=== PATIENT | female | born 1975 | race Caucasian/White ===

== ENCOUNTER 2018-05-27 11:37 | Inpatient (IN) | payer MEDICARE ==
[2018-05-27] MEDS ORDERED: Albuterol Nebulizer 2.5mg/3mL HHN ONE (12:13)
[2018-05-27] MEDS ORDERED: Ipratropium Neb 0.5 mg/2.5 mL UD HHN ONE (12:13)
[2018-05-27] MEDS ORDERED: Albuterol/Ipratropium Neb 3 ML AERS HHN ONE (12:19)
[2018-05-27] MEDS ORDERED: Mag Sulfate 2gm/50mL Premix 2 GM/50 ML BAG IV ONE (12:20)
[2018-05-27 12:23] LABS: BASOPHILE ABSOLUTE 0.2 Th/cumm (0-0.2); EOSINOPHILE ABSOLUTE 1.3 Th/cmm (0.1-0.4); HEMATOCRIT 43.9 % (41.0-60); HEMOGLOBIN 14.5 gm/dL (12-16); LYMPHOCYTE ABSOLUTE 5.7 Th/cmm (1.5-3.0); MEAN CELL VOLUME 85.9 fl (81-100); MEAN CORPUSCULAR HEMOGLOBIN 28.3 pg (27.0-31.0); MEAN PLATELET VOLUME 8.1 fl; MONOCYTE ABSOLUTE 0.8 Th/cmm (0.3-1.0); NEUTROPHILE ABSOLUTE 12.1 Th/cmm (1.8-8.0); PLATELET COUNT 399 Th/cmm (150-400); RED BLOOD COUNT 5.11 Mil/cmm (3.80-5.10); RED CELL DISTRIBUTION WIDTH 13.6 % (11.5-20.0)
[2018-05-27 12:24] LABS: WHITE BLOOD COUNT 20.1 Th/cmm (4.8-10.8)
--- NOTE | 2018-05-27 12:33 | Diagnostic Imaging Report ---
CHEST X-RAY: AP view INDICATION: Intubation, asthma COMPARISON: None FINDINGS: ET tube is seen with tip 4.5 cm above the chirag. There is diffuse increased interstitial lung markings. No pleural effusions. Hyperinflated lungs are noted. The osseous structures are intact. No pneumothorax. IMPRESSION: ET tube with tip 4.5 cm above the Chirag. Diffuse increased interstitial lung markings which may be secondary to patient's asthma. There may be superimposed interstitial infiltrates.
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
[2018-05-27 12:56] LABS: ANION GAP 18.9 (7.0-16.0); BUN - UREA NITROGEN 10 mg/dL (7-25); CALCIUM SERUM 9.4 mg/dL (8.6-10.3); CARBON DIOXIDE 18.7 mEq/L (21.0-31.0); CHLORIDE 100 mEq/L (98-107); CREATININE - SERUM 1.1 mg/dL (0.6-1.2); GFR AFRICAN-AMERICAN > 60.0 ml/min (>90); GFR NON AFRICAN-AMERICAN 57.6 ml/min; GLUCOSE 254 mg/dL (70-105); MAGNESIUM 2.2 mg/dL (1.9-2.7); POTASSIUM SERUM 4.6 mEq/L (3.5-5.1); SODIUM SERUM 133 mEq/L (136-145)
[2018-05-27 13:08] LABS: ATYPICAL LYMPH 7 %; BAND NEUTROPHILE 2 % (0-10); BASOPHIL 1 % (0-3); LYMPHOCYTE 29 % (20-50); MONOCYTE 4 % (2-10); NEUTROPHILS 44 % (40-80); PLATELET ESTIMATE ADEQUATE (NORMAL)
[2018-05-27 13:10] LABS: EOSINOPHIL 13 % (0-5)
[2018-05-27] MEDS ORDERED: Albuterol/Ipratropium Neb 3 ML AERS HHN PRN (14:07)
[2018-05-27 14:57] LABS: pH 7.23 (7.35-7.45)
[2018-05-27 14:59] LABS: ALLEN TEST Positive
[2018-05-27 15:19] VITALS: BP 140/84
[2018-05-27] MEDS: Albuterol/Ipratropium Neb 3 ML AERS HHN SCH ×3 (15:20→22:51)
[2018-05-27] MEDS: Cefepime 1 GM in Sodium Chloride 0.9% 50 ML IV SCH ×2 (16:00→21:22)
[2018-05-27 16:45] LABS: pH 7.22 (7.35-7.45)
[2018-05-27 16:46] LABS: ALLEN TEST Positive
[2018-05-27] MEDS: D5-0.45NS 1,000 ML IV SCH (17:53)
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
[2018-05-27] MEDS: Budesonide 0.5 Mg/2 mL Ud HHN SCH (18:56)
[2018-05-27 20:34] LABS: URINE SOURCE FOLEY PORT
[2018-05-27 20:40] LABS: URINE BILIRUBIN NEGATIVE (NEGATIVE); URINE BLOOD LARGE (NEGATIVE); URINE GLUCOSE (UA) NEGATIVE (NEGATIVE); URINE KETONE NEGATIVE (NEGATIVE); URINE LEUKOCYTE ESTERASE TRACE (NEGATIVE); URINE MICROSCOPIC INDICATED? YES; URINE NITRATE NEGATIVE (NEGATIVE); URINE PH 5.5 (4.6 - 8.0); URINE PROTEIN TRACE mg/dL (NEGATIVE); URINE UROBILINOGEN 0.2 E.U./dL (0.2 - 1.0)
[2018-05-27] MEDS: Chlorhexidine Gluconate 0.12% 15mL Mouthwash MM SCH (20:40)
[2018-05-27 20:50] LABS: URINE CLARITY HAZY (CLEAR); URINE COLOR PINK
[2018-05-27 20:56] LABS: URINE RBC 50-100 /hpf (0-5)
[2018-05-27 20:57] LABS: URINE EPITHELIAL CELLS RARE /lpf (FEW)
[2018-05-27 20:58] LABS: AMPHETAMINE URINE NEGATIVE (NEGATIVE); BARBITURATES URINE NEGATIVE (NEGATIVE); COCAINE METABOLITE QUAL URINE NEGATIVE (NEGATIVE); METHAMPHETAMINES QUAL URINE NEGATIVE (NEGATIVE); OPIATES (MORPHINE) QUAL. URINE NEGATIVE (NEGATIVE); PHENCYCLIDINE (PCP) URINE NEGATIVE (NEGATIVE); TRICYCLICS (TCA) QUAL. URINE NEGATIVE (NEGATIVE); URINE BACTERIA OCCASIONAL /hpf (NONE SEEN)
[2018-05-27 20:59] LABS: BENZODIAZEPINES QUAL URINE POSITIVE (NEGATIVE); CANNABINOID THC NEGATIVE (NEGATIVE); METHADONE URINE NEGATIVE (NEGATIVE)
[2018-05-27 21:10] LABS: INF A SCREEN NEG FOR INF A; INF B SCREEN NEG FOR INF B
[2018-05-28] MEDS: D5-0.45NS 1,000 ML IV SCH ×2 (02:19→23:15)
[2018-05-28] MEDS: Albuterol/Ipratropium Neb 3 ML AERS HHN SCH ×6 (03:18→22:46)
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
[2018-05-28 04:40] LABS: HEMATOCRIT 39.5 % (41.0-60); HEMOGLOBIN 13.3 gm/dL (12-16); MEAN CELL VOLUME 84.3 fl (81-100); MEAN CORPUSCULAR HEMOGLOBIN 28.3 pg (27.0-31.0); MEAN CORPUSCULAR HGB CONC 33.6 pg (28.0-36.0); RED BLOOD COUNT 4.69 Mil/cmm (3.80-5.10); RED CELL DISTRIBUTION WIDTH 13.1 % (11.5-20.0)
[2018-05-28 04:53] LABS: PLATELET COUNT 285 Th/cmm (150-400); WHITE BLOOD COUNT 22.2 Th/cmm (4.8-10.8)
[2018-05-28 05:12] LABS: ANION GAP 17.2 (7.0-16.0); CARBON DIOXIDE 19.7 mEq/L (21.0-31.0); POTASSIUM SERUM 4.9 mEq/L (3.5-5.1)
[2018-05-28 06:24] LABS: BAND NEUTROPHILE 4 % (0-10); LYMPHOCYTE 4 % (20-50); MONOCYTE 2 % (2-10); NEUTROPHILS 90 % (40-80); PLATELET ESTIMATE ADEQUATE (NORMAL)
[2018-05-28] MEDS: Budesonide 0.5 Mg/2 mL Ud HHN SCH ×2 (07:43→18:59)
[2018-05-28 07:54] LABS: CREATININE - SERUM 1.5 mg/dL (0.6-1.2); GFR AFRICAN-AMERICAN 48.7 ml/min (>90); GFR NON AFRICAN-AMERICAN 40.3 ml/min
--- NOTE | 2018-05-28 08:04 | Diagnostic Imaging Report ---
Exam: Portable chest x-ray HISTORY: Shortness of breath. Prior exam: 05/27/2018 Findings: Portable summation of chest reviewed demonstrates unchanged position of the endotracheal tube terminating 2.2 centers above the chirag. There is evidence for bilateral interstitial infiltrates. The costophrenic angles are clear bony thorax intact reviewed IMPRESSION: Bilateral interstitial infiltrates, unchanged compared to prior examination.
[2018-05-28] MEDS: Chlorhexidine Gluconate 0.12% 15mL Mouthwash MM SCH ×2 (08:05→20:39)
[2018-05-28 08:52] LABS: PaCO2 42.5 mmHg (35.0-45.0); PaO2 82.6 mmHg (80.0-100.0); pH 7.32 (7.35-7.45)
[2018-05-28 08:53] LABS: ALLEN TEST Positive; sO2c 95.3 % (92.0-100.0)
[2018-05-28] MEDS: Cefepime 1 GM in Sodium Chloride 0.9% 50 ML IV SCH ×2 (09:18→20:39)
[2018-05-29] MEDS: Albuterol/Ipratropium Neb 3 ML AERS HHN SCH ×5 (02:36→18:49)
[2018-05-29 04:27] LABS: HEMATOCRIT 35.6 % (41.0-60); HEMOGLOBIN 11.9 gm/dL (12-16); LYMPHOCYTE ABSOLUTE 0.5 Th/cmm (1.5-3.0); MEAN CELL VOLUME 84.8 fl (81-100); MEAN CORPUSCULAR HEMOGLOBIN 28.3 pg (27.0-31.0); MEAN CORPUSCULAR HGB CONC 33.4 pg (28.0-36.0); MEAN PLATELET VOLUME 8.3 fl; MONOCYTE ABSOLUTE 0.6 Th/cmm (0.3-1.0); NEUTROPHILE ABSOLUTE 22.1 Th/cmm (1.8-8.0); PLATELET COUNT 233 Th/cmm (150-400); RED BLOOD COUNT 4.19 Mil/cmm (3.80-5.10); RED CELL DISTRIBUTION WIDTH 13.4 % (11.5-20.0)
[2018-05-29 04:34] LABS: ANION GAP 12.9 (7.0-16.0); CALCIUM SERUM 8.4 mg/dL (8.6-10.3); CARBON DIOXIDE 21.5 mEq/L (21.0-31.0); CREATININE - SERUM 1.3 mg/dL (0.6-1.2); GFR AFRICAN-AMERICAN 57.5 ml/min (>90); GFR NON AFRICAN-AMERICAN 47.5 ml/min; MAGNESIUM 2.4 mg/dL (1.9-2.7); POTASSIUM SERUM 4.4 mEq/L (3.5-5.1)
[2018-05-29 04:38] LABS: WHITE BLOOD COUNT 23.2 Th/cmm (4.8-10.8)
[2018-05-29 07:04] LABS: BAND NEUTROPHILE 2 % (0-10); LYMPHOCYTE 2 % (20-50); MONOCYTE 3 % (2-10); NEUTROPHILS 93 % (40-80); PLATELET ESTIMATE ADEQUATE (NORMAL)
[2018-05-29] MEDS: Budesonide 0.5 Mg/2 mL Ud HHN SCH ×2 (07:43→18:45)
[2018-05-29] MEDS: Chlorhexidine Gluconate 0.12% 15mL Mouthwash MM SCH ×2 (08:07→20:38)
[2018-05-29] MEDS: Cefepime 1 GM in Sodium Chloride 0.9% 50 ML IV SCH (08:12)
--- NOTE | 2018-05-29 09:24 | Diagnostic Imaging Report ---
CHEST X-RAY: AP view INDICATION: Shortness of breath COMPARISON: 05/28/2018 FINDINGS: ET tube is seen with tip 2.2 cm above the Kathy. Bilateral interstitial infiltrates are again noted with suboptimal lung volumes. There may be trace left pleural fluid. Heart size is normal. IMPRESSION: Suboptimal lung volumes with persistent bilateral interstitial infiltrates.
[2018-05-29 09:40] LABS: PaCO2 42.3 mmHg (35.0-45.0); pH 7.33 (7.35-7.45)
[2018-05-29 09:41] LABS: PaO2 61.9 mmHg (80.0-100.0); sO2c 90.1 % (92.0-100.0)
[2018-05-29 09:42] LABS: ALLEN TEST Positive
[2018-05-29] MEDS: D5-0.45NS 1,000 ML IV SCH ×2 (09:49→15:50)
--- NOTE | 2018-05-29 16:28 | Progress Notes ---
DATE: 05/28/2018 PULMONARY PROGRESS NOTE OBJECTIVE: GENERAL: The patient is sedated, appears to be comfortable on the ventilator. VITAL SIGNS: Temperature 98.7, pulse 107, respirations 18, blood pressure 100/52, saturation 96%. CHEST: Good breath sounds, better air entry, decreased wheezing. HEART: Regular rate and rhythm. ABDOMEN: Soft. EXTREMITIES: No edema. LABORATORY DATA: WBC is 22.2, hemoglobin 13.3, hematocrit 39.5, platelets 285. ABGs: pH of 7.32, pCO2 of 42, pO2 of 82, bicarbonate of 21, saturation of 95%. Sodium 134, potassium 4.3, BUN 15, creatinine 1.5, lactic acid 2.34. IMAGING: Chest x-ray showed ET tube in place, bibasilar infiltrates. IMPRESSION: 1. Respiratory failure. 2. Asthma exacerbation. 3. Pneumonia. 4. Weakness. 5. Obesity. PLAN: 1. Continue ventilator support. 2. IV fluids. 3. Nebulizer treatment. 4. IV steroids decreased. 5. Follow up ABGs. Start weaning tomorrow if stable. Discussed with at bedside. JOB# [id number]
[2018-05-29] MEDS: Vancomycin HCl 1.5 GM in Sodium Chloride 0.9% 500 ML IV SCH (17:30)
[2018-05-30] MEDS: Albuterol/Ipratropium Neb 3 ML AERS HHN SCH ×7 (00:05→22:49)
[2018-05-30] MEDS: Vancomycin HCl 1.5 GM in Sodium Chloride 0.9% 500 ML IV SCH ×2 (04:21→18:00)
[2018-05-30 05:28] LABS: HEMATOCRIT 34.8 % (41.0-60); HEMOGLOBIN 11.7 gm/dL (12-16); MEAN CELL VOLUME 86.1 fl (81-100); MEAN CORPUSCULAR HEMOGLOBIN 28.9 pg (27.0-31.0); MEAN CORPUSCULAR HGB CONC 33.5 pg (28.0-36.0); MEAN PLATELET VOLUME 8.9 fl; PLATELET COUNT 236 Th/cmm (150-400); RED BLOOD COUNT 4.04 Mil/cmm (3.80-5.10); RED CELL DISTRIBUTION WIDTH 14.1 % (11.5-20.0)
[2018-05-30 05:31] LABS: BUN - UREA NITROGEN 27 mg/dL (7-25); CALCIUM SERUM 8.4 mg/dL (8.6-10.3); CARBON DIOXIDE 23.6 mEq/L (21.0-31.0); CHLORIDE 109 mEq/L (98-107); GFR AFRICAN-AMERICAN > 60.0 ml/min (>90); GFR NON AFRICAN-AMERICAN > 60.0 ml/min; GLUCOSE 154 mg/dL (70-105); POTASSIUM SERUM 4.6 mEq/L (3.5-5.1); SODIUM SERUM 140 mEq/L (136-145)
[2018-05-30 05:35] LABS: WHITE BLOOD COUNT 21.3 Th/cmm (4.8-10.8)
[2018-05-30] MEDS: D5-0.45NS 1,000 ML IV SCH (05:54)
[2018-05-30 06:45] LABS: LYMPHOCYTE 2 % (20-50); MONOCYTE 3 % (2-10); NEUTROPHILS 95 % (40-80); PLATELET ESTIMATE ADEQUATE (NORMAL)
[2018-05-30] MEDS: Budesonide 0.5 Mg/2 mL Ud HHN SCH ×2 (07:39→19:13)
[2018-05-30] MEDS: Chlorhexidine Gluconate 0.12% 15mL Mouthwash MM SCH ×2 (08:30→20:56)
[2018-05-30 09:17] LABS: pH 7.39 (7.35-7.45)
[2018-05-30 09:18] LABS: PaCO2 39.2 mmHg (35.0-45.0); PaO2 67.1 mmHg (80.0-100.0)
[2018-05-30 09:23] LABS: sO2c 93.3 % (92.0-100.0)
--- NOTE | 2018-05-30 09:29 | Diagnostic Imaging Report ---
CHEST X-RAY: AP view INDICATION: NG tube placement COMPARISON: 05/29/2018 at 7:17 AM FINDINGS: An NG tube is in place with tip in the stomach. Consider 5 cm advancement for optimal positioning if indicated. Endotracheal tube is seen with tip 4.5 cm above the Kathy. Interstitial infiltrates are seen greatest along the lung bases. IMPRESSION: NG tube within the stomach. Consider 5 cm advancement for optimal positioning. ET tube with tip 4.5 cm above the Kathy Interstitial infiltrates greatest within the lung bases.
--- NOTE | 2018-05-30 09:31 | Diagnostic Imaging Report ---
CHEST X-RAY: AP view INDICATION: Shortness of breath COMPARISON: 05/29/2018 FINDINGS: Endotracheal tube is seen with tip 5.4 cm above the chirag. NG tube is visualized coursing below the diaphragm with tip not seen. Persistent bilateral interstitial infiltrates are seen greatest along the lung bases. IMPRESSION: Persistent bilateral interstitial infiltrates, greatest in the lung bases ET tube with tip 5.4 cm above the Chirag.
--- NOTE | 2018-05-30 15:41 | Progress Notes ---
DATE: 05/29/2018 SUBJECTIVE: The patient is awake, arousable, wants the tube out, some agitation at times, no distress. OBJECTIVE: VITAL SIGNS: Temperature 97.5, pulse 93, respirations 20, blood pressure 123/74, saturation is 94%. CHEST: Good breath sounds. No wheezing. Few rhonchi. HEART: Regular rate and rhythm. No murmurs. ABDOMEN: Soft. EXTREMITIES: No edema. IMAGING: The chest x-ray showed worsening right lower lobe infiltrate. LABORATORY DATA: ABG is pH 7.33, pCO2 42, pO2 61, bicarb 21, saturation 90%. Sodium 134, potassium 4.4, BUN 20, creatinine 1.3. WBC is 23.2, hemoglobin 11.9, hematocrit 35.6, platelets 233. IMPRESSION: 1. Respiratory failure. 2. Pneumonia. 3. Asthma exacerbation. PLAN: 1. Switch broad-spectrum antibiotics to Zosyn and vancomycin. 2. We will have follow up sputum culture. 3. Steroids and IV steroids. 4. Try simv and pressure support and follow up chest x-ray and ABGs and once it is felt that the x-ray is clear, the patient can continue weaning little bit further, hopefully extubate soon. JOB# [id number] HAYLIE
[2018-05-30 20:30] LABS: PaCO2 34.5 mmHg (35.0-45.0); PaO2 61.3 mmHg (80.0-100.0); pH 7.43 (7.35-7.45); sO2c 92.4 % (92.0-100.0)
[2018-05-30 20:31] LABS: ALLEN TEST Y
[2018-05-30] MEDS: Morphine Sulfate 2 mg/mL 1mL Syr IVP PRN (23:53)
[2018-05-31] MEDS: Vancomycin HCl 1.5 GM in Sodium Chloride 0.9% 500 ML IV SCH ×3 (01:05→21:32)
[2018-05-31] MEDS: Albuterol/Ipratropium Neb 3 ML AERS HHN SCH ×5 (02:49→23:25)
[2018-05-31 04:43] LABS: HEMATOCRIT 35.8 % (41.0-60); MEAN CELL VOLUME 85.7 fl (81-100); MEAN CORPUSCULAR HEMOGLOBIN 28.8 pg (27.0-31.0); MEAN CORPUSCULAR HGB CONC 33.6 pg (28.0-36.0); PLATELET COUNT 268 Th/cmm (150-400); RED BLOOD COUNT 4.18 Mil/cmm (3.80-5.10)
[2018-05-31 04:52] LABS: WHITE BLOOD COUNT 15.7 Th/cmm (4.8-10.8)
[2018-05-31 05:18] LABS: ALB/GLOB RATIO 1.4 (1.0-1.8); ALBUMIN 3.5 gm/dL (3.7-5.3); ALKALINE PHOSPHATASE 53 U/L (34-104); ANION GAP 14.4 (7.0-16.0); BILIRUBIN,TOTAL 0.7 mg/dL (0.3-1.0); BUN - UREA NITROGEN 31 mg/dL (7-25); CARBON DIOXIDE 22.9 mEq/L (21.0-31.0); CHLORIDE 110 mEq/L (98-107); CREATININE - SERUM 1.1 mg/dL (0.6-1.2); GFR AFRICAN-AMERICAN > 60.0 ml/min (>90); GFR NON AFRICAN-AMERICAN 57.6 ml/min; GLUCOSE 154 mg/dL (70-105); POTASSIUM SERUM 4.3 mEq/L (3.5-5.1); SGOT 53 U/L (13-39); SGPT/ALT 63 U/L (7-52); SODIUM SERUM 143 mEq/L (136-145); TOTAL PROTEIN,SERUM 6.1 gm/dL (6.0-8.3)
[2018-05-31] MEDS: Budesonide 0.5 Mg/2 mL Ud HHN SCH ×2 (07:22→19:17)
[2018-05-31 07:55] LABS: BAND NEUTROPHILE 1 % (0-10); LYMPHOCYTE 10 % (20-50); MONOCYTE 5 % (2-10); NEUTROPHILS 84 % (40-80)
[2018-05-31] MEDS: Chlorhexidine Gluconate 0.12% 15mL Mouthwash MM SCH ×2 (08:30→20:49)
[2018-05-31] MEDS ORDERED: Sodium Chloride 0.9% 1,000 ML IV SCH (10:00)
--- NOTE | 2018-05-31 10:03 | Diagnostic Imaging Report ---
CHEST X-RAY: AP view INDICATION: Shortness of breath COMPARISON: 05/30/2018 FINDINGS: Support devices are stable. Persistent diffuse and additional infiltrates are seen greatest along the left base. No pleural effusions. Heart size is normal. IMPRESSION: Persistent diffuse interstitial infiltrates, greatest along the left base. If indicated short-term follow-up CT would also provide for additional detail and assessment.
[2018-05-31 11:20] LABS: pH 7.37 (7.35-7.45)
[2018-05-31 11:21] LABS: ALLEN TEST Y
[2018-05-31] MEDS ORDERED: Sodium Chloride 0.9% 1,000 ML IV ONE (11:48)
[2018-05-31] MEDS ORDERED: Albuterol/Ipratropium Neb 3 ML AERS HHN ONE (12:15)
--- NOTE | 2018-05-31 13:41 | Diagnostic Imaging Report ---
CT Chest without IV contrast HISTORY: Pneumonia COMPARISON: Chest x-ray the same day. Technique: Axial images were obtained from the base of the neck to the upper abdomen without IV contrast. Reconstructions were made. Total DLP 398 CTD I 10.2 Findings: Endotracheal tube is seen with tip 5 cm above the chirag. NG tube is seen with tip in the stomach. Evaluation of mediastinum is limited due to lack of IV contrast. No mediastinal adenopathy. Heart size is normal. No pericardial effusion. Diffuse emphysematous lung changes are seen with bilateral lower lobe infiltrates and consolidation. Hypoventilatory lung changes are also noted. No pleural effusions. The upper abdomen demonstrates no acute abnormalities. Evaluation of the osseous structures demonstrate areas of increased sclerosis along a few thoracic pedicles most pronounced at T9 measuring up to 1.5 cm. IMPRESSION: Extensive pulmonary infiltrates greatest along the lower lung zones, left greater than right, with consolidation changes. Please correlate clinically for pneumonia. Diffuse emphysematous changes of lungs. Incidentally noted areas of increased sclerosis along the pedicular regions most pronounced at T9 measuring up to 1.5 cm. Etiology is uncertain. Although findings may represent bone islands, osseous metastatic disease cannot be completely excluded. Please correlate with clinical findings and old exams. A follow-up nuclear Ed bone scan follow-up may also be obtained for further assessment. ET tube with tip 5 cm above the chirag NG tube in the stomach.
--- NOTE | 2018-05-31 14:56 | Progress Notes ---
DATE: 05/30/2018 PULMONARY PROGRESS NOTE SUBJECTIVE: The patient appears to be doing okay. OBJECTIVE: GENERAL: No distress. Once the tube out, tolerating diet ____ for now. VITAL SIGNS: Temperature is 99.0, pulse is 102, respirations 22, blood pressure 130/82, saturation is 93%. CHEST: Good breath sounds. No wheezing. Few rhonchi. HEART: Regular. ABDOMEN: Soft. EXTREMITIES: No edema. DIAGNOSTIC DATA: Chest x-rays, some decrease in bilateral infiltrates. LABORATORY DATA: WBC 21.3, hemoglobin 9.7, platelets are 236. ABGs: pH 7.39, pCO2 39, pO2 67, bicarbonate is 23. Sodium 140, potassium 4.6, BUN 27, creatinine 1.0. IMPRESSION: 1. Respiratory failure. 2. Pneumonia. 3. Asthma. 4. Weakness. PLAN: The patient will be given weaning trial; if not tolerated, we will try again tomorrow. Follow up ABG and chest x-ray. JOB# [id number]
[2018-05-31] MEDS: Azithromycin 500 MG in Sodium Chloride 0.9% 250 ML IV SCH (15:15)
[2018-05-31] MEDS: Morphine Sulfate 2 mg/mL 1mL Syr IVP PRN (22:39)
[2018-06-01] MEDS: Albuterol/Ipratropium Neb 3 ML AERS HHN SCH ×6 (04:14→22:41)
[2018-06-01 04:33] LABS: HEMATOCRIT 32.2 % (41.0-60); MEAN CELL VOLUME 85.3 fl (81-100); MEAN CORPUSCULAR HEMOGLOBIN 29.1 pg (27.0-31.0); MEAN CORPUSCULAR HGB CONC 34.1 pg (28.0-36.0); MEAN PLATELET VOLUME 8.3 fl; PLATELET COUNT 243 Th/cmm (150-400); RED BLOOD COUNT 3.78 Mil/cmm (3.80-5.10); RED CELL DISTRIBUTION WIDTH 13.9 % (11.5-20.0)
[2018-06-01 04:40] LABS: WHITE BLOOD COUNT 15.9 Th/cmm (4.8-10.8)
[2018-06-01 05:10] LABS: ANION GAP 11.1 (7.0-16.0); BUN - UREA NITROGEN 35 mg/dL (7-25); CALCIUM SERUM 7.7 mg/dL (8.6-10.3); CARBON DIOXIDE 24.6 mEq/L (21.0-31.0); CHLORIDE 113 mEq/L (98-107); CREATININE - SERUM 0.9 mg/dL (0.6-1.2); GFR AFRICAN-AMERICAN > 60.0 ml/min (>90); GFR NON AFRICAN-AMERICAN > 60.0 ml/min; GLUCOSE 132 mg/dL (70-105); MAGNESIUM 2.5 mg/dL (1.9-2.7); POTASSIUM SERUM 4.7 mEq/L (3.5-5.1); SODIUM SERUM 144 mEq/L (136-145)
[2018-06-01 05:34] LABS: LYMPHOCYTE 4 % (20-50); MONOCYTE 4 % (2-10); NEUTROPHILS 92 % (40-80); PLATELET ESTIMATE ADEQUATE (NORMAL)
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
[2018-06-01] MEDS: Budesonide 0.5 Mg/2 mL Ud HHN SCH ×2 (07:25→18:50)
[2018-06-01] MEDS: Chlorhexidine Gluconate 0.12% 15mL Mouthwash MM SCH (08:00)
--- NOTE | 2018-06-01 08:12 | Diagnostic Imaging Report ---
Exam: Chest portable HISTORY: Shortness of breath Findings: Portable initially chest at 0 750 reviewed and compared to prior study the early demonstrates unchanged appearance of the bilateral pulmonic infiltrates with superimposed congestion. The endotracheal tube and NG tube are noted. The costophrenic angles are clear there is evidence for right basilar atelectasis most likely pleural thickening. Bony thorax is intact. IMPRESSION: Unchanged prior to prior study day prior.
[2018-06-01 09:03] LABS: pH 7.37 (7.35-7.45); sO2c 90.5 % (92.0-100.0)
[2018-06-01 09:04] LABS: ALLEN TEST Y
[2018-06-01] MEDS: Vancomycin HCl 1.5 GM in Sodium Chloride 0.9% 500 ML IV SCH ×2 (10:00→21:23)
[2018-06-01 12:13] LABS: PaCO2 42.2 mmHg (35.0-45.0); PaO2 59.8 mmHg (80.0-100.0); pH 7.38 (7.35-7.45)
[2018-06-01 12:15] LABS: ALLEN TEST Y
[2018-06-01] MEDS: Azithromycin 500 MG in Sodium Chloride 0.9% 250 ML IV SCH (15:43)
--- NOTE | 2018-06-01 20:59 | Progress Notes ---
DATE: 05/31/2018 SUBJECTIVE: The patient appears to be doing okay, still having some secretions, tolerating current settings, sats are running at 92-93% at 50%. OBJECTIVE: VITAL SIGNS: Temperature is 98.5, pulse is 105, respirations are 18, and blood pressure is 150/73. CHEST: Good breath sounds, few rhonchi, but decreased. HEART: Regular rate and rhythm. ABDOMEN: Soft. EXTREMITIES: No edema. DIAGNOSTIC STUDIES: Chest x-ray shows some decrease in infiltrate on the right side, but some evidence of fluid in the left base. A CT chest; bilateral infiltrate, no other abnormalities. IMPRESSION: 1. Respiratory failure. 2. Bilateral pneumonia. 3. Asthma. 4. Obesity. PLAN: 1. Continue IV antibiotics, add Zithromax. 2. Follow up CBC. 3. Suggest ID consultation. 4. Legionella titers. 5. We will keep the patient one more day on the vent and hopefully clear the pneumonia a little bit more before giving a final extubation trial. Discussed with nursing staff. JOB# [id number]
--- NOTE | 2018-06-01 23:59 | Infectious Disease Prog Note ---
Infectious Disease Subjective - Review of Systems Service Date: 06/01/18 Events since last encounter: Patient was extubated successfully, gives h/o CORONADO and tuberous sclerosis. Otherwise, she feels better. Subjective: above normal temperature. On ventimask. Infectious Disease Objective - Results Result Diagrams: 06/01/18 04:10 06/01/18 04:10 Recent Labs: Laboratory Last Values WBC 15.9 Th/cmm (4.8-10.8) H 06/01/18 04:10 RBC 3.78 Mil/cmm (3.80-5.10) L 06/01/18 04:10 Hgb 11.0 gm/dL (12-16) L 06/01/18 04:10 Hct 32.2 % (41.0-60) L 06/01/18 04:10 MCV 85.3 fl (81-100) 06/01/18 04:10 MCH 29.1 pg (27.0-31.0) 06/01/18 04:10 MCHC Differential 34.1 pg (28.0-36.0) 06/01/18 04:10 RDW 13.9 % (11.5-20.0) 06/01/18 04:10 Plt Count 243 Th/cmm (150-400) 06/01/18 04:10 MPV 8.3 fl 06/01/18 04:10 Add Manual Diff YES 06/01/18 04:10 Band Neutrophils % 1 % (0-10) 05/31/18 04:15 Neutrophils (Manual) 92 % (40-80) H 06/01/18 04:10 Lymphocytes 4 % (20-50) L 06/01/18 04:10 Monocytes 4 % (2-10) 06/01/18 04:10 Eosinophils 13 % (0-5) H 05/27/18 12:10 Basophils 1 % (0-3) 05/27/18 12:10 Atypical Lymphocytes 7 % 05/27/18 12:10 Platelet Estimate ADEQUATE (NORMAL) 06/01/18 04:10 Specimen Source ARTERIAL 06/01/18 12:00 Sample Site Right Radial 06/01/18 12:00 pH 7.38 (7.35-7.45) 06/01/18 12:00 pCO2 42.2 mmHg (35.0-45.0) 06/01/18 12:00 pO2 59.8 mmHg (80.0-100.0) L 06/01/18 12:00 HCO3 24.5 mEq/L (20.0-26.0) 06/01/18 12:00 Base Excess -0.6 mEq/L (-3.0-3.0) 06/01/18 12:00 O2 Saturation 90.0 % (92.0-100.0) L 06/01/18 12:00 Obi Test Y 06/01/18 12:00 Vent Rate N/A 06/01/18 12:00 Inspired O2 60 06/01/18 12:00 Tidal Volume N/A 06/01/18 12:00 PEEP N/A 06/01/18 12:00 Pressure (ins/psv/peep) N/A 06/01/18 12:00 Critical Value DRAMOS 06/01/18 12:00 Sodium 144 mEq/L (136-145) 06/01/18 04:10 Potassium 4.7 mEq/L (3.5-5.1) 06/01/18 04:10 Chloride 113 mEq/L (98-107) H 06/01/18 04:10 Carbon Dioxide 24.6 mEq/L (21.0-31.0) 06/01/18 04:10 Anion Gap 11.1 (7.0-16.0) 06/01/18 04:10 BUN 35 mg/dL (7-25) H 06/01/18 04:10 Creatinine 0.9 mg/dL (0.6-1.2) 06/01/18 04:10 Est GFR ( Amer) > 60.0 ml/min (>90) 06/01/18 04:10 Est GFR (Non-Af Amer) > 60.0 ml/min 06/01/18 04:10 BUN/Creatinine Ratio 38.9 06/01/18 04:10 Glucose 132 mg/dL (70-105) H 06/01/18 04:10 Whole Bld Lactic Acid 2.34 mmol/L (0.60-1.99) H* 05/28/18 06:05 Calcium 7.7 mg/dL (8.6-10.3) L 06/01/18 04:10 Magnesium 2.5 mg/dL (1.9-2.7) 06/01/18 04:10 Total Bilirubin 0.7 mg/dL (0.3-1.0) 05/31/18 04:15 AST 53 U/L (13-39) H 05/31/18 04:15 ALT 63 U/L (7-52) H 05/31/18 04:15 Alkaline Phosphatase 53 U/L (34-104) 05/31/18 04:15 Total Protein 6.1 gm/dL (6.0-8.3) 05/31/18 04:15 Albumin 3.5 gm/dL (3.7-5.3) L 05/31/18 04:15 Globulin 2.6 gm/dL 05/31/18 04:15 Albumin/Globulin Ratio 1.4 (1.0-1.8) 05/31/18 04:15 Serum , Qual NEGATIVE (NEGATIVE) 05/27/18 14:10 Urine Source [place] 05/27/18 20:15 Urine Color PINK 05/27/18 20:15 Urine Clarity HAZY (CLEAR) 05/27/18 20:15 Urine pH 5.5 (4.6 - 8.0) 05/27/18 20:15 Ur Specific [place] 1.015 (1.005-1.030) 05/27/18 20:15 Urine Protein TRACE mg/dL (NEGATIVE) 05/27/18 20:15 Urine Glucose (UA) NEGATIVE mg/dL (NEGATIVE) 05/27/18 20:15 Urine Ketones NEGATIVE mg/dL (NEGATIVE) 05/27/18 20:15 Urine Blood LARGE (NEGATIVE) H 05/27/18 20:15 Urine Nitrate NEGATIVE (NEGATIVE) 05/27/18 20:15 Urine Bilirubin NEGATIVE (NEGATIVE) 05/27/18 20:15 Urine Urobilinogen 0.2 E.U./dL (0.2 - 1.0) 05/27/18 20:15 Ur Leukocyte Esterase TRACE (NEGATIVE) H 05/27/18 20:15 Urine RBC 50-100 /hpf (0-5) H 05/27/18 20:15 Urine WBC 2-5 /hpf (0-5) 05/27/18 20:15 Ur Epithelial Cells RARE /lpf (FEW) 05/27/18 20:15 Urine Bacteria OCCASIONAL /hpf (NONE SEEN) 05/27/18 20:15 Fluid Glucose 132.0 mg/dL 05/30/18 15:35 Vancomycin Trough 13.0 ug/mL (5-10) H 05/30/18 15:35 Urine Opiates Screen NEGATIVE (NEGATIVE) 05/27/18 20:15 Urine Methadone Screen NEGATIVE (NEGATIVE) 05/27/18 20:15 Ur Barbiturates Screen NEGATIVE (NEGATIVE) 05/27/18 20:15 Ur Tricyclics Screen NEGATIVE (NEGATIVE) 05/27/18 20:15 Ur Phencyclidine Scrn NEGATIVE (NEGATIVE) 05/27/18 20:15 Amphetamines Screen NEGATIVE (NEGATIVE) 05/27/18 20:15 U Methamphetamines Scrn NEGATIVE (NEGATIVE) 05/27/18 20:15 U Benzodiazepines Scrn POSITIVE (NEGATIVE) H 05/27/18 20:15 U Cocaine Metab Screen NEGATIVE (NEGATIVE) 05/27/18 20:15 U Cannabinoids Screen NEGATIVE (NEGATIVE) 05/27/18 20:15 Influenza A (Rapid) NEG FOR INF A 05/27/18 20:25 Influenza B (Rapid) NEG FOR INF B 05/27/18 20:25 - Physical Exam Vitals and I&O: Vital Signs Temp 98.8 F 06/01/18 23:00 Pulse 87 06/01/18 23:00 Resp 18 06/01/18 23:00 BP 152/107 06/01/18 23:00 Pulse Ox 93 06/01/18 23:00 Intake & Output 06/01/18 06/01/18 06/02/18 06:59 18:59 06:59 Intake Total 2560.520 1200 Output Total 1000 900 Balance 1560.520 300 Weight (lbs) 113.398 kg 111.13 kg Intake: Intake, IV Amount 1640.520 600 Piperacillin Sodium/ 100 100 Tazobact 4.5 gm In Sodium Chloride 0.9% 100 ml @ 100 mls/hr IV Q8H [facility] Rx# :[id number] Propofol 1,000 mg In 100 468.520 ml @ 40 MCG/KG/MIN 28.086 mls/hr IV TITR [facility] Rx#: [id number] Sodium Chloride 0.9% 1, 572.0 000 ml @ 30 mls/hr IV . Q24H [facility] Rx#:[id number] Vancomycin HCl 1.5 gm In 500 500 Sodium Chloride 0.9% 500 ml @ 250 mls/hr IV Q12HR@ 1000,2200 [facility] Rx#: [id number] Tube Feeding 720 Other 200 600 Output: Urine 1000 900 Other: # Bowel Movements 1 1 Stool Characteristics Soft Soft Soft Liquid Brown Brown Brown Weight Source Bedscale Bedscale Active Medications: Current Medications Acetylcysteine (Mucomyst 20%) 2 ml HHN Q4HRT [facility] Stop: 07/28/18 14:59 Last Admin: 06/01/18 22:41 Dose: 2 ml Albuterol/Ipratropium (Duoneb Neb) 3 ml HHN Q4HRT [facility] Stop: 07/26/18 15:14 Last Admin: 06/01/18 22:41 Dose: 3 ml Budesonide (Pulmicort) 0.5 mg HHN BIDRT [facility] Stop: 07/26/18 18:59 Last Admin: 06/01/18 18:50 Dose: 0.5 mg Piperacillin Sod/Tazobactam (Sod 4.5 gm/ Sodium Chloride) 100 mls @ 100 mls/hr IV Q8H [facility] Stop: 07/28/18 14:59 Last Admin: 06/01/18 14:48 Dose: 100 mls/hr Vancomycin HCl 1.5 gm/ Sodium (Chloride) 500 mls @ 250 mls/hr IV Q12HR@1000, 2200 [facility] Stop: 07/30/18 00:59 Last Admin: 06/01/18 21:23 Dose: 250 mls/hr Azithromycin 500 mg/ Sodium (Chloride) 250 mls @ 250 mls/hr IV Q24HR [facility] Stop: 07/30/18 14:59 Last Admin: 06/01/18 15:43 Dose: 250 mls/hr Lorazepam (Ativan) 1 mg IVP Q4HR PRN; Protocol PRN Reason: Agitation Stop: 07/27/18 19:25 Last Admin: 06/01/18 02:22 Dose: 1 mg Methylprednisolone Sodium Succinate (Solu-Medrol) 80 mg IVP Q8HR [facility] Stop: 07/30/18 14:29 Last Admin: 06/01/18 20:46 Dose: 80 mg Miscellaneous (Vancomycin Iv Per Pharmacy) 1 ea PRN PRN PRN Reason: PROTOCOL Stop: 07/28/18 14:01 Miscellaneous (Zosyn Iv Per Pharmacy) 1 ea PRN PRN PRN Reason: PROTOCOL Stop: 07/28/18 14:04 Morphine Sulfate (Morphine) 1 mg IVP Q4HR PRN PRN Reason: Pain (Moderate) Stop: 07/29/18 10:20 Last Admin: 05/31/18 22:39 Dose: 1 mg Pantoprazole Sodium (Protonix) 40 mg IVP DAILY [facility] Stop: 07/26/18 20:59 Last Admin: 06/01/18 08:47 Dose: 40 mg General: no acute distress, well developed, well nourished HEENT: atraumatic, normocephalic, PERRLA Neck: supple, no thyromegaly Cardiovascular: S1S2, regular Lungs: clear to auscultation bilaterally, clear to percussion, crackles Abdomen: soft, no tender, no distended Extremities: no cyanosis, no clubbing, no edema Neurological: awake, alert, oriented Skin: intact - Procedures Procedures: Procedures Procedure Code Date RESPIRATORY VENTILATION, GREATER THAN 96 CONSECUTIVE HOURS [id number] 05/27/18 Infectious Disease Assmt/Plan - Assessment Assessment: 1. Pneumonia. 2. Respiratory failure. 3. Sepsis. 4. Asthma and chronic obstructive pulmonary disease. 5. May have interstitial lung disease. 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 - Plan Plan: 1. Continue vancomycin, Zosyn and Zithromax at this time. 2. Continue same treatment. Nutritional Asmnt/Malnutr-PDOC - Dietary Evaluation Malnutrition Findings (Please click <Entered> for more info): Nutritional Asmnt/Malnutrition Start: 05/28/18 14: 15 Text: Status: Complete Freq: Protocol: Document 05/28/18 14:15 [email or web address] (Rec: 05/28/18 14:37 [email or web address]) Nutritional Asmnt/Malnutrition Patient General Information Nutritional Screening High Risk Diagnosis respiratory arrest Pertinent Medical Hx/Surgical Hx asthma/COPD Subjective Information Pt from home admitted for respiratory arrest. Pt seen intubated to vent at time of visit. Pt is on propofol noted d/t increasing restlessness per RN note. Glucose 254 at admission noted, trending down to 168 today. Current Diet Order/ Nutrition Support no diet order Pertinent Medications D5-0.45ns, protonix, propofol (55mcg/kg/min) Pertinent Labs 05/28 Na 134, Cr 1.5, glucose 168 05/27 Na 133, Glucose 254 Nutritional Hx/Data Height 1.78 m Height (Calculated Centimeters) 177.8 Current Weight (lbs) 116.12 kg Weight (Calculated Kilograms) 116.1 Weight (Calculated Grams) 200163.6 [place] Body Weight 150 Body Mass Index (BMI) 36.7 Weight Status Obese GI Symptoms GI Symptoms None Last BM not indicated Skin Integrity/Comment: intact Current %PO Negligible < 25% Estimated Nutritional Goals BEE in Kcals: Adj wt of IBW Calories/Kcals/Kg 25-30 adj wt 80kg Kcals Calculated 5250-4059 Protein: Adj wt of IBW Protein g/k Protein Calculated 80 Fluid: ml 2000-2400ml (1ml/kcal) Nutritional Problem 1. Problem Problem inadequate energy intake Etiology pt intubated on vent secondary to respiratory arrest Signs/Symptoms: Pt on NPO status Intervention/Recommendation Comments 1. Monitor NPO status. Will consider alternative nutrition route if pt not able to start oral diet. 2. Monitor wt, labs and skin integrity 3. F/U as high risk in 2-3 days Expected Outcomes/Goals Expected Outcomes/Goals 1. Pt to meet at least 75% of nutritinal needs via oral diet or nutrition support 2. Wt stability, skin to remain intact, labs to approach WNL.
[2018-06-02] MEDS: Albuterol/Ipratropium Neb 3 ML AERS HHN SCH ×6 (02:56→23:10)
[2018-06-02] MEDS: Budesonide 0.5 Mg/2 mL Ud HHN SCH ×2 (06:33→19:15)
[2018-06-02 07:34] LABS: HEMATOCRIT 36.4 % (41.0-60); MEAN CELL VOLUME 87.1 fl (81-100); MEAN CORPUSCULAR HEMOGLOBIN 28.7 pg (27.0-31.0); MEAN PLATELET VOLUME 8.2 fl; PLATELET COUNT 241 Th/cmm (150-400); RED BLOOD COUNT 4.18 Mil/cmm (3.80-5.10); RED CELL DISTRIBUTION WIDTH 13.8 % (11.5-20.0)
[2018-06-02 07:45] LABS: WHITE BLOOD COUNT 17.5 Th/cmm (4.8-10.8)
[2018-06-02 07:47] LABS: ANION GAP 12.3 (7.0-16.0); BUN - UREA NITROGEN 35 mg/dL (7-25); CALCIUM SERUM 8.6 mg/dL (8.6-10.3); CARBON DIOXIDE 26.3 mEq/L (21.0-31.0); CHLORIDE 109 mEq/L (98-107); CREATININE - SERUM 0.8 mg/dL (0.6-1.2); GFR AFRICAN-AMERICAN > 60.0 ml/min (>90); GFR NON AFRICAN-AMERICAN > 60.0 ml/min; GLUCOSE 137 mg/dL (70-105); POTASSIUM SERUM 4.6 mEq/L (3.5-5.1); SODIUM SERUM 143 mEq/L (136-145)
[2018-06-02 08:08] LABS: BAND NEUTROPHILE 1 % (0-10); BASOPHIL 0 % (0-3); EOSINOPHIL 0 % (0-5); LYMPHOCYTE 8 % (20-50); MONOCYTE 3 % (2-10); NEUTROPHILS 88 % (40-80)
--- NOTE | 2018-06-02 08:25 | Diagnostic Imaging Report ---
Exam: Portable chest x-ray HISTORY: Shortness of breath. Findings: Portable summation of the chest at 0729 hours reviewed and compared to prior study of 06/01/2018 demonstrates unchanged appearance of bilateral interstitial infiltrates most likely with superimposed congestion. The patient has been extubated. The distal tip of NG tube is not visualized. The costophrenic angles are clear. IMPRESSION: Status post extubation. Unchanged appearance of bilateral infiltrates with superimposed congestion.
[2018-06-02] MEDS: Vancomycin HCl 1.5 GM in Sodium Chloride 0.9% 500 ML IV SCH (09:41)
--- NOTE | 2018-06-02 09:41 | Infectious Disease Prog Note ---
Infectious Disease Subjective - Review of Systems Service Date: 06/02/18 Subjective: above normal temperature. On ventimask. Infectious Disease Objective - Results Result Diagrams: 06/02/18 07:15 06/02/18 07:15 Recent Labs: Laboratory Last Values WBC 17.5 Th/cmm (4.8-10.8) H 06/02/18 07:15 RBC 4.18 Mil/cmm (3.80-5.10) 06/02/18 07:15 Hgb 12.0 gm/dL (12-16) 06/02/18 07:15 Hct 36.4 % (41.0-60) L 06/02/18 07:15 MCV 87.1 fl (81-100) 06/02/18 07:15 MCH 28.7 pg (27.0-31.0) 06/02/18 07:15 MCHC Differential 33.0 pg (28.0-36.0) 06/02/18 07:15 RDW 13.8 % (11.5-20.0) 06/02/18 07:15 Plt Count 241 Th/cmm (150-400) 06/02/18 07:15 MPV 8.2 fl 06/02/18 07:15 Add Manual Diff YES 06/02/18 07:15 Band Neutrophils % 1 % (0-10) 06/02/18 07:15 Neutrophils (Manual) 88 % (40-80) H 06/02/18 07:15 Lymphocytes 8 % (20-50) L 06/02/18 07:15 Monocytes 3 % (2-10) 06/02/18 07:15 Eosinophils 0 % (0-5) 06/02/18 07:15 Basophils 0 % (0-3) 06/02/18 07:15 Atypical Lymphocytes 7 % 05/27/18 12:10 Platelet Estimate ADEQUATE (NORMAL) 06/01/18 04:10 Specimen Source ARTERIAL 06/01/18 12:00 Sample Site Right Radial 06/01/18 12:00 pH 7.38 (7.35-7.45) 06/01/18 12:00 pCO2 42.2 mmHg (35.0-45.0) 06/01/18 12:00 pO2 59.8 mmHg (80.0-100.0) L 06/01/18 12:00 HCO3 24.5 mEq/L (20.0-26.0) 06/01/18 12:00 Base Excess -0.6 mEq/L (-3.0-3.0) 06/01/18 12:00 O2 Saturation 90.0 % (92.0-100.0) L 06/01/18 12:00 Obi Test Y 06/01/18 12:00 Vent Rate N/A 06/01/18 12:00 Inspired O2 60 06/01/18 12:00 Tidal Volume N/A 06/01/18 12:00 PEEP N/A 06/01/18 12:00 Pressure (ins/psv/peep) N/A 06/01/18 12:00 Critical Value DRAMOS 06/01/18 12:00 Sodium 143 mEq/L (136-145) 06/02/18 07:15 Potassium 4.6 mEq/L (3.5-5.1) 06/02/18 07:15 Chloride 109 mEq/L (98-107) H 06/02/18 07:15 Carbon Dioxide 26.3 mEq/L (21.0-31.0) 06/02/18 07:15 Anion Gap 12.3 (7.0-16.0) 06/02/18 07:15 BUN 35 mg/dL (7-25) H 06/02/18 07:15 Creatinine 0.8 mg/dL (0.6-1.2) 06/02/18 07:15 Est GFR ( Amer) > 60.0 ml/min (>90) 06/02/18 07:15 Est GFR (Non-Af Amer) > 60.0 ml/min 06/02/18 07:15 BUN/Creatinine Ratio 43.8 06/02/18 07:15 Glucose 137 mg/dL (70-105) H 06/02/18 07:15 Whole Bld Lactic Acid 2.34 mmol/L (0.60-1.99) H* 05/28/18 06:05 Calcium 8.6 mg/dL (8.6-10.3) 06/02/18 07:15 Magnesium 2.5 mg/dL (1.9-2.7) 06/01/18 04:10 Total Bilirubin 0.7 mg/dL (0.3-1.0) 05/31/18 04:15 AST 53 U/L (13-39) H 05/31/18 04:15 ALT 63 U/L (7-52) H 05/31/18 04:15 Alkaline Phosphatase 53 U/L (34-104) 05/31/18 04:15 B-Natriuretic Peptide 32.9 pg/mL (5.0-100.0) 06/02/18 07:15 Total Protein 6.1 gm/dL (6.0-8.3) 05/31/18 04:15 Albumin 3.5 gm/dL (3.7-5.3) L 05/31/18 04:15 Globulin 2.6 gm/dL 05/31/18 04:15 Albumin/Globulin Ratio 1.4 (1.0-1.8) 05/31/18 04:15 Serum , Qual NEGATIVE (NEGATIVE) 05/27/18 14:10 Urine Source [place] 05/27/18 20:15 Urine Color PINK 05/27/18 20:15 Urine Clarity HAZY (CLEAR) 05/27/18 20:15 Urine pH 5.5 (4.6 - 8.0) 05/27/18 20:15 Ur Specific [place] 1.015 (1.005-1.030) 05/27/18 20:15 Urine Protein TRACE mg/dL (NEGATIVE) 05/27/18 20:15 Urine Glucose (UA) NEGATIVE mg/dL (NEGATIVE) 05/27/18 20:15 Urine Ketones NEGATIVE mg/dL (NEGATIVE) 05/27/18 20:15 Urine Blood LARGE (NEGATIVE) H 05/27/18 20:15 Urine Nitrate NEGATIVE (NEGATIVE) 05/27/18 20:15 Urine Bilirubin NEGATIVE (NEGATIVE) 05/27/18 20:15 Urine Urobilinogen 0.2 E.U./dL (0.2 - 1.0) 05/27/18 20:15 Ur Leukocyte Esterase TRACE (NEGATIVE) H 05/27/18 20:15 Urine RBC 50-100 /hpf (0-5) H 05/27/18 20:15 Urine WBC 2-5 /hpf (0-5) 05/27/18 20:15 Ur Epithelial Cells RARE /lpf (FEW) 05/27/18 20:15 Urine Bacteria OCCASIONAL /hpf (NONE SEEN) 05/27/18 20:15 Fluid Glucose 132.0 mg/dL 05/30/18 15:35 Vancomycin Trough 11.2 ug/mL (5-10) H 06/02/18 07:15 Urine Opiates Screen NEGATIVE (NEGATIVE) 05/27/18 20:15 Urine Methadone Screen NEGATIVE (NEGATIVE) 05/27/18 20:15 Ur Barbiturates Screen NEGATIVE (NEGATIVE) 05/27/18 20:15 Ur Tricyclics Screen NEGATIVE (NEGATIVE) 05/27/18 20:15 Ur Phencyclidine Scrn NEGATIVE (NEGATIVE) 05/27/18 20:15 Amphetamines Screen NEGATIVE (NEGATIVE) 05/27/18 20:15 U Methamphetamines Scrn NEGATIVE (NEGATIVE) 05/27/18 20:15 U Benzodiazepines Scrn POSITIVE (NEGATIVE) H 05/27/18 20:15 U Cocaine Metab Screen NEGATIVE (NEGATIVE) 05/27/18 20:15 U Cannabinoids Screen NEGATIVE (NEGATIVE) 05/27/18 20:15 Influenza A (Rapid) NEG FOR INF A 05/27/18 20:25 Influenza B (Rapid) NEG FOR INF B 05/27/18 20:25 - Physical Exam Vitals and I&O: Vital Signs Temp 98.3 F 06/02/18 08:00 Pulse 84 06/02/18 09:34 Resp 15 06/02/18 08:00 BP 159/114 06/02/18 09:34 Pulse Ox 94 06/02/18 08:00 Intake & Output 06/01/18 06/02/18 06/02/18 18:59 06:59 18:59 Intake Total 1300 1340 100 Output Total 900 600 Balance 400 740 100 Weight (lbs) 111.13 kg 111.221 kg Intake: Intake, IV Amount 700 600 100 Piperacillin Sodium/ 200 100 100 Tazobact 4.5 gm In Sodium Chloride 0.9% 100 ml @ 100 mls/hr IV Q8H [facility] Rx# :[id number] Vancomycin HCl 1.5 gm In 500 500 Sodium Chloride 0.9% 500 ml @ 250 mls/hr IV Q12HR@ 1000,2200 [facility] Rx#: [id number] Oral 50 Tube Feeding 690 Other 600 Output: Urine 900 600 Other: # Voids 6 # Bowel Movements 1 5 Stool Characteristics Soft Soft Soft Brown Brown Brown Weight Source Bedscale Bedscale Active Medications: Current Medications Acetylcysteine (Mucomyst 20%) 2 ml HHN Q4HRT [facility] Stop: 07/28/18 14:59 Last Admin: 06/02/18 06:33 Dose: 2 ml Albuterol/Ipratropium (Duoneb Neb) 3 ml HHN Q4HRT [facility] Stop: 07/26/18 15:14 Last Admin: 06/02/18 06:28 Dose: 3 ml Benazepril HCl (Lotensin) 10 mg PO DAILY [facility] Stop: 08/01/18 09:29 Last Admin: 06/02/18 09:34 Dose: 10 mg Budesonide (Pulmicort) 0.5 mg HHN BIDRT [facility] Stop: 07/26/18 18:59 Last Admin: 06/02/18 06:33 Dose: 0.5 mg Piperacillin Sod/Tazobactam (Sod 4.5 gm/ Sodium Chloride) 100 mls @ 100 mls/hr IV Q8H [facility] Stop: 07/28/18 14:59 Last Infusion: 06/02/18 07:10 Dose: Infused Vancomycin HCl 1.5 gm/ Sodium (Chloride) 500 mls @ 250 mls/hr IV Q12HR@1000, 2200 [facility] Stop: 07/30/18 00:59 Last Infusion: 06/02/18 00:17 Dose: Infused Azithromycin 500 mg/ Sodium (Chloride) 250 mls @ 250 mls/hr IV Q24HR [facility] Stop: 07/30/18 14:59 Last Admin: 06/01/18 15:43 Dose: 250 mls/hr Lorazepam (Ativan) 1 mg IVP Q4HR PRN; Protocol PRN Reason: Agitation Stop: 07/27/18 19:25 Last Admin: 06/01/18 02:22 Dose: 1 mg Methylprednisolone Sodium Succinate (Solu-Medrol) 80 mg IVP Q8HR [facility] Stop: 07/30/18 14:29 Last Admin: 06/02/18 05:52 Dose: 80 mg Miscellaneous (Vancomycin Iv Per Pharmacy) 1 ea PRN PRN PRN Reason: PROTOCOL Stop: 07/28/18 14:01 Miscellaneous (Zosyn Iv Per Pharmacy) 1 ea PRN PRN PRN Reason: PROTOCOL Stop: 07/28/18 14:04 Morphine Sulfate (Morphine) 1 mg IVP Q4HR PRN PRN Reason: Pain (Moderate) Stop: 07/29/18 10:20 Last Admin: 05/31/18 22:39 Dose: 1 mg Pantoprazole Sodium (Protonix) 40 mg IVP DAILY [facility] Stop: 07/26/18 20:59 Last Admin: 06/02/18 09:34 Dose: 40 mg General: no acute distress, well developed, well nourished HEENT: atraumatic, normocephalic, PERRLA, EOMI Neck: supple, no thyromegaly Cardiovascular: S1S2, regular Lungs: clear to auscultation bilaterally, clear to percussion Abdomen: soft, no tender, no distended, no mass Extremities: no cyanosis, no clubbing, no edema Neurological: awake, alert, oriented, CN 2-12 intact Skin: intact - Procedures Procedures: Procedures Procedure Code Date RESPIRATORY VENTILATION, GREATER THAN 96 CONSECUTIVE HOURS [id number] 05/27/18 Infectious Disease Assmt/Plan - Assessment Assessment: 1. Pneumonia. 2. Respiratory failure. 3. Sepsis. 4. Asthma and chronic obstructive pulmonary disease. 5. May have interstitial lung disease. 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 - Plan Plan: 1. Continue vancomycin, Zosyn and Zithromax at this time. 2. Continue same treatment. Nutritional Asmnt/Malnutr-PDOC - Dietary Evaluation Malnutrition Findings (Please click <Entered> for more info): Nutritional Asmnt/Malnutrition Start: 05/28/18 14: 15 Text: Status: Complete Freq: Protocol: Document 05/28/18 14:15 [email or web address] (Rec: 05/28/18 14:37 [email or web address] [email or web address]) Nutritional Asmnt/Malnutrition Patient General Information Nutritional Screening High Risk Diagnosis respiratory arrest Pertinent Medical Hx/Surgical Hx asthma/COPD Subjective Information Pt from home admitted for respiratory arrest. Pt seen intubated to vent at time of visit. Pt is on propofol noted d/t increasing restlessness per RN note. Glucose 254 at admission noted, trending down to 168 today. Current Diet Order/ Nutrition Support no diet order Pertinent Medications D5-0.45ns, protonix, propofol (55mcg/kg/min) Pertinent Labs 05/28 Na 134, Cr 1.5, glucose 168 05/27 Na 133, Glucose 254 Nutritional Hx/Data Height 1.78 m Height (Calculated Centimeters) 177.8 Current Weight (lbs) 116.12 kg Weight (Calculated Kilograms) 116.1 Weight (Calculated Grams) 993527.6 [place] Body Weight 150 Body Mass Index (BMI) 36.7 Weight Status Obese GI Symptoms GI Symptoms None Last BM not indicated Skin Integrity/Comment: intact Current %PO Negligible < 25% Estimated Nutritional Goals BEE in Kcals: Adj wt of IBW Calories/Kcals/Kg 25-30 adj wt 80kg Kcals Calculated 4821-0878 Protein: Adj wt of IBW Protein g/k Protein Calculated 80 Fluid: ml 2000-2400ml (1ml/kcal) Nutritional Problem 1. Problem Problem inadequate energy intake Etiology pt intubated on vent secondary to respiratory arrest Signs/Symptoms: Pt on NPO status Intervention/Recommendation Comments 1. Monitor NPO status. Will consider alternative nutrition route if pt not able to start oral diet. 2. Monitor wt, labs and skin integrity 3. F/U as high risk in 2-3 days Expected Outcomes/Goals Expected Outcomes/Goals 1. Pt to meet at least 75% of nutritinal needs via oral diet or nutrition support 2. Wt stability, skin to remain intact, labs to approach WNL.
[2018-06-02] MEDS: Azithromycin 500 MG in Sodium Chloride 0.9% 250 ML IV SCH (16:31)
--- NOTE | 2018-06-02 16:54 | Progress Notes ---
DATE: 06/01/2018 PULMONARY PROGRESS NOTE SUBJECTIVE: The patient is extubated this morning, doing well, asking for food already. She is awake, alert, talking. OBJECTIVE: GENERAL: In no distress, little hoarse voice. VITAL SIGNS: Temperature is 98.8, pulse is 110, respirations is 20, blood pressure is 141/78, saturation 93%. CHEST: Good breath sounds and few rhonchi. HEART: Regular rate and rhythm. ABDOMEN: Soft. EXTREMITIES: No edema. LABORATORY DATA: WBC 15.9, hemoglobin 11.0, platelets 243. ABGs: pH of 7.38, pCO2 of 42, pO2 of 59, bicarbonate of 24, saturation is 90%. Chest x-ray: Some right lower lobe infiltrates, mostly in the left side. Some improvement compared to previous x-ray. IMPRESSION: 1. Respiratory failure. 2. Pneumonia. According to the patient and her , they both had influenza and they were at [facility] where they were given Zithromax. The patient continues to get sick and ended up here with asthma exacerbation, respiratory failure, and the pneumonia. PLAN: 1. Continue antibiotics. 2. Nebulizer treatment. 3. Swallow evaluation and hopefully we can start oral feeding soon. Continue steroids and antibiotics. ID evaluation. Discussed with the patient and in detail. JOB# [id number]
[2018-06-03] MEDS: Albuterol/Ipratropium Neb 3 ML AERS HHN SCH ×6 (02:10→22:19)
[2018-06-03] MEDS: Budesonide 0.5 Mg/2 mL Ud HHN SCH ×2 (06:52→18:56)
[2018-06-03 08:12] LABS: EOSINOPHILE ABSOLUTE 0.1 Th/cmm (0.1-0.4); HEMATOCRIT 40.1 % (41.0-60); HEMOGLOBIN 13.3 gm/dL (12-16); LYMPHOCYTE ABSOLUTE 1.9 Th/cmm (1.5-3.0); MEAN CELL VOLUME 86.1 fl (81-100); MEAN CORPUSCULAR HEMOGLOBIN 28.6 pg (27.0-31.0); MEAN CORPUSCULAR HGB CONC 33.2 pg (28.0-36.0); MEAN PLATELET VOLUME 8.3 fl; MONOCYTE ABSOLUTE 0.9 Th/cmm (0.3-1.0); NEUTROPHILE ABSOLUTE 19.5 Th/cmm (1.8-8.0); PLATELET COUNT 285 Th/cmm (150-400); RED BLOOD COUNT 4.66 Mil/cmm (3.80-5.10)
[2018-06-03 08:16] LABS: WHITE BLOOD COUNT 22.4 Th/cmm (4.8-10.8)
[2018-06-03 08:26] LABS: ANION GAP 14.9 (7.0-16.0); BUN - UREA NITROGEN 37 mg/dL (7-25); CALCIUM SERUM 8.7 mg/dL (8.6-10.3); CARBON DIOXIDE 22.7 mEq/L (21.0-31.0); CHLORIDE 107 mEq/L (98-107); CREATININE - SERUM 0.7 mg/dL (0.6-1.2); GFR AFRICAN-AMERICAN > 60.0 ml/min (>90); GFR NON AFRICAN-AMERICAN > 60.0 ml/min; GLUCOSE 121 mg/dL (70-105); POTASSIUM SERUM 4.6 mEq/L (3.5-5.1); SODIUM SERUM 140 mEq/L (136-145)
[2018-06-03 09:02] LABS: BAND NEUTROPHILE 2 % (0-10); LYMPHOCYTE 6 % (20-50); MONOCYTE 11 % (2-10); NEUTROPHILS 81 % (40-80)
[2018-06-03 09:03] LABS: PLATELET ESTIMATE ADEQUATE (NORMAL)
--- NOTE | 2018-06-03 12:52 | Internal Medicine Prog Note ---
Internal Medicine Subjective - Subjective Service Date: 06/03/18 Patient is:: awake (comfortable) Internal Medicine Objective - Results Result Diagrams: 06/03/18 08:00 06/03/18 08:00 Recent Labs: Laboratory Last Values WBC 22.4 Th/cmm (4.8-10.8) H* 06/03/18 08:00 RBC 4.66 Mil/cmm (3.80-5.10) 06/03/18 08:00 Hgb 13.3 gm/dL (12-16) 06/03/18 08:00 Hct 40.1 % (41.0-60) L 06/03/18 08:00 MCV 86.1 fl (81-100) 06/03/18 08:00 MCH 28.6 pg (27.0-31.0) 06/03/18 08:00 MCHC Differential 33.2 pg (28.0-36.0) 06/03/18 08:00 RDW 14.0 % (11.5-20.0) 06/03/18 08:00 Plt Count 285 Th/cmm (150-400) 06/03/18 08:00 MPV 8.3 fl 06/03/18 08:00 Add Manual Diff YES 06/03/18 08:00 Band Neutrophils % 2 % (0-10) 06/03/18 08:00 Neutrophils (Manual) 81 % (40-80) H 06/03/18 08:00 Lymphocytes 6 % (20-50) L 06/03/18 08:00 Monocytes 11 % (2-10) H 06/03/18 08:00 Eosinophils 0 % (0-5) 06/02/18 07:15 Basophils 0 % (0-3) 06/02/18 07:15 Atypical Lymphocytes 7 % 05/27/18 12:10 Platelet Estimate ADEQUATE (NORMAL) 06/03/18 08:00 Specimen Source ARTERIAL 06/01/18 12:00 Sample Site Right Radial 06/01/18 12:00 pH 7.38 (7.35-7.45) 06/01/18 12:00 pCO2 42.2 mmHg (35.0-45.0) 06/01/18 12:00 pO2 59.8 mmHg (80.0-100.0) L 06/01/18 12:00 HCO3 24.5 mEq/L (20.0-26.0) 06/01/18 12:00 Base Excess -0.6 mEq/L (-3.0-3.0) 06/01/18 12:00 O2 Saturation 90.0 % (92.0-100.0) L 06/01/18 12:00 Obi Test Y 06/01/18 12:00 Vent Rate N/A 06/01/18 12:00 Inspired O2 60 06/01/18 12:00 Tidal Volume N/A 06/01/18 12:00 PEEP N/A 06/01/18 12:00 Pressure (ins/psv/peep) N/A 06/01/18 12:00 Critical Value DRAMOS 06/01/18 12:00 Sodium 140 mEq/L (136-145) 06/03/18 08:00 Potassium 4.6 mEq/L (3.5-5.1) 06/03/18 08:00 Chloride 107 mEq/L (98-107) 06/03/18 08:00 Carbon Dioxide 22.7 mEq/L (21.0-31.0) 06/03/18 08:00 Anion Gap 14.9 (7.0-16.0) 06/03/18 08:00 BUN 37 mg/dL (7-25) H 06/03/18 08:00 Creatinine 0.7 mg/dL (0.6-1.2) 06/03/18 08:00 Est GFR ( Amer) > 60.0 ml/min (>90) 06/03/18 08:00 Est GFR (Non-Af Amer) > 60.0 ml/min 06/03/18 08:00 BUN/Creatinine Ratio 52.9 06/03/18 08:00 Glucose 121 mg/dL (70-105) H 06/03/18 08:00 Whole Bld Lactic Acid 2.34 mmol/L (0.60-1.99) H* 05/28/18 06:05 Calcium 8.7 mg/dL (8.6-10.3) 06/03/18 08:00 Magnesium 2.5 mg/dL (1.9-2.7) 06/01/18 04:10 Total Bilirubin 0.7 mg/dL (0.3-1.0) 05/31/18 04:15 AST 53 U/L (13-39) H 05/31/18 04:15 ALT 63 U/L (7-52) H 05/31/18 04:15 Alkaline Phosphatase 53 U/L (34-104) 05/31/18 04:15 B-Natriuretic Peptide 32.9 pg/mL (5.0-100.0) 06/02/18 07:15 Total Protein 6.1 gm/dL (6.0-8.3) 05/31/18 04:15 Albumin 3.5 gm/dL (3.7-5.3) L 05/31/18 04:15 Globulin 2.6 gm/dL 05/31/18 04:15 Albumin/Globulin Ratio 1.4 (1.0-1.8) 05/31/18 04:15 Serum , Qual NEGATIVE (NEGATIVE) 05/27/18 14:10 Urine Source [place] 05/27/18 20:15 Urine Color PINK 05/27/18 20:15 Urine Clarity HAZY (CLEAR) 05/27/18 20:15 Urine pH 5.5 (4.6 - 8.0) 05/27/18 20:15 Ur Specific [place] 1.015 (1.005-1.030) 05/27/18 20:15 Urine Protein TRACE mg/dL (NEGATIVE) 05/27/18 20:15 Urine Glucose (UA) NEGATIVE mg/dL (NEGATIVE) 05/27/18 20:15 Urine Ketones NEGATIVE mg/dL (NEGATIVE) 05/27/18 20:15 Urine Blood LARGE (NEGATIVE) H 05/27/18 20:15 Urine Nitrate NEGATIVE (NEGATIVE) 05/27/18 20:15 Urine Bilirubin NEGATIVE (NEGATIVE) 05/27/18 20:15 Urine Urobilinogen 0.2 E.U./dL (0.2 - 1.0) 05/27/18 20:15 Ur Leukocyte Esterase TRACE (NEGATIVE) H 05/27/18 20:15 Urine RBC 50-100 /hpf (0-5) H 05/27/18 20:15 Urine WBC 2-5 /hpf (0-5) 05/27/18 20:15 Ur Epithelial Cells RARE /lpf (FEW) 05/27/18 20:15 Urine Bacteria OCCASIONAL /hpf (NONE SEEN) 05/27/18 20:15 Fluid Glucose 132.0 mg/dL 05/30/18 15:35 Vancomycin Trough 13.4 ug/mL (5-10) H 06/03/18 08:00 Urine Opiates Screen NEGATIVE (NEGATIVE) 05/27/18 20:15 Urine Methadone Screen NEGATIVE (NEGATIVE) 05/27/18 20:15 Ur Barbiturates Screen NEGATIVE (NEGATIVE) 05/27/18 20:15 Ur Tricyclics Screen NEGATIVE (NEGATIVE) 05/27/18 20:15 Ur Phencyclidine Scrn NEGATIVE (NEGATIVE) 05/27/18 20:15 Amphetamines Screen NEGATIVE (NEGATIVE) 05/27/18 20:15 U Methamphetamines Scrn NEGATIVE (NEGATIVE) 05/27/18 20:15 U Benzodiazepines Scrn POSITIVE (NEGATIVE) H 05/27/18 20:15 U Cocaine Metab Screen NEGATIVE (NEGATIVE) 05/27/18 20:15 U Cannabinoids Screen NEGATIVE (NEGATIVE) 05/27/18 20:15 Influenza A (Rapid) NEG FOR INF A 05/27/18 20:25 Influenza B (Rapid) NEG FOR INF B 05/27/18 20:25 - Physical Exam Vitals and I&O: Vital Signs Temp 98.4 F 06/03/18 11:55 Pulse 91 06/03/18 11:55 Resp 18 06/03/18 11:55 BP 144/94 06/03/18 11:55 Pulse Ox 92 06/03/18 11:55 Intake & Output 06/02/18 06/03/18 06/03/18 18:59 06:59 18:59 Intake Total 350 470 Balance 350 470 Weight (lbs) 111.266 kg Intake: Intake, IV Amount 350 350 Azithromycin 500 mg In 250 Sodium Chloride 0.9% 250 ml @ 250 mls/hr IV Q24HR [facility] Rx#:[id number] Piperacillin Sodium/ 100 100 Tazobact 4.5 gm In Sodium Chloride 0.9% 100 ml @ 100 mls/hr IV Q8H [facility] Rx# :[id number] Vancomycin HCl 1.25 gm In 250 Sodium Chloride 0.9% 250 ml @ 165 mls/hr IV Q8H [facility] Rx#:[id number] Other 120 Other: # Voids 3 # Bowel Movements 1 Stool Characteristics Soft Soft Brown Formed Weight Source Bedscale Active Medications: Current Medications Acetylcysteine (Mucomyst 20%) 2 ml HHN Q4HRT [facility] Stop: 07/28/18 14:59 Last Admin: 06/03/18 10:34 Dose: 2 ml Albuterol/Ipratropium (Duoneb Neb) 3 ml HHN Q4HRT [facility] Stop: 07/26/18 15:14 Last Admin: 06/03/18 10:34 Dose: 3 ml Benazepril HCl (Lotensin) 10 mg PO DAILY [facility] Stop: 08/01/18 09:29 Last Admin: 06/03/18 08:48 Dose: 10 mg Budesonide (Pulmicort) 0.5 mg HHN BIDRT [facility] Stop: 07/26/18 18:59 Last Admin: 06/03/18 06:52 Dose: 0.5 mg Piperacillin Sod/Tazobactam (Sod 4.5 gm/ Sodium Chloride) 100 mls @ 100 mls/hr IV Q8H [facility] Stop: 07/28/18 14:59 Last Infusion: 06/03/18 01:27 Dose: Infused Azithromycin 500 mg/ Sodium (Chloride) 250 mls @ 250 mls/hr IV Q24HR [facility] Stop: 07/30/18 14:59 Last Infusion: 06/02/18 17:35 Dose: Infused Vancomycin HCl 1.25 gm/ Sodium (Chloride) 250 mls @ 165 mls/hr IV Q8HR@0100, 0900,1700 [facility] Stop: 08/02/18 16:59 Lorazepam (Ativan) 1 mg IVP Q4HR PRN; Protocol PRN Reason: Agitation Stop: 07/27/18 19:25 Last Admin: 06/03/18 01:56 Dose: 1 mg Methylprednisolone Sodium Succinate (Solu-Medrol) 80 mg IVP Q8HR [facility] Stop: 07/30/18 14:29 Last Admin: 06/03/18 12:10 Dose: 80 mg Miscellaneous (Vancomycin Iv Per Pharmacy) 1 ea PRN PRN PRN Reason: PROTOCOL Stop: 07/28/18 14:01 Miscellaneous (Zosyn Iv Per Pharmacy) 1 ea PRN PRN PRN Reason: PROTOCOL Stop: 07/28/18 14:04 Morphine Sulfate (Morphine) 1 mg IVP Q4HR PRN PRN Reason: Pain (Moderate) Stop: 07/29/18 10:20 Last Admin: 05/31/18 22:39 Dose: 1 mg Pantoprazole Sodium (Protonix) 40 mg IVP DAILY [facility] Stop: 07/26/18 20:59 Last Admin: 06/03/18 08:47 Dose: 40 mg General: weak HEENT: NC/AT, PERRLA Neck: Supple, No LAD Lungs: ronchi Cardiovascular: RRR, Normal S1, Normal S2 Abdomen: non-tender, positive bowel sound Neurological: alert - Procedures Procedures: Procedures Procedure Code Date RESPIRATORY VENTILATION, GREATER THAN 96 CONSECUTIVE HOURS [id number] 05/27/18 Internal Medicine Assmt/Plan - Assessment Assessment: 1. ACUTE RESPIRATORY FAILURE--IMPROVED 2. BILATERAL PNEUMONIA 3. ASTHMA EXACERBATION 4. HYPERTENSION - Plan Plan: CONT WITH CURRENT TELE SUPPORTIVE CARE AND MGT CONT WITH IV ABXS, IV/INHALED STEROIDS CONT WITH PULM TOILET, O2 SUPPORT ADVANCE DIET TOLERATED Nutritional Asmnt/Malnutr-PDOC - Dietary Evaluation Malnutrition Findings (Please click <Entered> for more info): Nutritional Asmnt/Malnutrition Start: 05/28/18 14: 15 Text: Status: Complete Freq: Protocol: Document 05/28/18 14:15 LCHENG (Rec: 05/28/18 14:37 [email or web address] [email or web address]) Nutritional Asmnt/Malnutrition Patient General Information Nutritional Screening High Risk Diagnosis respiratory arrest Pertinent Medical Hx/Surgical Hx asthma/COPD Subjective Information Pt from home admitted for respiratory arrest. Pt seen intubated to vent at time of visit. Pt is on propofol noted d/t increasing restlessness per RN note. Glucose 254 at admission noted, trending down to 168 today. Current Diet Order/ Nutrition Support no diet order Pertinent Medications D5-0.45ns, protonix, propofol (55mcg/kg/min) Pertinent Labs 05/28 Na 134, Cr 1.5, glucose 168 05/27 Na 133, Glucose 254 Nutritional Hx/Data Height 1.78 m Height (Calculated Centimeters) 177.8 Current Weight (lbs) 116.12 kg Weight (Calculated Kilograms) 116.1 Weight (Calculated Grams) 623924.6 [place] Body Weight 150 Body Mass Index (BMI) 36.7 Weight Status Obese GI Symptoms GI Symptoms None Last BM not indicated Skin Integrity/Comment: intact Current %PO Negligible < 25% Estimated Nutritional Goals BEE in Kcals: Adj wt of IBW Calories/Kcals/Kg 25-30 adj wt 80kg Kcals Calculated 5860-8001 Protein: Adj wt of IBW Protein g/k Protein Calculated 80 Fluid: ml 1999-2400ml (1ml/kcal) Nutritional Problem 1. Problem Problem inadequate energy intake Etiology pt intubated on vent secondary to respiratory arrest Signs/Symptoms: Pt on NPO status Intervention/Recommendation Comments 1. Monitor NPO status. Will consider alternative nutrition route if pt not able to start oral diet. 2. Monitor wt, labs and skin integrity 3. F/U as high risk in 2-3 days Expected Outcomes/Goals Expected Outcomes/Goals 1. Pt to meet at least 75% of nutritinal needs via oral diet or nutrition support 2. Wt stability, skin to remain intact, labs to approach WNL.
[2018-06-03] MEDS: Azithromycin 500 MG in Sodium Chloride 0.9% 250 ML IV SCH (15:08)
--- NOTE | 2018-06-03 16:28 | Progress Notes ---
DATE: 06/02/2018 PULMONARY PROGRESS NOTE SUBJECTIVE: The patient appears to be doing okay, comfortable, awake, alert, eating a mechanical soft diet. He is on 3 liters oxygen, saturation 91-92%, feeling much better. OBJECTIVE: CHEST: Good breath sounds, decreased wheezing and rhonchi. HEART: Regular rate and rhythm. ABDOMEN: Soft. EXTREMITIES: No edema. ASSESSMENT: 1. Respiratory failure. 2. Pneumonia. 3. Dysphagia. 4. Asthma exacerbation. PLAN: 1. Continue antibiotics. 2. Nebulizer. 3. Pulmonary toilet and supportive care and followup chest x-ray and continue oxygen titration as tolerated. Discussed with the patient in detail. JOB# [id number]
[2018-06-03] MEDS ORDERED: methylPREDNISolone SS 40 mg Vial IVP SCH (21:00)
[2018-06-03] MEDS: methylPREDNISolone SS 40 mg Vial IVP SCH (21:52)
[2018-06-04] MEDS: Albuterol/Ipratropium Neb 3 ML AERS HHN SCH ×6 (02:45→22:05)
[2018-06-04] MEDS: Budesonide 0.5 Mg/2 mL Ud HHN SCH ×2 (07:30→20:03)
[2018-06-04] MEDS: methylPREDNISolone SS 40 mg Vial IVP SCH ×2 (08:16→20:27)
--- NOTE | 2018-06-04 09:14 | Internal Medicine Prog Note ---
Internal Medicine Subjective - Subjective Patient seen and examined:: with staff Patient is:: awake (comfortable), verbal, agitated Per staff patient has:: agitated, combative, confused, refusing labs Internal Medicine Objective - Results Result Diagrams: 06/03/18 08:00 06/03/18 08:00 Recent Labs: Laboratory Last Values WBC 22.4 Th/cmm (4.8-10.8) H* 06/03/18 08:00 RBC 4.66 Mil/cmm (3.80-5.10) 06/03/18 08:00 Hgb 13.3 gm/dL (12-16) 06/03/18 08:00 Hct 40.1 % (41.0-60) L 06/03/18 08:00 MCV 86.1 fl (81-100) 06/03/18 08:00 MCH 28.6 pg (27.0-31.0) 06/03/18 08:00 MCHC Differential 33.2 pg (28.0-36.0) 06/03/18 08:00 RDW 14.0 % (11.5-20.0) 06/03/18 08:00 Plt Count 285 Th/cmm (150-400) 06/03/18 08:00 MPV 8.3 fl 06/03/18 08:00 Add Manual Diff YES 06/03/18 08:00 Band Neutrophils % 2 % (0-10) 06/03/18 08:00 Neutrophils (Manual) 81 % (40-80) H 06/03/18 08:00 Lymphocytes 6 % (20-50) L 06/03/18 08:00 Monocytes 11 % (2-10) H 06/03/18 08:00 Eosinophils 0 % (0-5) 06/02/18 07:15 Basophils 0 % (0-3) 06/02/18 07:15 Atypical Lymphocytes 7 % 05/27/18 12:10 Platelet Estimate ADEQUATE (NORMAL) 06/03/18 08:00 Specimen Source ARTERIAL 06/01/18 12:00 Sample Site Right Radial 06/01/18 12:00 pH 7.38 (7.35-7.45) 06/01/18 12:00 pCO2 42.2 mmHg (35.0-45.0) 06/01/18 12:00 pO2 59.8 mmHg (80.0-100.0) L 06/01/18 12:00 HCO3 24.5 mEq/L (20.0-26.0) 06/01/18 12:00 Base Excess -0.6 mEq/L (-3.0-3.0) 06/01/18 12:00 O2 Saturation 90.0 % (92.0-100.0) L 06/01/18 12:00 Obi Test Y 06/01/18 12:00 Vent Rate N/A 06/01/18 12:00 Inspired O2 60 06/01/18 12:00 Tidal Volume N/A 06/01/18 12:00 PEEP N/A 06/01/18 12:00 Pressure (ins/psv/peep) N/A 06/01/18 12:00 Critical Value DRAMOS 06/01/18 12:00 Sodium 140 mEq/L (136-145) 06/03/18 08:00 Potassium 4.6 mEq/L (3.5-5.1) 06/03/18 08:00 Chloride 107 mEq/L (98-107) 06/03/18 08:00 Carbon Dioxide 22.7 mEq/L (21.0-31.0) 06/03/18 08:00 Anion Gap 14.9 (7.0-16.0) 06/03/18 08:00 BUN 37 mg/dL (7-25) H 06/03/18 08:00 Creatinine 0.7 mg/dL (0.6-1.2) 06/03/18 08:00 Est GFR ( Amer) > 60.0 ml/min (>90) 06/03/18 08:00 Est GFR (Non-Af Amer) > 60.0 ml/min 06/03/18 08:00 BUN/Creatinine Ratio 52.9 06/03/18 08:00 Glucose 121 mg/dL (70-105) H 06/03/18 08:00 Whole Bld Lactic Acid 2.34 mmol/L (0.60-1.99) H* 05/28/18 06:05 Calcium 8.7 mg/dL (8.6-10.3) 06/03/18 08:00 Magnesium 2.5 mg/dL (1.9-2.7) 06/01/18 04:10 Total Bilirubin 0.7 mg/dL (0.3-1.0) 05/31/18 04:15 AST 53 U/L (13-39) H 05/31/18 04:15 ALT 63 U/L (7-52) H 05/31/18 04:15 Alkaline Phosphatase 53 U/L (34-104) 05/31/18 04:15 B-Natriuretic Peptide 32.9 pg/mL (5.0-100.0) 06/02/18 07:15 Total Protein 6.1 gm/dL (6.0-8.3) 05/31/18 04:15 Albumin 3.5 gm/dL (3.7-5.3) L 05/31/18 04:15 Globulin 2.6 gm/dL 05/31/18 04:15 Albumin/Globulin Ratio 1.4 (1.0-1.8) 05/31/18 04:15 Serum , Qual NEGATIVE (NEGATIVE) 05/27/18 14:10 Urine Source [place] 05/27/18 20:15 Urine Color PINK 05/27/18 20:15 Urine Clarity HAZY (CLEAR) 05/27/18 20:15 Urine pH 5.5 (4.6 - 8.0) 05/27/18 20:15 Ur Specific [place] 1.015 (1.005-1.030) 05/27/18 20:15 Urine Protein TRACE mg/dL (NEGATIVE) 05/27/18 20:15 Urine Glucose (UA) NEGATIVE mg/dL (NEGATIVE) 05/27/18 20:15 Urine Ketones NEGATIVE mg/dL (NEGATIVE) 05/27/18 20:15 Urine Blood LARGE (NEGATIVE) H 05/27/18 20:15 Urine Nitrate NEGATIVE (NEGATIVE) 05/27/18 20:15 Urine Bilirubin NEGATIVE (NEGATIVE) 05/27/18 20:15 Urine Urobilinogen 0.2 E.U./dL (0.2 - 1.0) 05/27/18 20:15 Ur Leukocyte Esterase TRACE (NEGATIVE) H 05/27/18 20:15 Urine RBC 50-100 /hpf (0-5) H 05/27/18 20:15 Urine WBC 2-5 /hpf (0-5) 05/27/18 20:15 Ur Epithelial Cells RARE /lpf (FEW) 05/27/18 20:15 Urine Bacteria OCCASIONAL /hpf (NONE SEEN) 05/27/18 20:15 Fluid Glucose 132.0 mg/dL 05/30/18 15:35 Vancomycin Trough 13.4 ug/mL (5-10) H 06/03/18 08:00 Urine Opiates Screen NEGATIVE (NEGATIVE) 05/27/18 20:15 Urine Methadone Screen NEGATIVE (NEGATIVE) 05/27/18 20:15 Ur Barbiturates Screen NEGATIVE (NEGATIVE) 05/27/18 20:15 Ur Tricyclics Screen NEGATIVE (NEGATIVE) 05/27/18 20:15 Ur Phencyclidine Scrn NEGATIVE (NEGATIVE) 05/27/18 20:15 Amphetamines Screen NEGATIVE (NEGATIVE) 05/27/18 20:15 U Methamphetamines Scrn NEGATIVE (NEGATIVE) 05/27/18 20:15 U Benzodiazepines Scrn POSITIVE (NEGATIVE) H 05/27/18 20:15 U Cocaine Metab Screen NEGATIVE (NEGATIVE) 05/27/18 20:15 U Cannabinoids Screen NEGATIVE (NEGATIVE) 05/27/18 20:15 Influenza A (Rapid) NEG FOR INF A 05/27/18 20:25 Influenza B (Rapid) NEG FOR INF B 05/27/18 20:25 - Physical Exam Vitals and I&O: Vital Signs Temp 97.5 F 06/04/18 00:00 Pulse 87 06/04/18 08:17 Resp 18 06/04/18 07:30 BP 145/103 06/04/18 08:17 Pulse Ox 93 06/04/18 07:30 Intake & Output 06/03/18 06/04/18 06/04/18 18:59 06:59 18:59 Intake Total 350 800 100 Balance 350 800 100 Weight (lbs) 111.13 kg Intake: Intake, IV Amount 350 350 100 Azithromycin 500 mg In 250 Sodium Chloride 0.9% 250 ml @ 250 mls/hr IV Q24HR [facility] Rx#:[id number] Piperacillin Sodium/ 100 100 100 Tazobact 4.5 gm In Sodium Chloride 0.9% 100 ml @ 100 mls/hr IV Q8H [facility] Rx# :[id number] Vancomycin HCl 1.25 gm In 250 Sodium Chloride 0.9% 250 ml @ 165 mls/hr IV Q8HR@ 0100,0900,1700 [facility] Rx#: [id number] Oral 450 Other: # Voids 3 # Bowel Movements 1 Stool Characteristics Soft Soft Soft Formed Formed Formed Weight Source Bedscale Active Medications: Current Medications Acetylcysteine (Mucomyst 20%) 2 ml HHN Q4HRT [facility] Stop: 07/28/18 14:59 Last Admin: 06/04/18 02:45 Dose: 2 ml Albuterol/Ipratropium (Duoneb Neb) 3 ml HHN Q4HRT [facility] Stop: 07/26/18 15:14 Last Admin: 06/04/18 07:30 Dose: Not Given Benazepril HCl (Lotensin) 10 mg PO DAILY [facility] Stop: 08/01/18 09:29 Last Admin: 06/04/18 08:17 Dose: 10 mg Budesonide (Pulmicort) 0.5 mg HHN BIDRT [facility] Stop: 07/26/18 18:59 Last Admin: 06/04/18 07:30 Dose: Not Given Azithromycin 500 mg/ Sodium (Chloride) 250 mls @ 250 mls/hr IV Q24HR [facility] Stop: 07/30/18 14:59 Last Infusion: 06/03/18 16:10 Dose: Infused Vancomycin HCl 1.25 gm/ Sodium (Chloride) 250 mls @ 165 mls/hr IV Q8HR@0100, 0900,1700 [facility] Stop: 08/02/18 16:59 Last Admin: 06/04/18 01:00 Dose: 165 mls/hr Piperacillin Sod/Tazobactam (Sod 4.5 gm/ Sodium Chloride) 100 mls @ 100 mls/hr IV Q8H [facility] Stop: 08/02/18 14:59 Last Infusion: 06/04/18 08:34 Dose: Infused Lorazepam (Ativan) 2 mg IVP Q4HR PRN; Protocol PRN Reason: Agitation Stop: 08/03/18 08:53 Methylprednisolone Sodium Succinate (Solu-Medrol) 40 mg IVP Q12HR [facility] Stop: 08/02/18 20:59 Last Admin: 06/04/18 08:16 Dose: 40 mg Miscellaneous (Vancomycin Iv Per Pharmacy) 1 [facility] PRN PRN PRN Reason: PROTOCOL Stop: 07/28/18 14:01 Miscellaneous (Zosyn Iv Per Pharmacy) 1 [facility] PRN PRN PRN Reason: PROTOCOL Stop: 07/28/18 14:04 Morphine Sulfate (Morphine) 1 mg IVP Q4HR PRN PRN Reason: Pain (Moderate) Stop: 07/29/18 10:20 Last Admin: 05/31/18 22:39 Dose: 1 mg Pantoprazole Sodium (Protonix) 40 mg IVP DAILY [facility] Stop: 07/26/18 20:59 Last Admin: 06/04/18 08:16 Dose: 40 mg General: weak HEENT: NC/AT, PERRLA Neck: Supple, No LAD Lungs: ronchi, other (increased air-lung enty) Cardiovascular: RRR, Normal S1, Normal S2 Abdomen: non-tender, positive bowel sound Neurological: alert - Procedures Procedures: Procedures Procedure Code Date RESPIRATORY VENTILATION, GREATER THAN 96 CONSECUTIVE HOURS [id number] 05/27/18 Internal Medicine Assmt/Plan - Assessment Assessment: 1. ACUTE RESPIRATORY FAILURE--IMPROVED 2. BILATERAL PNEUMONIA 3. ASTHMA EXACERBATION 4. HYPERTENSION 5. ACUTE PSYCHOSIS 6. HX OF UNKNOWN PSYCH D/O (POSSIBLE BIPOLAR DISEASE) - Plan Plan: CONT WITH CURRENT TELE SUPPORTIVE CARE AND MGT CONT WITH IV ABXS, IV/INHALED STEROIDS CONT WITH PULM TOILET, O2 SUPPORT PSYCH/PSYCHOLOGY EVAL ATIVAN IV PRN Nutritional Asmnt/Malnutr-PDOC - Dietary Evaluation Malnutrition Findings (Please click <Entered> for more info): Nutritional Asmnt/Malnutrition Start: 05/28/18 14: 15 Text: Status: Complete Freq: Protocol: Document 05/28/18 14:15 LCHENG (Rec: 05/28/18 14:37 LCHENG [email or web address]) Nutritional Asmnt/Malnutrition Patient General Information Nutritional Screening High Risk Diagnosis respiratory arrest Pertinent Medical Hx/Surgical Hx asthma/COPD Subjective Information Pt from home admitted for respiratory arrest. Pt seen intubated to vent at time of visit. Pt is on propofol noted d/t increasing restlessness per RN note. Glucose 254 at admission noted, trending down to 168 today. Current Diet Order/ Nutrition Support no diet order Pertinent Medications D5-0.45ns, protonix, propofol (55mcg/kg/min) Pertinent Labs 05/28 Na 134, Cr 1.5, glucose 168 05/27 Na 133, Glucose 254 Nutritional Hx/Data Height 1.78 m Height (Calculated Centimeters) 177.8 Current Weight (lbs) 116.12 kg Weight (Calculated Kilograms) 116.1 Weight (Calculated Grams) 615788.6 [place] Body Weight 150 Body Mass Index (BMI) 36.7 Weight Status Obese GI Symptoms GI Symptoms None Last BM not indicated Skin Integrity/Comment: intact Current %PO Negligible < 25% Estimated Nutritional Goals BEE in Kcals: Adj wt of IBW Calories/Kcals/Kg 25-30 adj wt 80kg Kcals Calculated 9272-9259 Protein: Adj wt of IBW Protein g/k Protein Calculated 80 Fluid: ml 2000-2400ml (1ml/kcal) Nutritional Problem 1. Problem Problem inadequate energy intake Etiology pt intubated on vent secondary to respiratory arrest Signs/Symptoms: Pt on NPO status Intervention/Recommendation Comments 1. Monitor NPO status. Will consider alternative nutrition route if pt not able to start oral diet. 2. Monitor wt, labs and skin integrity 3. F/U as high risk in 2-3 days Expected Outcomes/Goals Expected Outcomes/Goals 1. Pt to meet at least 75% of nutritinal needs via oral diet or nutrition support 2. Wt stability, skin to remain intact, labs to approach WNL.
[2018-06-04] MEDS ORDERED: Haloperidol Lactate 5 mg/mL 1mL Vial IVP ONE (13:02)
--- NOTE | 2018-06-04 14:17 | Infectious Disease Prog Note ---
Infectious Disease Subjective - Review of Systems Service Date: 06/04/18 Subjective: No fever. Infectious Disease Objective - Results Result Diagrams: 06/03/18 08:00 06/03/18 08:00 Recent Labs: Laboratory Last Values WBC 22.4 Th/cmm (4.8-10.8) H* 06/03/18 08:00 RBC 4.66 Mil/cmm (3.80-5.10) 06/03/18 08:00 Hgb 13.3 gm/dL (12-16) 06/03/18 08:00 Hct 40.1 % (41.0-60) L 06/03/18 08:00 MCV 86.1 fl (81-100) 06/03/18 08:00 MCH 28.6 pg (27.0-31.0) 06/03/18 08:00 MCHC Differential 33.2 pg (28.0-36.0) 06/03/18 08:00 RDW 14.0 % (11.5-20.0) 06/03/18 08:00 Plt Count 285 Th/cmm (150-400) 06/03/18 08:00 MPV 8.3 fl 06/03/18 08:00 Add Manual Diff YES 06/03/18 08:00 Band Neutrophils % 2 % (0-10) 06/03/18 08:00 Neutrophils (Manual) 81 % (40-80) H 06/03/18 08:00 Lymphocytes 6 % (20-50) L 06/03/18 08:00 Monocytes 11 % (2-10) H 06/03/18 08:00 Eosinophils 0 % (0-5) 06/02/18 07:15 Basophils 0 % (0-3) 06/02/18 07:15 Atypical Lymphocytes 7 % 05/27/18 12:10 Platelet Estimate ADEQUATE (NORMAL) 06/03/18 08:00 Specimen Source ARTERIAL 06/01/18 12:00 Sample Site Right Radial 06/01/18 12:00 pH 7.38 (7.35-7.45) 06/01/18 12:00 pCO2 42.2 mmHg (35.0-45.0) 06/01/18 12:00 pO2 59.8 mmHg (80.0-100.0) L 06/01/18 12:00 HCO3 24.5 mEq/L (20.0-26.0) 06/01/18 12:00 Base Excess -0.6 mEq/L (-3.0-3.0) 06/01/18 12:00 O2 Saturation 90.0 % (92.0-100.0) L 06/01/18 12:00 Obi Test Y 06/01/18 12:00 Vent Rate N/A 06/01/18 12:00 Inspired O2 60 06/01/18 12:00 Tidal Volume N/A 06/01/18 12:00 PEEP N/A 06/01/18 12:00 Pressure (ins/psv/peep) N/A 06/01/18 12:00 Critical Value DRAMOS 06/01/18 12:00 Sodium 140 mEq/L (136-145) 06/03/18 08:00 Potassium 4.6 mEq/L (3.5-5.1) 06/03/18 08:00 Chloride 107 mEq/L (98-107) 06/03/18 08:00 Carbon Dioxide 22.7 mEq/L (21.0-31.0) 06/03/18 08:00 Anion Gap 14.9 (7.0-16.0) 06/03/18 08:00 BUN 37 mg/dL (7-25) H 06/03/18 08:00 Creatinine 0.7 mg/dL (0.6-1.2) 06/03/18 08:00 Est GFR ( Amer) > 60.0 ml/min (>90) 06/03/18 08:00 Est GFR (Non-Af Amer) > 60.0 ml/min 06/03/18 08:00 BUN/Creatinine Ratio 52.9 06/03/18 08:00 Glucose 121 mg/dL (70-105) H 06/03/18 08:00 Whole Bld Lactic Acid 2.34 mmol/L (0.60-1.99) H* 05/28/18 06:05 Calcium 8.7 mg/dL (8.6-10.3) 06/03/18 08:00 Magnesium 2.5 mg/dL (1.9-2.7) 06/01/18 04:10 Total Bilirubin 0.7 mg/dL (0.3-1.0) 05/31/18 04:15 AST 53 U/L (13-39) H 05/31/18 04:15 ALT 63 U/L (7-52) H 05/31/18 04:15 Alkaline Phosphatase 53 U/L (34-104) 05/31/18 04:15 B-Natriuretic Peptide 32.9 pg/mL (5.0-100.0) 06/02/18 07:15 Total Protein 6.1 gm/dL (6.0-8.3) 05/31/18 04:15 Albumin 3.5 gm/dL (3.7-5.3) L 05/31/18 04:15 Globulin 2.6 gm/dL 05/31/18 04:15 Albumin/Globulin Ratio 1.4 (1.0-1.8) 05/31/18 04:15 Serum , Qual NEGATIVE (NEGATIVE) 05/27/18 14:10 Urine Source [place] 05/27/18 20:15 Urine Color PINK 05/27/18 20:15 Urine Clarity HAZY (CLEAR) 05/27/18 20:15 Urine pH 5.5 (4.6 - 8.0) 05/27/18 20:15 Ur Specific [place] 1.015 (1.005-1.030) 05/27/18 20:15 Urine Protein TRACE mg/dL (NEGATIVE) 05/27/18 20:15 Urine Glucose (UA) NEGATIVE mg/dL (NEGATIVE) 05/27/18 20:15 Urine Ketones NEGATIVE mg/dL (NEGATIVE) 05/27/18 20:15 Urine Blood LARGE (NEGATIVE) H 05/27/18 20:15 Urine Nitrate NEGATIVE (NEGATIVE) 05/27/18 20:15 Urine Bilirubin NEGATIVE (NEGATIVE) 05/27/18 20:15 Urine Urobilinogen 0.2 E.U./dL (0.2 - 1.0) 05/27/18 20:15 Ur Leukocyte Esterase TRACE (NEGATIVE) H 05/27/18 20:15 Urine RBC 50-100 /hpf (0-5) H 05/27/18 20:15 Urine WBC 2-5 /hpf (0-5) 05/27/18 20:15 Ur Epithelial Cells RARE /lpf (FEW) 05/27/18 20:15 Urine Bacteria OCCASIONAL /hpf (NONE SEEN) 05/27/18 20:15 Fluid Glucose 132.0 mg/dL 05/30/18 15:35 Vancomycin Trough 13.4 ug/mL (5-10) H 06/03/18 08:00 Urine Opiates Screen NEGATIVE (NEGATIVE) 05/27/18 20:15 Urine Methadone Screen NEGATIVE (NEGATIVE) 05/27/18 20:15 Ur Barbiturates Screen NEGATIVE (NEGATIVE) 05/27/18 20:15 Ur Tricyclics Screen NEGATIVE (NEGATIVE) 05/27/18 20:15 Ur Phencyclidine Scrn NEGATIVE (NEGATIVE) 05/27/18 20:15 Amphetamines Screen NEGATIVE (NEGATIVE) 05/27/18 20:15 U Methamphetamines Scrn NEGATIVE (NEGATIVE) 05/27/18 20:15 U Benzodiazepines Scrn POSITIVE (NEGATIVE) H 05/27/18 20:15 U Cocaine Metab Screen NEGATIVE (NEGATIVE) 05/27/18 20:15 U Cannabinoids Screen NEGATIVE (NEGATIVE) 05/27/18 20:15 Influenza A (Rapid) NEG FOR INF A 05/27/18 20:25 Influenza B (Rapid) NEG FOR INF B 05/27/18 20:25 L.pneumophila Antigen Negative (Negative) 06/01/18 06:30 - Physical Exam Vitals and I&O: Vital Signs Temp 97.9 F 06/04/18 12:00 Pulse 95 06/04/18 12:00 Resp 18 06/04/18 14:11 BP 129/83 06/04/18 12:00 Pulse Ox 95 06/04/18 12:00 Intake & Output 06/03/18 06/04/18 06/04/18 18:59 06:59 18:59 Intake Total 350 1050 350 Balance 350 1050 350 Weight (lbs) 111.13 kg Intake: Intake, IV Amount 350 600 350 Azithromycin 500 mg In 250 Sodium Chloride 0.9% 250 ml @ 250 mls/hr IV Q24HR [facility] Rx#:[id number] Piperacillin Sodium/ 100 100 100 Tazobact 4.5 gm In Sodium Chloride 0.9% 100 ml @ 100 mls/hr IV Q8H [facility] Rx# :[id number] Vancomycin HCl 1.25 gm In 500 250 Sodium Chloride 0.9% 250 ml @ 165 mls/hr IV Q8HR@ 0100,0900,1700 [facility] Rx#: [id number] Oral 450 Other: # Voids 3 # Bowel Movements 1 Stool Characteristics Soft Soft Soft Formed Formed Formed Weight Source Bedscale Active Medications: Current Medications Acetylcysteine (Mucomyst 20%) 2 ml HHN Q4HRT [facility] Stop: 07/28/18 14:59 Last Admin: 06/04/18 14:11 Dose: Not Given Albuterol/Ipratropium (Duoneb Neb) 3 ml HHN Q4HRT [facility] Stop: 07/26/18 15:14 Last Admin: 06/04/18 14:11 Dose: Not Given Benazepril HCl (Lotensin) 10 mg PO DAILY [facility] Stop: 08/01/18 09:29 Last Admin: 06/04/18 08:17 Dose: 10 mg Budesonide (Pulmicort) 0.5 mg HHN BIDRT [facility] Stop: 07/26/18 18:59 Last Admin: 06/04/18 07:30 Dose: Not Given Diphenhydramine HCl (Benadryl 50 Mg/Ml) 50 mg IVP Q4HR PRN PRN Reason: Agitation Stop: 08/03/18 13:00 Last Admin: 06/04/18 13:09 Dose: 50 mg Azithromycin 500 mg/ Sodium (Chloride) 250 mls @ 250 mls/hr IV Q24HR [facility] Stop: 07/30/18 14:59 Last Infusion: 06/03/18 16:10 Dose: Infused Vancomycin HCl 1.25 gm/ Sodium (Chloride) 250 mls @ 165 mls/hr IV Q8HR@0100, 0900,1700 [facility] Stop: 08/02/18 16:59 Last Infusion: 06/04/18 11:04 Dose: Infused Piperacillin Sod/Tazobactam (Sod 4.5 gm/ Sodium Chloride) 100 mls @ 100 mls/hr IV Q8H [facility] Stop: 08/02/18 14:59 Last Infusion: 06/04/18 08:34 Dose: Infused Lorazepam (Ativan) 2 mg IVP Q4HR PRN; Protocol PRN Reason: Agitation Stop: 08/03/18 08:53 Last Admin: 06/04/18 13:09 Dose: 2 mg Methylprednisolone Sodium Succinate (Solu-Medrol) 40 mg IVP Q12HR [facility] Stop: 08/02/18 20:59 Last Admin: 06/04/18 08:16 Dose: 40 mg Miscellaneous (Vancomycin Iv Per Pharmacy) 1 ea MC PRN PRN PRN Reason: PROTOCOL Stop: 07/28/18 14:01 Miscellaneous (Zosyn Iv Per Pharmacy) 1 ea PRN PRN PRN Reason: PROTOCOL Stop: 07/28/18 14:04 Morphine Sulfate (Morphine) 1 mg IVP Q4HR PRN PRN Reason: Pain (Moderate) Stop: 07/29/18 10:20 Last Admin: 05/31/18 22:39 Dose: 1 mg Pantoprazole Sodium (Protonix) 40 mg IVP DAILY [facility] Stop: 07/26/18 20:59 Last Admin: 06/04/18 08:16 Dose: 40 mg General: no acute distress, well developed, well nourished HEENT: atraumatic, normocephalic Neck: supple, no thyromegaly Cardiovascular: S1S2, regular Lungs: clear to auscultation bilaterally, clear to percussion, crackles Abdomen: soft, bowel sounds, no tender, no distended, no mass, no rebound Extremities: no clubbing Neurological: awake, alert, oriented Skin: intact - Procedures Procedures: Procedures Procedure Code Date RESPIRATORY VENTILATION, GREATER THAN 96 CONSECUTIVE HOURS [id number] 05/27/18 Infectious Disease Assmt/Plan - Assessment Assessment: 1. Pneumonia. 2. Respiratory failure. 3. Sepsis. 4. Asthma and chronic obstructive pulmonary disease. 5. May have interstitial lung disease. 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 8. Leukocytosis, 2/2 steroids. - Plan Plan: 1. Continue vancomycin, and Zosyn and dc Zithromax at this time. 2. Continue same treatment. Nutritional Asmnt/Malnutr-PDOC - Dietary Evaluation Malnutrition Findings (Please click <Entered> for more info): Nutritional Asmnt/Malnutrition Start: 05/28/18 14: 15 Text: Status: Complete Freq: Protocol: Document 05/28/18 14:15 [id number] (Rec: 05/28/18 14:37 FRANCISCO JAVIER [id number]) Nutritional Asmnt/Malnutrition Patient General Information Nutritional Screening High Risk Diagnosis respiratory arrest Pertinent Medical Hx/Surgical Hx asthma/COPD Subjective Information Pt from home admitted for respiratory arrest. Pt seen intubated to vent at time of visit. Pt is on propofol noted d/t increasing restlessness per RN note. Glucose 254 at admission noted, trending down to 168 today. Current Diet Order/ Nutrition Support no diet order Pertinent Medications D5-0.45ns, protonix, propofol (55mcg/kg/min) Pertinent Labs 05/28 Na 134, Cr 1.5, glucose 168 05/27 Na 133, Glucose 254 Nutritional Hx/Data Height 1.78 m Height (Calculated Centimeters) 177.8 Current Weight (lbs) 116.12 kg Weight (Calculated Kilograms) 116.1 Weight (Calculated Grams) 079999.6 Ava Body Weight 150 Body Mass Index (BMI) 36.7 Weight Status Obese GI Symptoms GI Symptoms None Last BM not indicated Skin Integrity/Comment: intact Current %PO Negligible < 25% Estimated Nutritional Goals BEE in Kcals: Adj wt of IBW Calories/Kcals/Kg 25-30 adj wt 80kg Kcals Calculated 6594-1731 Protein: Adj wt of IBW Protein g/k Protein Calculated 80 Fluid: ml 2000-2400ml (1ml/kcal) Nutritional Problem 1. Problem Problem inadequate energy intake Etiology pt intubated on vent secondary to respiratory arrest Signs/Symptoms: Pt on NPO status Intervention/Recommendation Comments 1. Monitor NPO status. Will consider alternative nutrition route if pt not able to start oral diet. 2. Monitor wt, labs and skin integrity 3. F/U as high risk in 2-3 days Expected Outcomes/Goals Expected Outcomes/Goals 1. Pt to meet at least 75% of nutritinal needs via oral diet or nutrition support 2. Wt stability, skin to remain intact, labs to approach WNL.
[2018-06-04] MEDS: Azithromycin 500 MG in Sodium Chloride 0.9% 250 ML IV SCH (15:35)
--- NOTE | 2018-06-04 17:53 | Progress Notes ---
DATE: 06/03/2018 PULMONARY PROGRESS NOTE SUBJECTIVE: The patient appears to be doing okay, talkative. OBJECTIVE: GENERAL: Awake, no distress, no shortness of breath. VITAL SIGNS: Temperature 98.4, pulse 91, respirations 20, blood pressure 144/94, saturation is 95%. CHEST: Good breath sounds. No wheezing or rhonchi. HEART: Regular. ABDOMEN: Soft. EXTREMITIES: No edema. LABORATORY DATA: WBC 22.4, hemoglobin 13.3, hematocrit 40.1, platelets 285. Sodium 140, potassium 4.6, BUN 37, creatinine 0.7. IMPRESSION: 1. Respiratory failure. 2. Extensive pneumonia. 3. obesity. 4. Asthma. PLAN: 1. Continue on nebulizer treatment. 2. Decrease steroids, probably causing the leukocytosis. 3. Follow up chest x-ray and supportive care. JOB# [id number] MTDD
--- NOTE | 2018-06-04 20:29 | Progress Notes ---
DATE: 06/04/2018 PSYCHIATRIC NOTE SUBJECTIVE: The patient is reported to have been screaming and yelling and out of control and a call was made by the nurse requesting medications to calm the patient down. The patient has been given the 5 mg of the haloperidol. The patient is also reported to have received a dose of the Ativan, but even that one has not been able to calm her down and the patient has been given a dose of haloperidol. The patient has been resting at that time. When I tried to interview the patient, the patient has been drowsy and is not able to provide much of information. No major behavioral problems are noted after that one. JOB# [id number]
[2018-06-05] MEDS: Albuterol/Ipratropium Neb 3 ML AERS HHN SCH ×7 (02:00→23:52)
[2018-06-05 06:59] LABS: HEMATOCRIT 38.8 % (41.0-60); MEAN CELL VOLUME 85.9 fl (81-100); MEAN CORPUSCULAR HEMOGLOBIN 28.7 pg (27.0-31.0); MEAN CORPUSCULAR HGB CONC 33.4 pg (28.0-36.0); PLATELET COUNT 283 Th/cmm (150-400); RED BLOOD COUNT 4.52 Mil/cmm (3.80-5.10); RED CELL DISTRIBUTION WIDTH 14.1 % (11.5-20.0)
[2018-06-05 07:02] LABS: WHITE BLOOD COUNT 21.7 Th/cmm (4.8-10.8)
[2018-06-05] MEDS: Budesonide 0.5 Mg/2 mL Ud HHN SCH ×2 (07:11→18:56)
[2018-06-05 07:14] LABS: ANION GAP 12.9 (7.0-16.0); BUN - UREA NITROGEN 39 mg/dL (7-25); CALCIUM SERUM 8.7 mg/dL (8.6-10.3); CARBON DIOXIDE 25.1 mEq/L (21.0-31.0); CHLORIDE 108 mEq/L (98-107); CREATININE - SERUM 0.9 mg/dL (0.6-1.2); GFR AFRICAN-AMERICAN > 60.0 ml/min (>90); GFR NON AFRICAN-AMERICAN > 60.0 ml/min; GLUCOSE 110 mg/dL (70-105); MAGNESIUM 2.3 mg/dL (1.9-2.7); SODIUM SERUM 142 mEq/L (136-145)
[2018-06-05 08:54] LABS: BAND NEUTROPHILE 0 % (0-10); BASOPHIL 0 % (0-3); EOSINOPHIL 0 % (0-5); LYMPHOCYTE 9 % (20-50); METAMYELOCYTE 1 % (0-0); MONOCYTE 5 % (2-10); MYELOCYTE 5 %; NEUTROPHILS 80 % (40-80)
[2018-06-05] MEDS: methylPREDNISolone SS 40 mg Vial IVP SCH (09:28)
--- NOTE | 2018-06-05 14:21 | General Progress Note ---
Subjective - Review of Systems Service Date: 06/05/18 Subjective: alert, talkative, periods of cough while talking Objective - Results Result Diagrams: 06/05/18 06:54 06/05/18 06:54 Recent Labs: Laboratory Last Values WBC 21.7 Th/cmm (4.8-10.8) H* 06/05/18 06:54 RBC 4.52 Mil/cmm (3.80-5.10) 06/05/18 06:54 Hgb 13.0 gm/dL (12-16) 06/05/18 06:54 Hct 38.8 % (41.0-60) L 06/05/18 06:54 MCV 85.9 fl (81-100) 06/05/18 06:54 MCH 28.7 pg (27.0-31.0) 06/05/18 06:54 MCHC Differential 33.4 pg (28.0-36.0) 06/05/18 06:54 RDW 14.1 % (11.5-20.0) 06/05/18 06:54 Plt Count 283 Th/cmm (150-400) 06/05/18 06:54 MPV 8.0 fl 06/05/18 06:54 Add Manual Diff YES 06/05/18 06:54 Band Neutrophils % 0 % (0-10) 06/05/18 06:54 Neutrophils (Manual) 80 % (40-80) 06/05/18 06:54 Lymphocytes 9 % (20-50) L 06/05/18 06:54 Monocytes 5 % (2-10) 06/05/18 06:54 Eosinophils 0 % (0-5) 06/05/18 06:54 Basophils 0 % (0-3) 06/05/18 06:54 Metamyelocytes 1 % (0-0) H 06/05/18 06:54 Myelocytes 5 % 06/05/18 06:54 Atypical Lymphocytes 7 % 05/27/18 12:10 Platelet Estimate ADEQUATE (NORMAL) 06/03/18 08:00 Smear Path Review Y 06/05/18 06:54 Specimen Source ARTERIAL 06/01/18 12:00 Sample Site Right Radial 06/01/18 12:00 pH 7.38 (7.35-7.45) 06/01/18 12:00 pCO2 42.2 mmHg (35.0-45.0) 06/01/18 12:00 pO2 59.8 mmHg (80.0-100.0) L 06/01/18 12:00 HCO3 24.5 mEq/L (20.0-26.0) 06/01/18 12:00 Base Excess -0.6 mEq/L (-3.0-3.0) 06/01/18 12:00 O2 Saturation 90.0 % (92.0-100.0) L 06/01/18 12:00 Obi Test Y 06/01/18 12:00 Vent Rate N/A 06/01/18 12:00 Inspired O2 60 06/01/18 12:00 Tidal Volume N/A 06/01/18 12:00 PEEP N/A 06/01/18 12:00 Pressure (ins/psv/peep) N/A 06/01/18 12:00 Critical Value DRAMOS 06/01/18 12:00 Sodium 142 mEq/L (136-145) 06/05/18 06:54 Potassium 4.0 mEq/L (3.5-5.1) 06/05/18 06:54 Chloride 108 mEq/L (98-107) H 06/05/18 06:54 Carbon Dioxide 25.1 mEq/L (21.0-31.0) 06/05/18 06:54 Anion Gap 12.9 (7.0-16.0) 06/05/18 06:54 BUN 39 mg/dL (7-25) H 06/05/18 06:54 Creatinine 0.9 mg/dL (0.6-1.2) 06/05/18 06:54 Est GFR ( Amer) > 60.0 ml/min (>90) 06/05/18 06:54 Est GFR (Non-Af Amer) > 60.0 ml/min 06/05/18 06:54 BUN/Creatinine Ratio 43.3 06/05/18 06:54 Glucose 110 mg/dL (70-105) H 06/05/18 06:54 Whole Bld Lactic Acid 2.34 mmol/L (0.60-1.99) H* 05/28/18 06:05 Calcium 8.7 mg/dL (8.6-10.3) 06/05/18 06:54 Magnesium 2.3 mg/dL (1.9-2.7) 06/05/18 06:54 Total Bilirubin 0.7 mg/dL (0.3-1.0) 05/31/18 04:15 AST 53 U/L (13-39) H 05/31/18 04:15 ALT 63 U/L (7-52) H 05/31/18 04:15 Alkaline Phosphatase 53 U/L (34-104) 05/31/18 04:15 B-Natriuretic Peptide 32.9 pg/mL (5.0-100.0) 06/02/18 07:15 Total Protein 6.1 gm/dL (6.0-8.3) 05/31/18 04:15 Albumin 3.5 gm/dL (3.7-5.3) L 05/31/18 04:15 Globulin 2.6 gm/dL 05/31/18 04:15 Albumin/Globulin Ratio 1.4 (1.0-1.8) 05/31/18 04:15 Serum , Qual NEGATIVE (NEGATIVE) 05/27/18 14:10 Urine Source [place] 05/27/18 20:15 Urine Color PINK 05/27/18 20:15 Urine Clarity HAZY (CLEAR) 05/27/18 20:15 Urine pH 5.5 (4.6 - 8.0) 05/27/18 20:15 Ur Specific [place] 1.015 (1.005-1.030) 05/27/18 20:15 Urine Protein TRACE mg/dL (NEGATIVE) 05/27/18 20:15 Urine Glucose (UA) NEGATIVE mg/dL (NEGATIVE) 05/27/18 20:15 Urine Ketones NEGATIVE mg/dL (NEGATIVE) 05/27/18 20:15 Urine Blood LARGE (NEGATIVE) H 05/27/18 20:15 Urine Nitrate NEGATIVE (NEGATIVE) 05/27/18 20:15 Urine Bilirubin NEGATIVE (NEGATIVE) 05/27/18 20:15 Urine Urobilinogen 0.2 E.U./dL (0.2 - 1.0) 05/27/18 20:15 Ur Leukocyte Esterase TRACE (NEGATIVE) H 05/27/18 20:15 Urine RBC 50-100 /hpf (0-5) H 05/27/18 20:15 Urine WBC 2-5 /hpf (0-5) 05/27/18 20:15 Ur Epithelial Cells RARE /lpf (FEW) 05/27/18 20:15 Urine Bacteria OCCASIONAL /hpf (NONE SEEN) 05/27/18 20:15 Fluid Glucose 132.0 mg/dL 05/30/18 15:35 Vancomycin Trough 17.8 ug/mL (5-10) H 06/05/18 06:54 Urine Opiates Screen NEGATIVE (NEGATIVE) 05/27/18 20:15 Urine Methadone Screen NEGATIVE (NEGATIVE) 05/27/18 20:15 Ur Barbiturates Screen NEGATIVE (NEGATIVE) 05/27/18 20:15 Ur Tricyclics Screen NEGATIVE (NEGATIVE) 05/27/18 20:15 Ur Phencyclidine Scrn NEGATIVE (NEGATIVE) 05/27/18 20:15 Amphetamines Screen NEGATIVE (NEGATIVE) 05/27/18 20:15 U Methamphetamines Scrn NEGATIVE (NEGATIVE) 05/27/18 20:15 U Benzodiazepines Scrn POSITIVE (NEGATIVE) H 05/27/18 20:15 U Cocaine Metab Screen NEGATIVE (NEGATIVE) 05/27/18 20:15 U Cannabinoids Screen NEGATIVE (NEGATIVE) 05/27/18 20:15 Influenza A (Rapid) NEG FOR INF A 05/27/18 20:25 Influenza B (Rapid) NEG FOR INF B 05/27/18 20:25 L.pneumophila Antigen Negative (Negative) 06/01/18 06:30 - Physical Exam Vitals and I&O: Vital Signs Temp 97.6 F 06/05/18 12:23 Pulse 87 06/05/18 12:23 Resp 20 06/05/18 12:23 BP 151/89 06/05/18 12:23 Pulse Ox 98 06/05/18 12:23 Intake & Output 06/04/18 06/05/18 06/05/18 18:59 06:59 18:59 Intake Total 700 840 Balance 700 840 Weight (lbs) 111.13 kg Intake: Intake, IV Amount 700 600 Azithromycin 500 mg In 250 Sodium Chloride 0.9% 250 ml @ 250 mls/hr IV Q24HR [facility] Rx#:[id number] Piperacillin Sodium/ 200 100 Tazobact 4.5 gm In Sodium Chloride 0.9% 100 ml @ 100 mls/hr IV Q8H [facility] Rx# :[id number] Vancomycin HCl 1.25 gm In 250 500 Sodium Chloride 0.9% 250 ml @ 165 mls/hr IV Q8HR@ 0100,0900,1700 [facility] Rx#: [id number] Oral 240 Other: Stool Characteristics Soft Soft Soft Formed Formed Formed Weight Source Bedscale Active Medications: Current Medications Acetylcysteine (Mucomyst 20%) 2 ml HHN Q4HRT [facility] Stop: 07/28/18 14:59 Last Admin: 06/05/18 14:14 Dose: Not Given Albuterol/Ipratropium (Duoneb Neb) 3 ml HHN Q4HRT [facility] Stop: 07/26/18 15:14 Last Admin: 06/05/18 14:15 Dose: Not Given Benazepril HCl (Lotensin) 10 mg PO DAILY [facility] Stop: 08/01/18 09:29 Last Admin: 06/05/18 09:28 Dose: 10 mg Budesonide (Pulmicort) 0.5 mg HHN BIDRT [facility] Stop: 07/26/18 18:59 Last Admin: 06/05/18 07:11 Dose: Not Given Diphenhydramine HCl (Benadryl 50 Mg/Ml) 50 mg IVP Q4HR PRN PRN Reason: Agitation Stop: 08/03/18 13:00 Last Admin: 06/04/18 23:36 Dose: 50 mg Azithromycin 500 mg/ Sodium (Chloride) 250 mls @ 250 mls/hr IV Q24HR [facility] Stop: 07/30/18 14:59 Last Infusion: 06/04/18 16:35 Dose: Infused Vancomycin HCl 1.25 gm/ Sodium (Chloride) 250 mls @ 165 mls/hr IV Q8HR@0100, 0900,1700 [facility] Stop: 08/02/18 16:59 Last Admin: 06/05/18 09:50 Dose: Not Given Piperacillin Sod/Tazobactam (Sod 4.5 gm/ Sodium Chloride) 100 mls @ 100 mls/hr IV Q8H [facility] Stop: 08/02/18 14:59 Last Admin: 06/05/18 06:54 Dose: 100 mls/hr Miscellaneous (Vancomycin Iv Per Pharmacy) 1 ea PRN PRN PRN Reason: PROTOCOL Stop: 07/28/18 14:01 Miscellaneous (Zosyn Iv Per Pharmacy) 1 ea PRN PRN PRN Reason: PROTOCOL Stop: 07/28/18 14:04 Morphine Sulfate (Morphine) 1 mg IVP Q4HR PRN PRN Reason: Pain (Moderate) Stop: 07/29/18 10:20 Last Admin: 05/31/18 22:39 Dose: 1 mg Pantoprazole Sodium (Protonix) 40 mg IVP DAILY [facility] Stop: 07/26/18 20:59 Last Admin: 06/05/18 09:28 Dose: 40 mg Prednisone (Prednisone) 20 mg PO DAILY [facility] Stop: 08/05/18 08:59 General: Alert, Mild distress HEENT: Atraumatic, PERRLA, Mucous membr. moist/pink Neck: Supple, +2 carotid pulse wo bruit Cardiovascular: Regular rate, Normal S1, Normal S2 Lungs: Other (coarse BS, no wheeze) Abdomen: Bowel sounds, Soft Extremities: no Edema Skin: no Rash Psych/Mental Status: Other (bipolar) - Procedures Procedures: Procedures Procedure Code Date RESPIRATORY VENTILATION, GREATER THAN 96 CONSECUTIVE HOURS [id number] 05/27/18 Assessment/Plan - Assessment Assessment: S/P acute resp failure B/L CAP Exacerbation Bronchial Asthma Ess Htn Acute Decomp Psych Pre renal azotemia - Plan Plan: Lab - Result Diagrams 06/05/18 06:54 06/05/18 06:54 Current Medications Acetylcysteine (Mucomyst 20%) 2 ml HHN Q4HRT [facility] Stop: 07/28/18 14:59 Last Admin: 06/05/18 14:14 Dose: Not Given Albuterol/Ipratropium (Duoneb Neb) 3 ml HHN Q4HRT [facility] Stop: 07/26/18 15:14 Last Admin: 06/05/18 14:15 Dose: Not Given Benazepril HCl (Lotensin) 10 mg PO DAILY [facility] Stop: 08/01/18 09:29 Last Admin: 06/05/18 09:28 Dose: 10 mg Budesonide (Pulmicort) 0.5 mg HHN BIDRT [facility] Stop: 07/26/18 18:59 Last Admin: 06/05/18 07:11 Dose: Not Given Diphenhydramine HCl (Benadryl 50 Mg/Ml) 50 mg IVP Q4HR PRN PRN Reason: Agitation Stop: 08/03/18 13:00 Last Admin: 06/04/18 23:36 Dose: 50 mg Azithromycin 500 mg/ Sodium (Chloride) 250 mls @ 250 mls/hr IV Q24HR [facility] Stop: 07/30/18 14:59 Last Infusion: 06/04/18 16:35 Dose: Infused Vancomycin HCl 1.25 gm/ Sodium (Chloride) 250 mls @ 165 mls/hr IV Q8HR@0100, 0900,1700 [facility] Stop: 08/02/18 16:59 Last Admin: 06/05/18 09:50 Dose: Not Given Piperacillin Sod/Tazobactam (Sod 4.5 gm/ Sodium Chloride) 100 mls @ 100 mls/hr IV Q8H [facility] Stop: 08/02/18 14:59 Last Admin: 06/05/18 06:54 Dose: 100 mls/hr Miscellaneous (Vancomycin Iv Per Pharmacy) 1 ea PRN PRN PRN Reason: PROTOCOL Stop: 07/28/18 14:01 Miscellaneous (Zosyn Iv Per Pharmacy) 1 [facility] PRN PRN PRN Reason: PROTOCOL Stop: 07/28/18 14:04 Morphine Sulfate (Morphine) 1 mg IVP Q4HR PRN PRN Reason: Pain (Moderate) Stop: 07/29/18 10:20 Last Admin: 05/31/18 22:39 Dose: 1 mg Pantoprazole Sodium (Protonix) 40 mg IVP DAILY [facility] Stop: 07/26/18 20:59 Last Admin: 06/05/18 09:28 Dose: 40 mg Prednisone (Prednisone) 20 mg PO DAILY [facility] Stop: 08/05/18 08:59 WBC up to 21 continue Azithro & Zosyn maintain breathing tretments Nutritional Asmnt/Malnutr-PDOC - Dietary Evaluation Malnutrition Findings (Please click <Entered> for more info): Nutritional Asmnt/Malnutrition Start: 05/28/18 14: 15 Text: Status: Complete Freq: Protocol: Document 05/28/18 14:15 FRANCISCO JAVIER (Rec: 05/28/18 14:37 FRANCISCO JAVIER [id number]) Nutritional Asmnt/Malnutrition Patient General Information Nutritional Screening High Risk Diagnosis respiratory arrest Pertinent Medical Hx/Surgical Hx asthma/COPD Subjective Information Pt from home admitted for respiratory arrest. Pt seen intubated to vent at time of visit. Pt is on propofol noted d/t increasing restlessness per RN note. Glucose 254 at admission noted, trending down to 168 today. Current Diet Order/ Nutrition Support no diet order Pertinent Medications D5-0.45ns, protonix, propofol (55mcg/kg/min) Pertinent Labs 05/28 Na 134, Cr 1.5, glucose 168 05/27 Na 133, Glucose 254 Nutritional Hx/Data Height 1.78 m Height (Calculated Centimeters) 177.8 Current Weight (lbs) 116.12 kg Weight (Calculated Kilograms) 116.1 Weight (Calculated Grams) 650561.6 [place] Body Weight 150 Body Mass Index (BMI) 36.7 Weight Status Obese GI Symptoms GI Symptoms None Last BM not indicated Skin Integrity/Comment: intact Current %PO Negligible < 25% Estimated Nutritional Goals BEE in Kcals: Adj wt of IBW Calories/Kcals/Kg 25-30 adj wt 80kg Kcals Calculated 3542-2436 Protein: Adj wt of IBW Protein g/k Protein Calculated 80 Fluid: ml 2000-2400ml (1ml/kcal) Nutritional Problem 1. Problem Problem inadequate energy intake Etiology pt intubated on vent secondary to respiratory arrest Signs/Symptoms: Pt on NPO status Intervention/Recommendation Comments 1. Monitor NPO status. Will consider alternative nutrition route if pt not able to start oral diet. 2. Monitor wt, labs and skin integrity 3. F/U as high risk in 2-3 days Expected Outcomes/Goals Expected Outcomes/Goals 1. Pt to meet at least 75% of nutritinal needs via oral diet or nutrition support 2. Wt stability, skin to remain intact, labs to approach WNL.
--- NOTE | 2018-06-05 16:03 | Progress Notes ---
DATE: PULMONARY PROGRESS NOTE SUBJECTIVE: The patient apparently was agitated earlier and taking off oxygen, refusing medications. Psych evaluation was called and the patient has received some Haldol. She is a little sedated now. Oxygen placed back on because of saturation 87%, back up to 94%. Sleepy and not in distress. OBJECTIVE: VITAL SIGNS: Temperature 97.9, pulse 95, respirations 18, blood pressure 129/83, saturation 95%. CHEST: Good breath sounds, no rhonchi. HEART: Regular rate and rhythm. ABDOMEN: Soft. EXTREMITIES: No edema. LABORATORY DATA: Other labs, WBC 22.4, hemoglobin 13.3. IMPRESSION: 1. Respiratory failure. 2. Pneumonia. 3. The patient told Dr. 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 4. Lymphangioleiomyomatosis?. PLAN: 1. Continue nebulizer treatments and antibiotics. 2. We will need to find out more information about this diagnosis and who has the patient seen before for this specific and rare disease and probably refer her to tertiary center for further care. I have discussed the case with Dr. Awad to minimize any sedation to avoid any respiratory suppression. JOB# [id number] [email or web address]
[2018-06-05] MEDS: Azithromycin 500 MG in Sodium Chloride 0.9% 250 ML IV SCH (16:40)
[2018-06-06] MEDS: Albuterol/Ipratropium Neb 3 ML AERS HHN SCH ×10 (03:41→22:43)
[2018-06-06 06:37] LABS: HEMATOCRIT 38.8 % (41.0-60); MEAN CELL VOLUME 85.1 fl (81-100); MEAN CORPUSCULAR HEMOGLOBIN 28.4 pg (27.0-31.0); MEAN CORPUSCULAR HGB CONC 33.4 pg (28.0-36.0); MEAN PLATELET VOLUME 8.4 fl; PLATELET COUNT 293 Th/cmm (150-400); RED BLOOD COUNT 4.56 Mil/cmm (3.80-5.10); RED CELL DISTRIBUTION WIDTH 14.3 % (11.5-20.0)
[2018-06-06] MEDS: Budesonide 0.5 Mg/2 mL Ud HHN SCH ×2 (07:07→19:22)
[2018-06-06 07:09] LABS: WHITE BLOOD COUNT 21.5 Th/cmm (4.8-10.8)
[2018-06-06 07:34] LABS: ANION GAP 14.5 (7.0-16.0); BUN - UREA NITROGEN 34 mg/dL (7-25); CALCIUM SERUM 8.9 mg/dL (8.6-10.3); CARBON DIOXIDE 23.6 mEq/L (21.0-31.0); CHLORIDE 107 mEq/L (98-107); CREATININE - SERUM 0.9 mg/dL (0.6-1.2); GFR AFRICAN-AMERICAN > 60.0 ml/min (>90); GFR NON AFRICAN-AMERICAN > 60.0 ml/min; GLUCOSE 95 mg/dL (70-105); POTASSIUM SERUM 3.1 mEq/L (3.5-5.1); SODIUM SERUM 142 mEq/L (136-145)
[2018-06-06 08:08] LABS: BAND NEUTROPHILE 1 % (0-10); BASOPHIL 0 % (0-3); EOSINOPHIL 1 % (0-5); LYMPHOCYTE 18 % (20-50); METAMYELOCYTE 1 % (0-0); MONOCYTE 6 % (2-10); MYELOCYTE 4 %; NEUTROPHILS 69 % (40-80)
[2018-06-06] MEDS: predniSONE 5 mg/5 mL UDC PO SCH (08:51)
--- NOTE | 2018-06-06 10:17 | Diagnostic Imaging Report ---
Exam: Chest x-ray HISTORY: Shortness of breath. Findings: Frontal examination of chest reviewed the study correlated prior exam 06/01/2018 demonstrates no active pulmonic infiltrates or effusions. Pression: no acute disease.
--- NOTE | 2018-06-06 12:42 | Infectious Disease Prog Note ---
Infectious Disease Subjective - Review of Systems Service Date: 06/06/18 Subjective: No fever. Infectious Disease Objective - Results Result Diagrams: 06/06/18 05:45 06/06/18 05:45 Recent Labs: Laboratory Last Values WBC 21.5 Th/cmm (4.8-10.8) H* 06/06/18 05:45 RBC 4.56 Mil/cmm (3.80-5.10) 06/06/18 05:45 Hgb 13.0 gm/dL (12-16) 06/06/18 05:45 Hct 38.8 % (41.0-60) L 06/06/18 05:45 MCV 85.1 fl (81-100) 06/06/18 05:45 MCH 28.4 pg (27.0-31.0) 06/06/18 05:45 MCHC Differential 33.4 pg (28.0-36.0) 06/06/18 05:45 RDW 14.3 % (11.5-20.0) 06/06/18 05:45 Plt Count 293 Th/cmm (150-400) 06/06/18 05:45 MPV 8.4 fl 06/06/18 05:45 Add Manual Diff YES 06/06/18 05:45 Band Neutrophils % 1 % (0-10) 06/06/18 05:45 Neutrophils (Manual) 69 % (40-80) 06/06/18 05:45 Lymphocytes 18 % (20-50) L 06/06/18 05:45 Monocytes 6 % (2-10) 06/06/18 05:45 Eosinophils 1 % (0-5) 06/06/18 05:45 Basophils 0 % (0-3) 06/06/18 05:45 Metamyelocytes 1 % (0-0) H 06/06/18 05:45 Myelocytes 4 % 06/06/18 05:45 Atypical Lymphocytes 7 % 05/27/18 12:10 Platelet Estimate ADEQUATE (NORMAL) 06/03/18 08:00 Smear Path Review Y 06/05/18 06:54 Specimen Source ARTERIAL 06/01/18 12:00 Sample Site Right Radial 06/01/18 12:00 pH 7.38 (7.35-7.45) 06/01/18 12:00 pCO2 42.2 mmHg (35.0-45.0) 06/01/18 12:00 pO2 59.8 mmHg (80.0-100.0) L 06/01/18 12:00 HCO3 24.5 mEq/L (20.0-26.0) 06/01/18 12:00 Base Excess -0.6 mEq/L (-3.0-3.0) 06/01/18 12:00 O2 Saturation 90.0 % (92.0-100.0) L 06/01/18 12:00 Obi Test Y 06/01/18 12:00 Vent Rate N/A 06/01/18 12:00 Inspired O2 60 06/01/18 12:00 Tidal Volume N/A 06/01/18 12:00 PEEP N/A 06/01/18 12:00 Pressure (ins/psv/peep) N/A 06/01/18 12:00 Critical Value DRAMOS 06/01/18 12:00 Sodium 142 mEq/L (136-145) 06/06/18 05:45 Potassium 3.1 mEq/L (3.5-5.1) L 06/06/18 05:45 Chloride 107 mEq/L (98-107) 06/06/18 05:45 Carbon Dioxide 23.6 mEq/L (21.0-31.0) 06/06/18 05:45 Anion Gap 14.5 (7.0-16.0) 06/06/18 05:45 BUN 34 mg/dL (7-25) H 06/06/18 05:45 Creatinine 0.9 mg/dL (0.6-1.2) 06/06/18 05:45 Est GFR ( Amer) > 60.0 ml/min (>90) 06/06/18 05:45 Est GFR (Non-Af Amer) > 60.0 ml/min 06/06/18 05:45 BUN/Creatinine Ratio 37.8 06/06/18 05:45 Glucose 95 mg/dL (70-105) 06/06/18 05:45 Whole Bld Lactic Acid 2.34 mmol/L (0.60-1.99) H* 05/28/18 06:05 Calcium 8.9 mg/dL (8.6-10.3) 06/06/18 05:45 Magnesium 2.3 mg/dL (1.9-2.7) 06/05/18 06:54 Total Bilirubin 0.7 mg/dL (0.3-1.0) 05/31/18 04:15 AST 53 U/L (13-39) H 05/31/18 04:15 ALT 63 U/L (7-52) H 05/31/18 04:15 Alkaline Phosphatase 53 U/L (34-104) 05/31/18 04:15 B-Natriuretic Peptide 32.9 pg/mL (5.0-100.0) 06/02/18 07:15 Total Protein 6.1 gm/dL (6.0-8.3) 05/31/18 04:15 Albumin 3.5 gm/dL (3.7-5.3) L 05/31/18 04:15 Globulin 2.6 gm/dL 05/31/18 04:15 Albumin/Globulin Ratio 1.4 (1.0-1.8) 05/31/18 04:15 Serum , Qual NEGATIVE (NEGATIVE) 05/27/18 14:10 Urine Source [place] 05/27/18 20:15 Urine Color PINK 05/27/18 20:15 Urine Clarity HAZY (CLEAR) 05/27/18 20:15 Urine pH 5.5 (4.6 - 8.0) 05/27/18 20:15 Ur Specific [place] 1.015 (1.005-1.030) 05/27/18 20:15 Urine Protein TRACE mg/dL (NEGATIVE) 05/27/18 20:15 Urine Glucose (UA) NEGATIVE mg/dL (NEGATIVE) 05/27/18 20:15 Urine Ketones NEGATIVE mg/dL (NEGATIVE) 05/27/18 20:15 Urine Blood LARGE (NEGATIVE) H 05/27/18 20:15 Urine Nitrate NEGATIVE (NEGATIVE) 05/27/18 20:15 Urine Bilirubin NEGATIVE (NEGATIVE) 05/27/18 20:15 Urine Urobilinogen 0.2 E.U./dL (0.2 - 1.0) 05/27/18 20:15 Ur Leukocyte Esterase TRACE (NEGATIVE) H 05/27/18 20:15 Urine RBC 50-100 /hpf (0-5) H 05/27/18 20:15 Urine WBC 2-5 /hpf (0-5) 05/27/18 20:15 Ur Epithelial Cells RARE /lpf (FEW) 05/27/18 20:15 Urine Bacteria OCCASIONAL /hpf (NONE SEEN) 05/27/18 20:15 Fluid Glucose 132.0 mg/dL 05/30/18 15:35 Vancomycin Trough 17.8 ug/mL (5-10) H 06/05/18 06:54 Urine Opiates Screen NEGATIVE (NEGATIVE) 05/27/18 20:15 Urine Methadone Screen NEGATIVE (NEGATIVE) 05/27/18 20:15 Ur Barbiturates Screen NEGATIVE (NEGATIVE) 05/27/18 20:15 Ur Tricyclics Screen NEGATIVE (NEGATIVE) 05/27/18 20:15 Ur Phencyclidine Scrn NEGATIVE (NEGATIVE) 05/27/18 20:15 Amphetamines Screen NEGATIVE (NEGATIVE) 05/27/18 20:15 U Methamphetamines Scrn NEGATIVE (NEGATIVE) 05/27/18 20:15 U Benzodiazepines Scrn POSITIVE (NEGATIVE) H 05/27/18 20:15 U Cocaine Metab Screen NEGATIVE (NEGATIVE) 05/27/18 20:15 U Cannabinoids Screen NEGATIVE (NEGATIVE) 05/27/18 20:15 Influenza A (Rapid) NEG FOR INF A 05/27/18 20:25 Influenza B (Rapid) NEG FOR INF B 05/27/18 20:25 L.pneumophila Antigen Negative (Negative) 06/01/18 06:30 - Physical Exam Vitals and I&O: Vital Signs Temp 98.6 F 06/06/18 08:00 Pulse 108 06/06/18 10:15 Resp 20 06/06/18 10:15 BP 157/98 06/06/18 08:50 Pulse Ox 89 06/06/18 10:15 Intake & Output 06/05/18 06/06/18 06/06/18 18:59 06:59 18:59 Intake Total 900 100 200 Balance 900 100 200 Weight (lbs) 111.13 kg 111.13 kg 111.13 kg Intake: Intake, IV Amount 100 Piperacillin Sodium/ 100 Tazobact 4.5 gm In Sodium Chloride 0.9% 100 ml @ 100 mls/hr IV Q8H JOO Rx# :[id number] Oral 800 100 200 Other: # Voids 3 2 2 # Bowel Movements 0 0 0 Stool Characteristics Soft Soft Soft Formed Formed Formed Weight Source Bedscale Bedscale Bedscale Active Medications: Current Medications Acetylcysteine (Mucomyst 20%) 2 ml HHN Q4HRT [facility] Stop: 07/28/18 14:59 Last Admin: 06/06/18 07:07 Dose: Not Given Albuterol/Ipratropium (Duoneb Neb) 3 ml HHN Q4HRT [facility] Stop: 07/26/18 15:14 Last Admin: 06/06/18 10:14 Dose: Not Given Benazepril HCl (Lotensin) 10 mg PO DAILY [facility] Stop: 08/01/18 09:29 Last Admin: 06/06/18 08:50 Dose: Not Given Budesonide (Pulmicort) 0.5 mg HHN BIDRT [facility] Stop: 07/26/18 18:59 Last Admin: 06/06/18 07:07 Dose: Not Given Diphenhydramine HCl (Benadryl 50 Mg/Ml) 50 mg IVP Q4HR PRN PRN Reason: Agitation Stop: 08/03/18 13:00 Last Admin: 06/04/18 23:36 Dose: 50 mg Azithromycin 500 mg/ Sodium (Chloride) 250 mls @ 250 mls/hr IV Q24HR [facility] Stop: 07/30/18 14:59 Last Admin: 06/05/18 16:40 Dose: 250 mls/hr Vancomycin HCl 1.25 gm/ Sodium (Chloride) 250 mls @ 165 mls/hr IV Q8HR@0100, 0900,1700 [facility] Stop: 08/02/18 16:59 Last Admin: 06/06/18 08:51 Dose: Not Given Piperacillin Sod/Tazobactam (Sod 4.5 gm/ Sodium Chloride) 100 mls @ 100 mls/hr IV Q8H [facility] Stop: 08/02/18 14:59 Last Admin: 06/06/18 07:09 Dose: Not Given Miscellaneous (Vancomycin Iv Per Pharmacy) 1 ea MC PRN PRN PRN Reason: PROTOCOL Stop: 07/28/18 14:01 Miscellaneous (Zosyn Iv Per Pharmacy) 1 ea MC PRN PRN PRN Reason: PROTOCOL Stop: 07/28/18 14:04 Morphine Sulfate (Morphine) 1 mg IVP Q4HR PRN PRN Reason: Pain (Moderate) Stop: 07/29/18 10:20 Last Admin: 05/31/18 22:39 Dose: 1 mg Pantoprazole Sodium (Protonix) 40 mg IVP DAILY [facility] Stop: 07/26/18 20:59 Last Admin: 06/06/18 08:51 Dose: Not Given Prednisone (Prednisone) 20 mg PO DAILY [facility] Stop: 08/05/18 08:59 Last Admin: 06/06/18 08:51 Dose: Not Given Quetiapine Fumarate (Seroquel) 50 mg PO BID [facility]; Protocol Stop: 08/05/18 16:59 General: no acute distress, well developed, well nourished HEENT: atraumatic, normocephalic, PERRLA, EOMI Neck: supple, no thyromegaly Cardiovascular: S1S2, regular Lungs: clear to auscultation bilaterally, clear to percussion Abdomen: soft, bowel sounds, no tender, no distended, no mass Extremities: no cyanosis, no clubbing, no edema Neurological: awake, alert Skin: intact - Procedures Procedures: Procedures Procedure Code Date RESPIRATORY VENTILATION, GREATER THAN 96 CONSECUTIVE HOURS [id number] 05/27/18 Infectious Disease Assmt/Plan - Assessment Assessment: 1. Pneumonia. 2. Respiratory failure. 3. Sepsis. 4. Asthma and chronic obstructive pulmonary disease. 5. May have interstitial lung disease. 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 8. Leukocytosis, 2/2 steroids. - Plan Plan: 1. Continue vancomycin, and Zosyn. 2. Continue same treatment. Nutritional Asmnt/Malnutr-PDOC - Dietary Evaluation Malnutrition Findings (Please click <Entered> for more info): Nutritional Asmnt/Malnutrition Start: 05/28/18 14: 15 Text: Status: Complete Freq: Protocol: Document 05/28/18 14:15 LCHENG (Rec: 05/28/18 14:37 [email or web address]) Nutritional Asmnt/Malnutrition Patient General Information Nutritional Screening High Risk Diagnosis respiratory arrest Pertinent Medical Hx/Surgical Hx asthma/COPD Subjective Information Pt from home admitted for respiratory arrest. Pt seen intubated to vent at time of visit. Pt is on propofol noted d/t increasing restlessness per RN note. Glucose 254 at admission noted, trending down to 168 today. Current Diet Order/ Nutrition Support no diet order Pertinent Medications D5-0.45ns, protonix, propofol (55mcg/kg/min) Pertinent Labs 05/28 Na 134, Cr 1.5, glucose 168 05/27 Na 133, Glucose 254 Nutritional Hx/Data Height 1.78 m Height (Calculated Centimeters) 177.8 Current Weight (lbs) 116.12 kg Weight (Calculated Kilograms) 116.1 Weight (Calculated Grams) 733517.6 [place] Body Weight 150 Body Mass Index (BMI) 36.7 Weight Status Obese GI Symptoms GI Symptoms None Last BM not indicated Skin Integrity/Comment: intact Current %PO Negligible < 25% Estimated Nutritional Goals BEE in Kcals: Adj wt of IBW Calories/Kcals/Kg 25-30 adj wt 80kg Kcals Calculated [id number] Protein: Adj wt of IBW Protein g/k Protein Calculated 80 Fluid: ml 2000-2400ml (1ml/kcal) Nutritional Problem 1. Problem Problem inadequate energy intake Etiology pt intubated on vent secondary to respiratory arrest Signs/Symptoms: Pt on NPO status Intervention/Recommendation Comments 1. Monitor NPO status. Will consider alternative nutrition route if pt not able to start oral diet. 2. Monitor wt, labs and skin integrity 3. F/U as high risk in 2-3 days Expected Outcomes/Goals Expected Outcomes/Goals 1. Pt to meet at least 75% of nutritinal needs via oral diet or nutrition support 2. Wt stability, skin to remain intact, labs to approach WNL.
--- NOTE | 2018-06-06 12:57 | Progress Notes ---
DATE: 06/05/2018 PULMONARY PROGRESS NOTE SUBJECTIVE: The patient is doing much better today, up in chair, talking off oxygen. No distress, no shortness of breath. Sometimes, she is talking little bit off about classified information and different things that make sense to me, but she is feeling great, told that she is doing better and she says she is doing this for her daughter, not her mother or anybody else. OBJECTIVE: VITAL SIGNS: Her vitals today are temperature is 97.6, pulse 87, respiration is 20, blood pressure 123/69, saturation is 98%. CHEST: Good breath sounds, no wheezing, no crackles. HEART: Regular rate and rhythm. ABDOMEN: Soft. EXTREMITIES: No edema. IMPRESSION: 1. Respiratory failure. 2. Pneumonia. 3. Possible underlying interstitial lung disease. We do not have any information and family not providing any further information about the previous treatment. PLAN: Continue nebulizer treatment, antibiotics probably can be switched to oral, change Solu-Medrol to prednisone, and do discharge planning. The patient continues to refuse chest x-ray to be done yesterday and today. psych eval in progress JOB# [id number] HAYLIE
[2018-06-06] MEDS ORDERED: Potassium Chloride 20 mEq ER Tab PO ONE (16:23)
--- NOTE | 2018-06-06 16:23 | General Progress Note ---
Subjective - Review of Systems Service Date: 06/06/18 Subjective: alert, uncooperative, refused meds Objective - Results Result Diagrams: 06/06/18 05:45 06/06/18 05:45 Recent Labs: Laboratory Last Values WBC 21.5 Th/cmm (4.8-10.8) H* 06/06/18 05:45 RBC 4.56 Mil/cmm (3.80-5.10) 06/06/18 05:45 Hgb 13.0 gm/dL (12-16) 06/06/18 05:45 Hct 38.8 % (41.0-60) L 06/06/18 05:45 MCV 85.1 fl (81-100) 06/06/18 05:45 MCH 28.4 pg (27.0-31.0) 06/06/18 05:45 MCHC Differential 33.4 pg (28.0-36.0) 06/06/18 05:45 RDW 14.3 % (11.5-20.0) 06/06/18 05:45 Plt Count 293 Th/cmm (150-400) 06/06/18 05:45 MPV 8.4 fl 06/06/18 05:45 Add Manual Diff YES 06/06/18 05:45 Band Neutrophils % 1 % (0-10) 06/06/18 05:45 Neutrophils (Manual) 69 % (40-80) 06/06/18 05:45 Lymphocytes 18 % (20-50) L 06/06/18 05:45 Monocytes 6 % (2-10) 06/06/18 05:45 Eosinophils 1 % (0-5) 06/06/18 05:45 Basophils 0 % (0-3) 06/06/18 05:45 Metamyelocytes 1 % (0-0) H 06/06/18 05:45 Myelocytes 4 % 06/06/18 05:45 Atypical Lymphocytes 7 % 05/27/18 12:10 Platelet Estimate ADEQUATE (NORMAL) 06/03/18 08:00 Smear Path Review Y 06/05/18 06:54 Specimen Source ARTERIAL 06/01/18 12:00 Sample Site Right Radial 06/01/18 12:00 pH 7.38 (7.35-7.45) 06/01/18 12:00 pCO2 42.2 mmHg (35.0-45.0) 06/01/18 12:00 pO2 59.8 mmHg (80.0-100.0) L 06/01/18 12:00 HCO3 24.5 mEq/L (20.0-26.0) 06/01/18 12:00 Base Excess -0.6 mEq/L (-3.0-3.0) 06/01/18 12:00 O2 Saturation 90.0 % (92.0-100.0) L 06/01/18 12:00 Obi Test Y 06/01/18 12:00 Vent Rate N/A 06/01/18 12:00 Inspired O2 60 06/01/18 12:00 Tidal Volume N/A 06/01/18 12:00 PEEP N/A 06/01/18 12:00 Pressure (ins/psv/peep) N/A 06/01/18 12:00 Critical Value DRAMOS 06/01/18 12:00 Sodium 142 mEq/L (136-145) 06/06/18 05:45 Potassium 3.1 mEq/L (3.5-5.1) L 06/06/18 05:45 Chloride 107 mEq/L (98-107) 06/06/18 05:45 Carbon Dioxide 23.6 mEq/L (21.0-31.0) 06/06/18 05:45 Anion Gap 14.5 (7.0-16.0) 06/06/18 05:45 BUN 34 mg/dL (7-25) H 06/06/18 05:45 Creatinine 0.9 mg/dL (0.6-1.2) 06/06/18 05:45 Est GFR ( Amer) > 60.0 ml/min (>90) 06/06/18 05:45 Est GFR (Non-Af Amer) > 60.0 ml/min 06/06/18 05:45 BUN/Creatinine Ratio 37.8 06/06/18 05:45 Glucose 95 mg/dL (70-105) 06/06/18 05:45 Whole Bld Lactic Acid 2.34 mmol/L (0.60-1.99) H* 05/28/18 06:05 Calcium 8.9 mg/dL (8.6-10.3) 06/06/18 05:45 Magnesium 2.3 mg/dL (1.9-2.7) 06/05/18 06:54 Total Bilirubin 0.7 mg/dL (0.3-1.0) 05/31/18 04:15 AST 53 U/L (13-39) H 05/31/18 04:15 ALT 63 U/L (7-52) H 05/31/18 04:15 Alkaline Phosphatase 53 U/L (34-104) 05/31/18 04:15 B-Natriuretic Peptide 32.9 pg/mL (5.0-100.0) 06/02/18 07:15 Total Protein 6.1 gm/dL (6.0-8.3) 05/31/18 04:15 Albumin 3.5 gm/dL (3.7-5.3) L 05/31/18 04:15 Globulin 2.6 gm/dL 05/31/18 04:15 Albumin/Globulin Ratio 1.4 (1.0-1.8) 05/31/18 04:15 Serum , Qual NEGATIVE (NEGATIVE) 05/27/18 14:10 Urine Source [place] 05/27/18 20:15 Urine Color PINK 05/27/18 20:15 Urine Clarity HAZY (CLEAR) 05/27/18 20:15 Urine pH 5.5 (4.6 - 8.0) 05/27/18 20:15 Ur Specific [place] 1.015 (1.005-1.030) 05/27/18 20:15 Urine Protein TRACE mg/dL (NEGATIVE) 05/27/18 20:15 Urine Glucose (UA) NEGATIVE mg/dL (NEGATIVE) 05/27/18 20:15 Urine Ketones NEGATIVE mg/dL (NEGATIVE) 05/27/18 20:15 Urine Blood LARGE (NEGATIVE) H 05/27/18 20:15 Urine Nitrate NEGATIVE (NEGATIVE) 05/27/18 20:15 Urine Bilirubin NEGATIVE (NEGATIVE) 05/27/18 20:15 Urine Urobilinogen 0.2 E.U./dL (0.2 - 1.0) 05/27/18 20:15 Ur Leukocyte Esterase TRACE (NEGATIVE) H 05/27/18 20:15 Urine RBC 50-100 /hpf (0-5) H 05/27/18 20:15 Urine WBC 2-5 /hpf (0-5) 05/27/18 20:15 Ur Epithelial Cells RARE /lpf (FEW) 05/27/18 20:15 Urine Bacteria OCCASIONAL /hpf (NONE SEEN) 05/27/18 20:15 Fluid Glucose 132.0 mg/dL 05/30/18 15:35 Vancomycin Trough 17.8 ug/mL (5-10) H 06/05/18 06:54 Urine Opiates Screen NEGATIVE (NEGATIVE) 05/27/18 20:15 Urine Methadone Screen NEGATIVE (NEGATIVE) 05/27/18 20:15 Ur Barbiturates Screen NEGATIVE (NEGATIVE) 05/27/18 20:15 Ur Tricyclics Screen NEGATIVE (NEGATIVE) 05/27/18 20:15 Ur Phencyclidine Scrn NEGATIVE (NEGATIVE) 05/27/18 20:15 Amphetamines Screen NEGATIVE (NEGATIVE) 05/27/18 20:15 U Methamphetamines Scrn NEGATIVE (NEGATIVE) 05/27/18 20:15 U Benzodiazepines Scrn POSITIVE (NEGATIVE) H 05/27/18 20:15 U Cocaine Metab Screen NEGATIVE (NEGATIVE) 05/27/18 20:15 U Cannabinoids Screen NEGATIVE (NEGATIVE) 05/27/18 20:15 Influenza A (Rapid) NEG FOR INF A 05/27/18 20:25 Influenza B (Rapid) NEG FOR INF B 05/27/18 20:25 L.pneumophila Antigen Negative (Negative) 06/01/18 06:30 - Physical Exam Vitals and I&O: Vital Signs Temp 98.6 F 06/06/18 12:00 Pulse 98 06/06/18 14:51 Resp 20 06/06/18 14:51 BP 145/85 06/06/18 12:00 Pulse Ox 91 06/06/18 14:51 Intake & Output 06/05/18 06/06/18 06/06/18 18:59 06:59 18:59 Intake Total 900 100 200 Balance 900 100 200 Weight (lbs) 111.13 kg 111.13 kg 111.13 kg Intake: Intake, IV Amount 100 Piperacillin Sodium/ 100 Tazobact 4.5 gm In Sodium Chloride 0.9% 100 ml @ 100 mls/hr IV Q8H [facility] Rx# :[id number] Oral 800 100 200 Other: # Voids 3 2 2 # Bowel Movements 0 0 0 Stool Characteristics Soft Soft Soft Formed Formed Formed Weight Source Bedscale Bedscale Bedscale Active Medications: Current Medications Acetylcysteine (Mucomyst 20%) 2 ml HHN Q4HRT [facility] Stop: 07/28/18 14:59 Last Admin: 06/06/18 14:49 Dose: Not Given Albuterol/Ipratropium (Duoneb Neb) 3 ml HHN Q4HRT [facility] Stop: 07/26/18 15:14 Last Admin: 06/06/18 14:49 Dose: Not Given Benazepril HCl (Lotensin) 10 mg PO DAILY [facility] Stop: 08/01/18 09:29 Last Admin: 06/06/18 08:50 Dose: Not Given Budesonide (Pulmicort) 0.5 mg HHN BIDRT [facility] Stop: 07/26/18 18:59 Last Admin: 06/06/18 07:07 Dose: Not Given Diphenhydramine HCl (Benadryl 50 Mg/Ml) 50 mg IVP Q4HR PRN PRN Reason: Agitation Stop: 08/03/18 13:00 Last Admin: 06/04/18 23:36 Dose: 50 mg Vancomycin HCl 1.25 gm/ Sodium (Chloride) 250 mls @ 165 mls/hr IV Q8HR@0100, 0900,1700 [facility] Stop: 08/02/18 16:59 Last Admin: 06/06/18 08:51 Dose: Not Given Piperacillin Sod/Tazobactam (Sod 4.5 gm/ Sodium Chloride) 100 mls @ 100 mls/hr IV Q8H [facility] Stop: 08/02/18 14:59 Last Admin: 06/06/18 07:09 Dose: Not Given Miscellaneous (Vancomycin Iv Per Pharmacy) 1 ea PRN PRN PRN Reason: PROTOCOL Stop: 07/28/18 14:01 Miscellaneous (Zosyn Iv Per Pharmacy) 1 ea PRN PRN PRN Reason: PROTOCOL Stop: 07/28/18 14:04 Morphine Sulfate (Morphine) 1 mg IVP Q4HR PRN PRN Reason: Pain (Moderate) Stop: 07/29/18 10:20 Last Admin: 05/31/18 22:39 Dose: 1 mg Pantoprazole Sodium (Protonix) 40 mg IVP DAILY [facility] Stop: 07/26/18 20:59 Last Admin: 06/06/18 08:51 Dose: Not Given Prednisone (Prednisone) 20 mg PO DAILY [facility] Stop: 08/05/18 08:59 Last Admin: 06/06/18 08:51 Dose: Not Given Quetiapine Fumarate (Seroquel) 50 mg PO BID [facility]; Protocol Stop: 08/05/18 16:59 General: Alert, Mild distress HEENT: Atraumatic, PERRLA, Mucous membr. moist/pink Neck: Supple, +2 carotid pulse wo bruit Cardiovascular: Regular rate, Normal S1, Normal S2 Lungs: Other (coarse BS, no wheeze) Abdomen: Bowel sounds, Soft Extremities: no Edema Skin: no Rash Psych/Mental Status: Other (bipolar disorder) - Procedures Procedures: Procedures Procedure Code Date RESPIRATORY VENTILATION, GREATER THAN 96 CONSECUTIVE HOURS [id number] 05/27/18 Assessment/Plan - Assessment Assessment: S/P acute resp failure B/L CAP Exacerbation Bronchial Asthma Ess Htn Acute Decomp Psych/ Bipolar Dis Pre renal azotemia - Plan Plan: Lab - Result Diagrams 06/05/18 06:54 06/05/18 06:54 Current Medications Acetylcysteine (Mucomyst 20%) 2 ml HHN Q4HRT [facility] Stop: 07/28/18 14:59 Last Admin: 06/05/18 14:14 Dose: Not Given Albuterol/Ipratropium (Duoneb Neb) 3 ml HHN Q4HRT [facility] Stop: 07/26/18 15:14 Last Admin: 06/05/18 14:15 Dose: Not Given Benazepril HCl (Lotensin) 10 mg PO DAILY [facility] Stop: 08/01/18 09:29 Last Admin: 06/05/18 09:28 Dose: 10 mg Budesonide (Pulmicort) 0.5 mg HHN BIDRT [facility] Stop: 07/26/18 18:59 Last Admin: 06/05/18 07:11 Dose: Not Given Diphenhydramine HCl (Benadryl 50 Mg/Ml) 50 mg IVP Q4HR PRN PRN Reason: Agitation Stop: 08/03/18 13:00 Last Admin: 06/04/18 23:36 Dose: 50 mg Azithromycin 500 mg/ Sodium (Chloride) 250 mls @ 250 mls/hr IV Q24HR [facility] Stop: 07/30/18 14:59 Last Infusion: 06/04/18 16:35 Dose: Infused Vancomycin HCl 1.25 gm/ Sodium (Chloride) 250 mls @ 165 mls/hr IV Q8HR@0100, 0900,1700 [facility] Stop: 08/02/18 16:59 Last Admin: 06/05/18 09:50 Dose: Not Given Piperacillin Sod/Tazobactam (Sod 4.5 gm/ Sodium Chloride) 100 mls @ 100 mls/hr IV Q8H [facility] Stop: 08/02/18 14:59 Last Admin: 06/05/18 06:54 Dose: 100 mls/hr Miscellaneous (Vancomycin Iv Per Pharmacy) [facility] PRN PRN PRN Reason: PROTOCOL Stop: 07/28/18 14:01 Miscellaneous (Zosyn Iv Per Pharmacy) [facility] PRN PRN PRN Reason: PROTOCOL Stop: 07/28/18 14:04 Morphine Sulfate (Morphine) 1 mg IVP Q4HR PRN PRN Reason: Pain (Moderate) Stop: 07/29/18 10:20 Last Admin: 05/31/18 22:39 Dose: 1 mg Pantoprazole Sodium (Protonix) 40 mg IVP DAILY [facility] Stop: 07/26/18 20:59 Last Admin: 06/05/18 09:28 Dose: 40 mg Prednisone (Prednisone) 20 mg PO DAILY [facility] Stop: 08/05/18 08:59 Lab - Result Diagrams 06/06/18 05:45 06/06/18 05:45 WBC up to 21 continue Azithro & Zosyn maintain breathing tretments replace K if agrees Nutritional Asmnt/Malnutr-PDOC - Dietary Evaluation Malnutrition Findings (Please click <Entered> for more info): Nutritional Asmnt/Malnutrition Start: 05/28/18 14: 15 Text: Status: Complete Freq: Protocol: Document 05/28/18 14:15 LCHENG (Rec: 05/28/18 14:37 [id number]) Nutritional Asmnt/Malnutrition Patient General Information Nutritional Screening High Risk Diagnosis respiratory arrest Pertinent Medical Hx/Surgical Hx asthma/COPD Subjective Information Pt from home admitted for respiratory arrest. Pt seen intubated to vent at time of visit. Pt is on propofol noted d/t increasing restlessness per RN note. Glucose 254 at admission noted, trending down to 168 today. Current Diet Order/ Nutrition Support no diet order Pertinent Medications D5-0.45ns, protonix, propofol (55mcg/kg/min) Pertinent Labs 05/28 Na 134, Cr 1.5, glucose 168 05/27 Na 133, Glucose 254 Nutritional Hx/Data Height 1.78 m Height (Calculated Centimeters) 177.8 Current Weight (lbs) 116.12 kg Weight (Calculated Kilograms) 116.1 Weight (Calculated Grams) 403841.6 [place] Body Weight 150 Body Mass Index (BMI) 36.7 Weight Status Obese GI Symptoms GI Symptoms None Last BM not indicated Skin Integrity/Comment: intact Current %PO Negligible < 25% Estimated Nutritional Goals BEE in Kcals: Adj wt of IBW Calories/Kcals/Kg 25-30 adj wt 80kg Kcals Calculated 5628-4885 Protein: Adj wt of IBW Protein g/k Protein Calculated 80 Fluid: ml 2000-2400ml (1ml/kcal) Nutritional Problem 1. Problem Problem inadequate energy intake Etiology pt intubated on vent secondary to respiratory arrest Signs/Symptoms: Pt on NPO status Intervention/Recommendation Comments 1. Monitor NPO status. Will consider alternative nutrition route if pt not able to start oral diet. 2. Monitor wt, labs and skin integrity 3. F/U as high risk in 2-3 days Expected Outcomes/Goals Expected Outcomes/Goals 1. Pt to meet at least 75% of nutritinal needs via oral diet or nutrition support 2. Wt stability, skin to remain intact, labs to approach WNL.
--- NOTE | 2018-06-06 23:36 | Progress Notes ---
DATE: 06/06/2018 SUBJECTIVE: Staff was spoken to. The patient is interviewed and the patient's has been spoken to. The patient is reported to be not having any prior psychiatric hospitalizations or treatment. The patient's has been mentioning everything has been happening since the patient has been moved out of the ICU. The patient at this time is noted to be grossly psychotic and has been having acute mood swings and the patient is going on a tangent. The patient is stating that all the medications are on her phone, but she is not going to give them to me because I am looking at her. The patient is very distracted at this time. Attention span is noted to be very poor. ASSESSMENT: The patient is still grossly psychotic. PLAN: To increase the dose on the Seroquel to 50 mg twice a day and give a dose now and follow the patient up. JOB# [id number]
[2018-06-07] MEDS: Albuterol/Ipratropium Neb 3 ML AERS HHN SCH ×7 (03:02→22:40)
--- NOTE | 2018-06-07 05:52 | Progress Notes ---
DATE: 06/04/2018 PSYCHOLOGY CONSULT NOTE REFERRING PHYSICIAN: Dr. Bangura. SUBJECTIVE: The patient is seen in her room with her and [id number] also present. The patient is guarded and suspicious. This greeting card writer had a short discussion with the patient's and [id number] to provide some collateral information. They are supportive in her care. The patient's nurse, Phoebe was also present and indicated that the patient has become easily agitated and occasionally refuses treatment. The patient stated she is "doing this for her daughter". OBJECTIVE: The patient was then seen 1:1. The patient is guarded and suspicious and talking to herself as well as laughing inappropriately. The patient may be responding to internal stimuli. Mood is fluctuating rapidly. The patient's thought process showed to be markedly tangential with loose associations and rising to the point of flight of ideas. The patient was unable to be cognitively redirected and did not participate in the clinical interview or the mental status examination. The patient verbalized thoughts of victimization as well as possible persecutory type of delusions. She denied any command type. The patient's speech was rambling. She answered questions irrelevantly. Concentration is poor and impaired. The patient was unable to sustain focus and attention and participate in the clinical interview. The patient's behavior is restless and irritable and oppositional. The patient is possibly decompensating. Impulse control is inadequate. ASSESSMENT: Record review indicates a provisional diagnosis of Bipolar Disorder by history. This needs further evaluation. PLAN: Case was discussed with the staff and the patient's treatment nurse. Psychiatry consult has been ordered by the attending physician for medication management as well as for psychiatric evaluation. This greeting card writer was unable to provide specific psychological interventions; however, de-escalation and cognitive redirection were provided. Reality testing is poor. Reality orientation and differentiation were also provided. We provided motivational enhancement for the patient to become compliant with all aspects of her care and treatment. This greeting card writer will follow up in 2 to 3 days to continue the present treatment as well as to provide a full psychiatric evaluation and clinical interview. The patient's primary caregiver is her , Italo, with whom she lives at home. The patient anticipates discharging home. Possible transfer to the geropsychiatric unit is to be considered upon medical stabilization. Thank you, Dr. Bangura, for this consult and the opportunity to participate in this patient's care. JOB# [id number] HAYLIE
[2018-06-07] MEDS: Budesonide 0.5 Mg/2 mL Ud HHN SCH ×2 (07:43→19:00)
[2018-06-07] MEDS ORDERED: Potassium Chloride 20 mEq ER Tab PO ONE (09:40)
--- NOTE | 2018-06-07 09:40 | Internal Medicine Prog Note ---
Internal Medicine Subjective - Subjective Service Date: 06/07/18 (REFUSING LABS/CXR) Patient seen and examined:: with staff Patient is:: awake (comfortable), verbal, agitated, confused Per staff patient has:: agitated, combative, confused, refusing labs Internal Medicine Objective - Results Result Diagrams: 06/06/18 05:45 06/06/18 05:45 Recent Labs: Laboratory Last Values WBC 21.5 Th/cmm (4.8-10.8) H* 06/06/18 05:45 RBC 4.56 Mil/cmm (3.80-5.10) 06/06/18 05:45 Hgb 13.0 gm/dL (12-16) 06/06/18 05:45 Hct 38.8 % (41.0-60) L 06/06/18 05:45 MCV 85.1 fl (81-100) 06/06/18 05:45 MCH 28.4 pg (27.0-31.0) 06/06/18 05:45 MCHC Differential 33.4 pg (28.0-36.0) 06/06/18 05:45 RDW 14.3 % (11.5-20.0) 06/06/18 05:45 Plt Count 293 Th/cmm (150-400) 06/06/18 05:45 MPV 8.4 fl 06/06/18 05:45 Add Manual Diff YES 06/06/18 05:45 Band Neutrophils % 1 % (0-10) 06/06/18 05:45 Neutrophils (Manual) 69 % (40-80) 06/06/18 05:45 Lymphocytes 18 % (20-50) L 06/06/18 05:45 Monocytes 6 % (2-10) 06/06/18 05:45 Eosinophils 1 % (0-5) 06/06/18 05:45 Basophils 0 % (0-3) 06/06/18 05:45 Metamyelocytes 1 % (0-0) H 06/06/18 05:45 Myelocytes 4 % 06/06/18 05:45 Atypical Lymphocytes 7 % 05/27/18 12:10 Platelet Estimate ADEQUATE (NORMAL) 06/03/18 08:00 Smear Path Review Y 06/05/18 06:54 Specimen Source ARTERIAL 06/01/18 12:00 Sample Site Right Radial 06/01/18 12:00 pH 7.38 (7.35-7.45) 06/01/18 12:00 pCO2 42.2 mmHg (35.0-45.0) 06/01/18 12:00 pO2 59.8 mmHg (80.0-100.0) L 06/01/18 12:00 HCO3 24.5 mEq/L (20.0-26.0) 06/01/18 12:00 Base Excess -0.6 mEq/L (-3.0-3.0) 06/01/18 12:00 O2 Saturation 90.0 % (92.0-100.0) L 06/01/18 12:00 Obi Test Y 06/01/18 12:00 Vent Rate N/A 06/01/18 12:00 Inspired O2 60 06/01/18 12:00 Tidal Volume N/A 06/01/18 12:00 PEEP N/A 06/01/18 12:00 Pressure (ins/psv/peep) N/A 06/01/18 12:00 Critical Value DRAMOS 06/01/18 12:00 Sodium 142 mEq/L (136-145) 06/06/18 05:45 Potassium 3.1 mEq/L (3.5-5.1) L 06/06/18 05:45 Chloride 107 mEq/L (98-107) 06/06/18 05:45 Carbon Dioxide 23.6 mEq/L (21.0-31.0) 06/06/18 05:45 Anion Gap 14.5 (7.0-16.0) 06/06/18 05:45 BUN 34 mg/dL (7-25) H 06/06/18 05:45 Creatinine 0.9 mg/dL (0.6-1.2) 06/06/18 05:45 Est GFR ( Amer) > 60.0 ml/min (>90) 06/06/18 05:45 Est GFR (Non-Af Amer) > 60.0 ml/min 06/06/18 05:45 BUN/Creatinine Ratio 37.8 06/06/18 05:45 Glucose 95 mg/dL (70-105) 06/06/18 05:45 Whole Bld Lactic Acid 2.34 mmol/L (0.60-1.99) H* 05/28/18 06:05 Calcium 8.9 mg/dL (8.6-10.3) 06/06/18 05:45 Magnesium 2.3 mg/dL (1.9-2.7) 06/05/18 06:54 Total Bilirubin 0.7 mg/dL (0.3-1.0) 05/31/18 04:15 AST 53 U/L (13-39) H 05/31/18 04:15 ALT 63 U/L (7-52) H 05/31/18 04:15 Alkaline Phosphatase 53 U/L (34-104) 05/31/18 04:15 B-Natriuretic Peptide 32.9 pg/mL (5.0-100.0) 06/02/18 07:15 Total Protein 6.1 gm/dL (6.0-8.3) 05/31/18 04:15 Albumin 3.5 gm/dL (3.7-5.3) L 05/31/18 04:15 Globulin 2.6 gm/dL 05/31/18 04:15 Albumin/Globulin Ratio 1.4 (1.0-1.8) 05/31/18 04:15 Serum , Qual NEGATIVE (NEGATIVE) 05/27/18 14:10 Urine Source [place] 05/27/18 20:15 Urine Color PINK 05/27/18 20:15 Urine Clarity HAZY (CLEAR) 05/27/18 20:15 Urine pH 5.5 (4.6 - 8.0) 05/27/18 20:15 Ur Specific [place] 1.015 (1.005-1.030) 05/27/18 20:15 Urine Protein TRACE mg/dL (NEGATIVE) 05/27/18 20:15 Urine Glucose (UA) NEGATIVE mg/dL (NEGATIVE) 05/27/18 20:15 Urine Ketones NEGATIVE mg/dL (NEGATIVE) 05/27/18 20:15 Urine Blood LARGE (NEGATIVE) H 05/27/18 20:15 Urine Nitrate NEGATIVE (NEGATIVE) 05/27/18 20:15 Urine Bilirubin NEGATIVE (NEGATIVE) 05/27/18 20:15 Urine Urobilinogen 0.2 E.U./dL (0.2 - 1.0) 05/27/18 20:15 Ur Leukocyte Esterase TRACE (NEGATIVE) H 05/27/18 20:15 Urine RBC 50-100 /hpf (0-5) H 05/27/18 20:15 Urine WBC 2-5 /hpf (0-5) 05/27/18 20:15 Ur Epithelial Cells RARE /lpf (FEW) 05/27/18 20:15 Urine Bacteria OCCASIONAL /hpf (NONE SEEN) 05/27/18 20:15 Fluid Glucose 132.0 mg/dL 05/30/18 15:35 Vancomycin Trough 17.8 ug/mL (5-10) H 06/05/18 06:54 Urine Opiates Screen NEGATIVE (NEGATIVE) 05/27/18 20:15 Urine Methadone Screen NEGATIVE (NEGATIVE) 05/27/18 20:15 Ur Barbiturates Screen NEGATIVE (NEGATIVE) 05/27/18 20:15 Ur Tricyclics Screen NEGATIVE (NEGATIVE) 05/27/18 20:15 Ur Phencyclidine Scrn NEGATIVE (NEGATIVE) 05/27/18 20:15 Amphetamines Screen NEGATIVE (NEGATIVE) 05/27/18 20:15 U Methamphetamines Scrn NEGATIVE (NEGATIVE) 05/27/18 20:15 U Benzodiazepines Scrn POSITIVE (NEGATIVE) H 05/27/18 20:15 U Cocaine Metab Screen NEGATIVE (NEGATIVE) 05/27/18 20:15 U Cannabinoids Screen NEGATIVE (NEGATIVE) 05/27/18 20:15 Influenza A (Rapid) NEG FOR INF A 05/27/18 20:25 Influenza B (Rapid) NEG FOR INF B 05/27/18 20:25 L.pneumophila Antigen Negative (Negative) 06/01/18 06:30 - Physical Exam Vitals and I&O: Vital Signs Temp 97.8 F 06/07/18 08:00 Pulse 112 06/07/18 08:00 Resp 18 06/07/18 08:00 BP 127/90 06/07/18 08:00 Pulse Ox 92 06/07/18 08:00 Intake & Output 06/06/18 06/07/18 06/07/18 18:59 06:59 18:59 Intake Total 800 250 100 Balance 800 250 100 Weight (lbs) 111.13 kg 111.612 kg Intake: Intake, IV Amount 250 100 Piperacillin Sodium/ 100 Tazobact 4.5 gm In Sodium Chloride 0.9% 100 ml @ 100 mls/hr IV Q8H [facility] Rx# :[id number] Vancomycin HCl 1.25 gm In 250 Sodium Chloride 0.9% 250 ml @ 165 mls/hr IV Q8HR@ 0100,0900,1700 [facility] Rx#: [id number] Oral 800 0 Other: # Voids 3 3 # Bowel Movements 0 0 Stool Characteristics Soft Soft Formed Formed Weight Source Bedscale Bedscale Active Medications: Current Medications Acetylcysteine (Mucomyst 20%) 2 ml HHN Q4HRT [facility] Stop: 07/28/18 14:59 Last Admin: 06/07/18 07:43 Dose: Not Given Albuterol/Ipratropium (Duoneb Neb) 3 ml HHN Q4HRT [facility] Stop: 07/26/18 15:14 Last Admin: 06/07/18 07:43 Dose: Not Given Benazepril HCl (Lotensin) 10 mg PO DAILY [facility] Stop: 08/01/18 09:29 Last Admin: 06/06/18 08:50 Dose: Not Given Budesonide (Pulmicort) 0.5 mg HHN BIDRT [facility] Stop: 07/26/18 18:59 Last Admin: 06/07/18 07:43 Dose: Not Given Diphenhydramine HCl (Benadryl 50 Mg/Ml) 50 mg IVP Q4HR PRN PRN Reason: Agitation Stop: 08/03/18 13:00 Last Admin: 06/04/18 23:36 Dose: 50 mg Vancomycin HCl 1.25 gm/ Sodium (Chloride) 250 mls @ 165 mls/hr IV Q8HR@0100, 0900,1700 [facility] Stop: 08/02/18 16:59 Last Infusion: 06/07/18 03:20 Dose: Infused Piperacillin Sod/Tazobactam (Sod 4.5 gm/ Sodium Chloride) 100 mls @ 100 mls/hr IV Q8H [facility] Stop: 08/02/18 14:59 Last Infusion: 06/07/18 07:38 Dose: Infused Miscellaneous (Vancomycin Iv Per Pharmacy) 1 ea PRN PRN PRN Reason: PROTOCOL Stop: 07/28/18 14:01 Miscellaneous (Zosyn Iv Per Pharmacy) 1 [facility] PRN PRN PRN Reason: PROTOCOL Stop: 07/28/18 14:04 Morphine Sulfate (Morphine) 1 mg IVP Q4HR PRN PRN Reason: Pain (Moderate) Stop: 07/29/18 10:20 Last Admin: 05/31/18 22:39 Dose: 1 mg Pantoprazole Sodium (Protonix) 40 mg IVP DAILY [facility] Stop: 07/26/18 20:59 Last Admin: 06/06/18 08:51 Dose: Not Given Prednisone (Prednisone) 20 mg PO DAILY [facility] Stop: 08/05/18 08:59 Last Admin: 06/06/18 08:51 Dose: Not Given Quetiapine Fumarate (Seroquel) 50 mg PO BID [facility]; Protocol Stop: 08/05/18 16:59 General: weak HEENT: NC/AT, PERRLA Neck: Supple, No LAD Lungs: ronchi, other (increased air-lung enty) Cardiovascular: RRR, Normal S1, Normal S2 Abdomen: non-tender, positive bowel sound Neurological: alert - Procedures Procedures: Procedures Procedure Code Date RESPIRATORY VENTILATION, GREATER THAN 96 CONSECUTIVE HOURS [id number] 05/27/18 Internal Medicine Assmt/Plan - Assessment Assessment: 1. ACUTE RESPIRATORY FAILURE--IMPROVED 2. BILATERAL PNEUMONIA 3. ASTHMA EXACERBATION 4. HYPERTENSION 5. ACUTE PSYCHOSIS 6. HX OF UNKNOWN PSYCH D/O (POSSIBLE BIPOLAR DISEASE) - Plan Plan: CONT WITH CURRENT TELE SUPPORTIVE CARE AND MGT CONT WITH IV ABXS, IV/INHALED STEROIDS CONT WITH PULM TOILET, O2 SUPPORT CONT WITH SEROQUEL/1:1 SITTER PULM/PSYCH FU Nutritional Asmnt/Malnutr-PDOC - Dietary Evaluation Malnutrition Findings (Please click <Entered> for more info): Nutritional Asmnt/Malnutrition Start: 05/28/18 14: 15 Text: Status: Complete Freq: Protocol: Document 05/28/18 14:15 [email or web address] (Rec: 05/28/18 14:37 [email or web address] [email or web address]) Nutritional Asmnt/Malnutrition Patient General Information Nutritional Screening High Risk Diagnosis respiratory arrest Pertinent Medical Hx/Surgical Hx asthma/COPD Subjective Information Pt from home admitted for respiratory arrest. Pt seen intubated to vent at time of visit. Pt is on propofol noted d/t increasing restlessness per RN note. Glucose 254 at admission noted, trending down to 168 today. Current Diet Order/ Nutrition Support no diet order Pertinent Medications D5-0.45ns, protonix, propofol (55mcg/kg/min) Pertinent Labs 05/28 Na 134, Cr 1.5, glucose 168 05/27 Na 133, Glucose 254 Nutritional Hx/Data Height 1.78 m Height (Calculated Centimeters) 177.8 Current Weight (lbs) 116.12 kg Weight (Calculated Kilograms) 116.1 Weight (Calculated Grams) 494334.6 [place] Body Weight 150 Body Mass Index (BMI) 36.7 Weight Status Obese GI Symptoms GI Symptoms None Last BM not indicated Skin Integrity/Comment: intact Current %PO Negligible < 25% Estimated Nutritional Goals BEE in Kcals: Adj wt of IBW Calories/Kcals/Kg 25-30 adj wt 80kg Kcals Calculated 2914-4206 Protein: Adj wt of IBW Protein g/k Protein Calculated 80 Fluid: ml 2000-2400ml (1ml/kcal) Nutritional Problem 1. Problem Problem inadequate energy intake Etiology pt intubated on vent secondary to respiratory arrest Signs/Symptoms: Pt on NPO status Intervention/Recommendation Comments 1. Monitor NPO status. Will consider alternative nutrition route if pt not able to start oral diet. 2. Monitor wt, labs and skin integrity 3. F/U as high risk in 2-3 days Expected Outcomes/Goals Expected Outcomes/Goals 1. Pt to meet at least 75% of nutritinal needs via oral diet or nutrition support 2. Wt stability, skin to remain intact, labs to approach WNL.
[2018-06-07] MEDS: predniSONE 5 mg/5 mL UDC PO SCH (09:59)
[2018-06-07] MEDS ORDERED: Haloperidol Lactate 2 mg/mL Udc PO SCH (13:45)
[2018-06-07] MEDS ORDERED: Haloperidol Lactate 5 mg/mL 1mL Vial ONE (14:04)
[2018-06-07] MEDS ORDERED: Haloperidol Lactate 5 mg/mL 1mL Vial IM ONE (14:22)
--- NOTE | 2018-06-07 20:41 | Progress Notes ---
DATE: 06/07/2018 PSYCHOLOGY PROGRESS NOTE SUBJECTIVE: The patient is seen in her room and interviewed. Case is discussed with the staff. The patient is presenting as easily agitated. The patient is responding to the clinical questions with a flight of ideas. The patient continues to be grossly psychotic with acute mood swings. The treatment nurse was consulted. The staff reports the patient had refused her antipsychotic medication, which was prescribed by the attending psychiatrist on Thursday; however, the patient did take the medication this morning. OBJECTIVE: Mood is fluctuating. Affect is labile and animated. Eye contact is fair. Thought process shows loose associations with flight of ideas. The patient did not answer questions about suicidal ideation, plan, or intention. The patient did not answer questions about auditory or visual hallucinations. The patient's behavior has been difficult to redirect and is refusing care at times. ASSESSMENT/PLAN: The patient continues to be grossly psychotic. The patient is intermittently refusing care and treatment. The patient presents as oppositional. The attending psychiatrist increased the dose of Seroquel to 50 mg twice a day. This automobile service writer provided reality orientation and differentiation. We provided de-escalation as well as remotivation for the patient to become compliant and stay compliant with all aspects of her care and treatment. The patient is responding poorly to these interventions. We will follow up in 2-3 days to continue the present treatment if the patient is able to demonstrate the capacity to benefit from Psychology service. JOB# [id number] HAYLIE
--- NOTE | 2018-06-07 23:43 | Infectious Disease Prog Note ---
Infectious Disease Subjective - Review of Systems Service Date: 06/07/18 Subjective: No fever. Infectious Disease Objective - Results Result Diagrams: 06/06/18 05:45 06/06/18 05:45 Recent Labs: Laboratory Last Values WBC 21.5 Th/cmm (4.8-10.8) H* 06/06/18 05:45 RBC 4.56 Mil/cmm (3.80-5.10) 06/06/18 05:45 Hgb 13.0 gm/dL (12-16) 06/06/18 05:45 Hct 38.8 % (41.0-60) L 06/06/18 05:45 MCV 85.1 fl (81-100) 06/06/18 05:45 MCH 28.4 pg (27.0-31.0) 06/06/18 05:45 MCHC Differential 33.4 pg (28.0-36.0) 06/06/18 05:45 RDW 14.3 % (11.5-20.0) 06/06/18 05:45 Plt Count 293 Th/cmm (150-400) 06/06/18 05:45 MPV 8.4 fl 06/06/18 05:45 Add Manual Diff YES 06/06/18 05:45 Band Neutrophils % 1 % (0-10) 06/06/18 05:45 Neutrophils (Manual) 69 % (40-80) 06/06/18 05:45 Lymphocytes 18 % (20-50) L 06/06/18 05:45 Monocytes 6 % (2-10) 06/06/18 05:45 Eosinophils 1 % (0-5) 06/06/18 05:45 Basophils 0 % (0-3) 06/06/18 05:45 Metamyelocytes 1 % (0-0) H 06/06/18 05:45 Myelocytes 4 % 06/06/18 05:45 Atypical Lymphocytes 7 % 05/27/18 12:10 Platelet Estimate ADEQUATE (NORMAL) 06/03/18 08:00 Smear Path Review Y 06/05/18 06:54 Specimen Source ARTERIAL 06/01/18 12:00 Sample Site Right Radial 06/01/18 12:00 pH 7.38 (7.35-7.45) 06/01/18 12:00 pCO2 42.2 mmHg (35.0-45.0) 06/01/18 12:00 pO2 59.8 mmHg (80.0-100.0) L 06/01/18 12:00 HCO3 24.5 mEq/L (20.0-26.0) 06/01/18 12:00 Base Excess -0.6 mEq/L (-3.0-3.0) 06/01/18 12:00 O2 Saturation 90.0 % (92.0-100.0) L 06/01/18 12:00 Obi Test Y 06/01/18 12:00 Vent Rate N/A 06/01/18 12:00 Inspired O2 60 06/01/18 12:00 Tidal Volume N/A 06/01/18 12:00 PEEP N/A 06/01/18 12:00 Pressure (ins/psv/peep) N/A 06/01/18 12:00 Critical Value DRAMOS 06/01/18 12:00 Sodium 142 mEq/L (136-145) 06/06/18 05:45 Potassium 3.1 mEq/L (3.5-5.1) L 06/06/18 05:45 Chloride 107 mEq/L (98-107) 06/06/18 05:45 Carbon Dioxide 23.6 mEq/L (21.0-31.0) 06/06/18 05:45 Anion Gap 14.5 (7.0-16.0) 06/06/18 05:45 BUN 34 mg/dL (7-25) H 06/06/18 05:45 Creatinine 0.9 mg/dL (0.6-1.2) 06/06/18 05:45 Est GFR ( Amer) > 60.0 ml/min (>90) 06/06/18 05:45 Est GFR (Non-Af Amer) > 60.0 ml/min 06/06/18 05:45 BUN/Creatinine Ratio 37.8 06/06/18 05:45 Glucose 95 mg/dL (70-105) 06/06/18 05:45 Whole Bld Lactic Acid 2.34 mmol/L (0.60-1.99) H* 05/28/18 06:05 Calcium 8.9 mg/dL (8.6-10.3) 06/06/18 05:45 Magnesium 2.3 mg/dL (1.9-2.7) 06/05/18 06:54 Total Bilirubin 0.7 mg/dL (0.3-1.0) 05/31/18 04:15 AST 53 U/L (13-39) H 05/31/18 04:15 ALT 63 U/L (7-52) H 05/31/18 04:15 Alkaline Phosphatase 53 U/L (34-104) 05/31/18 04:15 B-Natriuretic Peptide 32.9 pg/mL (5.0-100.0) 06/02/18 07:15 Total Protein 6.1 gm/dL (6.0-8.3) 05/31/18 04:15 Albumin 3.5 gm/dL (3.7-5.3) L 05/31/18 04:15 Globulin 2.6 gm/dL 05/31/18 04:15 Albumin/Globulin Ratio 1.4 (1.0-1.8) 05/31/18 04:15 Serum , Qual NEGATIVE (NEGATIVE) 05/27/18 14:10 Urine Source [place] 05/27/18 20:15 Urine Color PINK 05/27/18 20:15 Urine Clarity HAZY (CLEAR) 05/27/18 20:15 Urine pH 5.5 (4.6 - 8.0) 05/27/18 20:15 Ur Specific [place] 1.015 (1.005-1.030) 05/27/18 20:15 Urine Protein TRACE mg/dL (NEGATIVE) 05/27/18 20:15 Urine Glucose (UA) NEGATIVE mg/dL (NEGATIVE) 05/27/18 20:15 Urine Ketones NEGATIVE mg/dL (NEGATIVE) 05/27/18 20:15 Urine Blood LARGE (NEGATIVE) H 05/27/18 20:15 Urine Nitrate NEGATIVE (NEGATIVE) 05/27/18 20:15 Urine Bilirubin NEGATIVE (NEGATIVE) 05/27/18 20:15 Urine Urobilinogen 0.2 E.U./dL (0.2 - 1.0) 05/27/18 20:15 Ur Leukocyte Esterase TRACE (NEGATIVE) H 05/27/18 20:15 Urine RBC 50-100 /hpf (0-5) H 05/27/18 20:15 Urine WBC 2-5 /hpf (0-5) 05/27/18 20:15 Ur Epithelial Cells RARE /lpf (FEW) 05/27/18 20:15 Urine Bacteria OCCASIONAL /hpf (NONE SEEN) 05/27/18 20:15 Fluid Glucose 132.0 mg/dL 05/30/18 15:35 Vancomycin Trough 17.8 ug/mL (5-10) H 06/05/18 06:54 Urine Opiates Screen NEGATIVE (NEGATIVE) 05/27/18 20:15 Urine Methadone Screen NEGATIVE (NEGATIVE) 05/27/18 20:15 Ur Barbiturates Screen NEGATIVE (NEGATIVE) 05/27/18 20:15 Ur Tricyclics Screen NEGATIVE (NEGATIVE) 05/27/18 20:15 Ur Phencyclidine Scrn NEGATIVE (NEGATIVE) 05/27/18 20:15 Amphetamines Screen NEGATIVE (NEGATIVE) 05/27/18 20:15 U Methamphetamines Scrn NEGATIVE (NEGATIVE) 05/27/18 20:15 U Benzodiazepines Scrn POSITIVE (NEGATIVE) H 05/27/18 20:15 U Cocaine Metab Screen NEGATIVE (NEGATIVE) 05/27/18 20:15 U Cannabinoids Screen NEGATIVE (NEGATIVE) 05/27/18 20:15 Influenza A (Rapid) NEG FOR INF A 05/27/18 20:25 Influenza B (Rapid) NEG FOR INF B 05/27/18 20:25 L.pneumophila Antigen Negative (Negative) 06/01/18 06:30 - Physical Exam Vitals and I&O: Vital Signs Temp 98.6 F 06/07/18 20:00 Pulse 106 06/07/18 22:40 Resp 20 06/07/18 22:40 BP 91/47 06/07/18 20:00 Pulse Ox 93 06/07/18 22:40 Intake & Output 06/07/18 06/07/18 06/08/18 06:59 18:59 06:59 Intake Total 250 1250 Balance 250 1250 Weight (lbs) 111.612 kg 111.584 kg Intake: Intake, IV Amount 250 450 Piperacillin Sodium/ 200 Tazobact 4.5 gm In Sodium Chloride 0.9% 100 ml @ 100 mls/hr IV Q8H [facility] Rx# :[id number] Vancomycin HCl 1.25 gm In 250 250 Sodium Chloride 0.9% 250 ml @ 165 mls/hr IV Q8HR@ 0100,0900,1700 [facility] Rx#: [id number] Oral 0 800 Other: # Voids 3 4 # Bowel Movements 0 1 Stool Characteristics Soft Soft Soft Formed Formed Formed Liquid Liquid Weight Source Bedscale Bedscale Active Medications: Current Medications Acetylcysteine (Mucomyst 20%) 2 ml HHN Q4HRT [facility] Stop: 07/28/18 14:59 Last Admin: 06/07/18 22:00 Dose: Not Given Albuterol/Ipratropium (Duoneb Neb) 3 ml HHN Q4HRT [facility] Stop: 07/26/18 15:14 Last Admin: 06/07/18 22:40 Dose: 3 ml Benazepril HCl (Lotensin) 10 mg PO DAILY [facility] Stop: 08/01/18 09:29 Last Admin: 06/07/18 09:56 Dose: 10 mg Budesonide (Pulmicort) 0.5 mg HHN BIDRT [facility] Stop: 07/26/18 18:59 Last Admin: 06/07/18 07:43 Dose: Not Given Diphenhydramine HCl (Benadryl 50 Mg/Ml) 50 mg IVP Q4HR PRN PRN Reason: Agitation Stop: 08/03/18 13:00 Last Admin: 06/04/18 23:36 Dose: 50 mg Haloperidol Lactate (Haldol) 2 mg PO Q6HR PRN; Protocol PRN Reason: Agitation Stop: 08/06/18 17:59 Vancomycin HCl 1.25 gm/ Sodium (Chloride) 250 mls @ 165 mls/hr IV Q8HR@0100, 0900,1700 [facility] Stop: 08/02/18 16:59 Last Admin: 06/07/18 16:59 Dose: 165 mls/hr Piperacillin Sod/Tazobactam (Sod 4.5 gm/ Sodium Chloride) 100 mls @ 100 mls/hr IV Q8H [facility] Stop: 08/02/18 14:59 Last Admin: 06/07/18 22:40 Dose: 100 mls/hr Miscellaneous (Vancomycin Iv Per Pharmacy) 1 ea [facility] PRN PRN PRN Reason: PROTOCOL Stop: 07/28/18 14:01 Miscellaneous (Zosyn Iv Per Pharmacy) 1 ea PRN PRN PRN Reason: PROTOCOL Stop: 07/28/18 14:04 Morphine Sulfate (Morphine) 1 mg IVP Q4HR PRN PRN Reason: Pain (Moderate) Stop: 07/29/18 10:20 Last Admin: 05/31/18 22:39 Dose: 1 mg Pantoprazole Sodium (Protonix) 40 mg IVP DAILY [facility] Stop: 07/26/18 20:59 Last Admin: 06/07/18 09:56 Dose: 40 mg Prednisone (Deltasone) 20 mg PO DAILY [facility] Stop: 08/05/18 08:59 Quetiapine Fumarate (Seroquel) 50 mg PO BID [facility]; Protocol Stop: 08/05/18 16:59 Last Admin: 06/07/18 16:37 Dose: Not Given General: no acute distress, well developed, well nourished HEENT: atraumatic, normocephalic, PERRLA, EOMI Neck: supple, no thyromegaly Cardiovascular: S1S2, regular Lungs: clear to percussion, crackles Abdomen: soft, no tender, no distended Extremities: no cyanosis, no clubbing, no edema Neurological: awake, alert, oriented Skin: intact - Procedures Procedures: Procedures Procedure Code Date RESPIRATORY VENTILATION, GREATER THAN 96 CONSECUTIVE HOURS [id number] 05/27/18 Infectious Disease Assmt/Plan - Assessment Assessment: 1. Pneumonia. 2. Respiratory failure. 3. Sepsis. 4. Asthma and chronic obstructive pulmonary disease. 5. May have interstitial lung disease. 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 8. Leukocytosis, 2/2 steroids. - Plan Plan: 1. Continue vancomycin, and Zosyn. 2. Continue same treatment. Nutritional Asmnt/Malnutr-PDOC - Dietary Evaluation Malnutrition Findings (Please click <Entered> for more info): Nutritional Asmnt/Malnutrition Start: 05/28/18 14: 15 Text: Status: Complete Freq: Protocol: Document 05/28/18 14:15 LCHENG (Rec: 05/28/18 14:37 [email or web address]) Nutritional Asmnt/Malnutrition Patient General Information Nutritional Screening High Risk Diagnosis respiratory arrest Pertinent Medical Hx/Surgical Hx asthma/COPD Subjective Information Pt from home admitted for respiratory arrest. Pt seen intubated to vent at time of visit. Pt is on propofol noted d/t increasing restlessness per RN note. Glucose 254 at admission noted, trending down to 168 today. Current Diet Order/ Nutrition Support no diet order Pertinent Medications D5-0.45ns, protonix, propofol (55mcg/kg/min) Pertinent Labs 05/28 Na 134, Cr 1.5, glucose 168 05/27 Na 133, Glucose 254 Nutritional Hx/Data Height 1.78 m Height (Calculated Centimeters) 177.8 Current Weight (lbs) 116.12 kg Weight (Calculated Kilograms) 116.1 Weight (Calculated Grams) 438958.6 [place] Body Weight 150 Body Mass Index (BMI) 36.7 Weight Status Obese GI Symptoms GI Symptoms None Last BM not indicated Skin Integrity/Comment: intact Current %PO Negligible < 25% Estimated Nutritional Goals BEE in Kcals: Adj wt of IBW Calories/Kcals/Kg 25-30 adj wt 80kg Kcals Calculated 4326-7776 Protein: Adj wt of IBW Protein g/k Protein Calculated 80 Fluid: ml 2000-2400ml (1ml/kcal) Nutritional Problem 1. Problem Problem inadequate energy intake Etiology pt intubated on vent secondary to respiratory arrest Signs/Symptoms: Pt on NPO status Intervention/Recommendation Comments 1. Monitor NPO status. Will consider alternative nutrition route if pt not able to start oral diet. 2. Monitor wt, labs and skin integrity 3. F/U as high risk in 2-3 days Expected Outcomes/Goals Expected Outcomes/Goals 1. Pt to meet at least 75% of nutritinal needs via oral diet or nutrition support 2. Wt stability, skin to remain intact, labs to approach WNL.
--- NOTE | 2018-06-08 00:29 | Progress Notes ---
DATE: 06/07/2018 SUBJECTIVE: Staff was spoken to. The patient is interviewed. The patient is still very paranoid, going on a tangent. The patient's insight and judgment are noted to be very much impaired. Impulse control is noted to be poor. The patient's coping skills are noted to be poor. The patient is not making much sense. The patient has been currently on Seroquel and this is being slowly titrated because the patient has a compromised respiratory status. The patient is having acute mood swings and possibly needs a transfer to the psychiatric hospital since the patient is not able to care for self and is grossly psychotic. The patient has been placed on a 5150 and advised to transfer the patient to any facility that is going to be accepting the patient. JOB# [id number]
[2018-06-08] MEDS: Albuterol/Ipratropium Neb 3 ML AERS HHN SCH ×5 (02:52→19:53)
[2018-06-08] MEDS: Budesonide 0.5 Mg/2 mL Ud HHN SCH ×2 (07:25→19:53)
[2018-06-08] MEDS: Haloperidol Lactate 2 mg/mL Udc PO PRN ×2 (08:49→15:33)
--- NOTE | 2018-06-08 10:16 | Internal Medicine Prog Note ---
Internal Medicine Subjective - Subjective Service Date: 06/08/18 (code vernon called yesterday due to severe agitation- given Haldol) Patient seen and examined:: with staff Patient is:: awake (comfortable), verbal, confused Per staff patient has:: agitated, combative, confused, refusing labs Internal Medicine Objective - Results Result Diagrams: 06/06/18 05:45 06/06/18 05:45 Recent Labs: Laboratory Last Values WBC 21.5 Th/cmm (4.8-10.8) H* 06/06/18 05:45 RBC 4.56 Mil/cmm (3.80-5.10) 06/06/18 05:45 Hgb 13.0 gm/dL (12-16) 06/06/18 05:45 Hct 38.8 % (41.0-60) L 06/06/18 05:45 MCV 85.1 fl (81-100) 06/06/18 05:45 MCH 28.4 pg (27.0-31.0) 06/06/18 05:45 MCHC Differential 33.4 pg (28.0-36.0) 06/06/18 05:45 RDW 14.3 % (11.5-20.0) 06/06/18 05:45 Plt Count 293 Th/cmm (150-400) 06/06/18 05:45 MPV 8.4 fl 06/06/18 05:45 Add Manual Diff YES 06/06/18 05:45 Band Neutrophils % 1 % (0-10) 06/06/18 05:45 Neutrophils (Manual) 69 % (40-80) 06/06/18 05:45 Lymphocytes 18 % (20-50) L 06/06/18 05:45 Monocytes 6 % (2-10) 06/06/18 05:45 Eosinophils 1 % (0-5) 06/06/18 05:45 Basophils 0 % (0-3) 06/06/18 05:45 Metamyelocytes 1 % (0-0) H 06/06/18 05:45 Myelocytes 4 % 06/06/18 05:45 Atypical Lymphocytes 7 % 05/27/18 12:10 Platelet Estimate ADEQUATE (NORMAL) 06/03/18 08:00 Smear Path Review Y 06/05/18 06:54 Specimen Source ARTERIAL 06/01/18 12:00 Sample Site Right Radial 06/01/18 12:00 pH 7.38 (7.35-7.45) 06/01/18 12:00 pCO2 42.2 mmHg (35.0-45.0) 06/01/18 12:00 pO2 59.8 mmHg (80.0-100.0) L 06/01/18 12:00 HCO3 24.5 mEq/L (20.0-26.0) 06/01/18 12:00 Base Excess -0.6 mEq/L (-3.0-3.0) 06/01/18 12:00 O2 Saturation 90.0 % (92.0-100.0) L 06/01/18 12:00 Obi Test Y 06/01/18 12:00 Vent Rate N/A 06/01/18 12:00 Inspired O2 60 06/01/18 12:00 Tidal Volume N/A 06/01/18 12:00 PEEP N/A 06/01/18 12:00 Pressure (ins/psv/peep) N/A 06/01/18 12:00 Critical Value DRAMOS 06/01/18 12:00 Sodium 142 mEq/L (136-145) 06/06/18 05:45 Potassium 3.1 mEq/L (3.5-5.1) L 06/06/18 05:45 Chloride 107 mEq/L (98-107) 06/06/18 05:45 Carbon Dioxide 23.6 mEq/L (21.0-31.0) 06/06/18 05:45 Anion Gap 14.5 (7.0-16.0) 06/06/18 05:45 BUN 34 mg/dL (7-25) H 06/06/18 05:45 Creatinine 0.9 mg/dL (0.6-1.2) 06/06/18 05:45 Est GFR ( Amer) > 60.0 ml/min (>90) 06/06/18 05:45 Est GFR (Non-Af Amer) > 60.0 ml/min 06/06/18 05:45 BUN/Creatinine Ratio 37.8 06/06/18 05:45 Glucose 95 mg/dL (70-105) 06/06/18 05:45 Whole Bld Lactic Acid 2.34 mmol/L (0.60-1.99) H* 05/28/18 06:05 Calcium 8.9 mg/dL (8.6-10.3) 06/06/18 05:45 Magnesium 2.3 mg/dL (1.9-2.7) 06/05/18 06:54 Total Bilirubin 0.7 mg/dL (0.3-1.0) 05/31/18 04:15 AST 53 U/L (13-39) H 05/31/18 04:15 ALT 63 U/L (7-52) H 05/31/18 04:15 Alkaline Phosphatase 53 U/L (34-104) 05/31/18 04:15 B-Natriuretic Peptide 32.9 pg/mL (5.0-100.0) 06/02/18 07:15 Total Protein 6.1 gm/dL (6.0-8.3) 05/31/18 04:15 Albumin 3.5 gm/dL (3.7-5.3) L 05/31/18 04:15 Globulin 2.6 gm/dL 05/31/18 04:15 Albumin/Globulin Ratio 1.4 (1.0-1.8) 05/31/18 04:15 Serum , Qual NEGATIVE (NEGATIVE) 05/27/18 14:10 Urine Source [place] 05/27/18 20:15 Urine Color PINK 05/27/18 20:15 Urine Clarity HAZY (CLEAR) 05/27/18 20:15 Urine pH 5.5 (4.6 - 8.0) 05/27/18 20:15 Ur Specific [place] 1.015 (1.005-1.030) 05/27/18 20:15 Urine Protein TRACE mg/dL (NEGATIVE) 05/27/18 20:15 Urine Glucose (UA) NEGATIVE mg/dL (NEGATIVE) 05/27/18 20:15 Urine Ketones NEGATIVE mg/dL (NEGATIVE) 05/27/18 20:15 Urine Blood LARGE (NEGATIVE) H 05/27/18 20:15 Urine Nitrate NEGATIVE (NEGATIVE) 05/27/18 20:15 Urine Bilirubin NEGATIVE (NEGATIVE) 05/27/18 20:15 Urine Urobilinogen 0.2 E.U./dL (0.2 - 1.0) 05/27/18 20:15 Ur Leukocyte Esterase TRACE (NEGATIVE) H 05/27/18 20:15 Urine RBC 50-100 /hpf (0-5) H 05/27/18 20:15 Urine WBC 2-5 /hpf (0-5) 05/27/18 20:15 Ur Epithelial Cells RARE /lpf (FEW) 05/27/18 20:15 Urine Bacteria OCCASIONAL /hpf (NONE SEEN) 05/27/18 20:15 Fluid Glucose 132.0 mg/dL 05/30/18 15:35 Vancomycin Trough 17.8 ug/mL (5-10) H 06/05/18 06:54 Urine Opiates Screen NEGATIVE (NEGATIVE) 05/27/18 20:15 Urine Methadone Screen NEGATIVE (NEGATIVE) 05/27/18 20:15 Ur Barbiturates Screen NEGATIVE (NEGATIVE) 05/27/18 20:15 Ur Tricyclics Screen NEGATIVE (NEGATIVE) 05/27/18 20:15 Ur Phencyclidine Scrn NEGATIVE (NEGATIVE) 05/27/18 20:15 Amphetamines Screen NEGATIVE (NEGATIVE) 05/27/18 20:15 U Methamphetamines Scrn NEGATIVE (NEGATIVE) 05/27/18 20:15 U Benzodiazepines Scrn POSITIVE (NEGATIVE) H 05/27/18 20:15 U Cocaine Metab Screen NEGATIVE (NEGATIVE) 05/27/18 20:15 U Cannabinoids Screen NEGATIVE (NEGATIVE) 05/27/18 20:15 Influenza A (Rapid) NEG FOR INF A 05/27/18 20:25 Influenza B (Rapid) NEG FOR INF B 05/27/18 20:25 L.pneumophila Antigen Negative (Negative) 06/01/18 06:30 - Physical Exam Vitals and I&O: Vital Signs Temp 98.6 F 06/08/18 04:00 Pulse 101 06/08/18 08:47 Resp 22 06/08/18 07:27 BP 139/76 06/08/18 08:47 Pulse Ox 89 06/08/18 07:25 Intake & Output 06/07/18 06/08/18 06/08/18 18:59 06:59 18:59 Intake Total 1500 590 Balance 1500 590 Weight (lbs) 111.584 kg 111.584 kg Intake: Intake, IV Amount 700 350 Piperacillin Sodium/ 200 100 Tazobact 4.5 gm In Sodium Chloride 0.9% 100 ml @ 100 mls/hr IV Q8H [facility] Rx# :[id number] Vancomycin HCl 1.25 gm In 500 250 Sodium Chloride 0.9% 250 ml @ 165 mls/hr IV Q8HR@ 0100,0900,1700 [facility] Rx#: [id number] Oral 800 240 Other: # Voids 4 2 # Bowel Movements 1 Stool Characteristics Soft Soft Formed Formed Liquid Liquid Weight Source Bedscale Bedscale Active Medications: Current Medications Acetylcysteine (Mucomyst 20%) 2 ml HHN Q4HRT [facility] Stop: 07/28/18 14:59 Last Admin: 06/08/18 07:25 Dose: Not Given Albuterol/Ipratropium (Duoneb Neb) 3 ml HHN Q4HRT [facility] Stop: 07/26/18 15:14 Last Admin: 06/08/18 07:25 Dose: Not Given Benazepril HCl (Lotensin) 10 mg PO DAILY [facility] Stop: 08/01/18 09:29 Last Admin: 06/08/18 08:47 Dose: 10 mg Budesonide (Pulmicort) 0.5 mg HHN BIDRT [facility] Stop: 07/26/18 18:59 Last Admin: 06/08/18 07:25 Dose: Not Given Diphenhydramine HCl (Benadryl 50 Mg/Ml) 50 mg IVP Q4HR PRN PRN Reason: Agitation Stop: 08/03/18 13:00 Last Admin: 06/04/18 23:36 Dose: 50 mg Haloperidol Lactate (Haldol) 2 mg PO Q6HR PRN; Protocol PRN Reason: Agitation Stop: 08/06/18 17:59 Last Admin: 06/08/18 08:49 Dose: 2 mg Vancomycin HCl 1.25 gm/ Sodium (Chloride) 250 mls @ 165 mls/hr IV Q8HR@0100, 0900,1700 [facility] Stop: 08/02/18 16:59 Last Admin: 06/08/18 09:07 Dose: 165 mls/hr Piperacillin Sod/Tazobactam (Sod 4.5 gm/ Sodium Chloride) 100 mls @ 100 mls/hr IV Q8H [facility] Stop: 08/02/18 14:59 Last Admin: 06/08/18 06:28 Dose: 100 mls/hr Miscellaneous (Vancomycin Iv Per Pharmacy) 1 ea MC PRN PRN PRN Reason: PROTOCOL Stop: 07/28/18 14:01 Miscellaneous (Zosyn Iv Per Pharmacy) 1 ea MC PRN PRN PRN Reason: PROTOCOL Stop: 07/28/18 14:04 Morphine Sulfate (Morphine) 1 mg IVP Q4HR PRN PRN Reason: Pain (Moderate) Stop: 07/29/18 10:20 Last Admin: 05/31/18 22:39 Dose: 1 mg Pantoprazole Sodium (Protonix) 40 mg IVP DAILY [facility] Stop: 07/26/18 20:59 Last Admin: 06/08/18 08:45 Dose: 40 mg Prednisone (Deltasone) 20 mg PO DAILY [facility] Stop: 08/05/18 08:59 Last Admin: 06/08/18 08:46 Dose: 20 mg Quetiapine Fumarate (Seroquel) 50 mg PO BID [facility]; Protocol Stop: 08/05/18 16:59 Last Admin: 06/08/18 08:51 Dose: 50 mg General: weak HEENT: NC/AT, PERRLA Neck: Supple, No LAD Lungs: ronchi, other (increased air-lung enty) Cardiovascular: RRR, Normal S1, Normal S2 Abdomen: non-tender, positive bowel sound Extremities: clear Neurological: alert, unable to follow command - Procedures Procedures: Procedures Procedure Code Date RESPIRATORY VENTILATION, GREATER THAN 96 CONSECUTIVE HOURS [id number] 05/27/18 Internal Medicine Assmt/Plan - Assessment Assessment: 1. ACUTE RESPIRATORY FAILURE--IMPROVED 2. BILATERAL PNEUMONIA 3. ASTHMA EXACERBATION 4. HYPERTENSION 5. ACUTE PSYCHOSIS 6. HX OF UNKNOWN PSYCH D/O (POSSIBLE BIPOLAR DISEASE) 7. NONCOMPLIANCE/UNCOOPERATIVE - Plan Plan: CONT WITH CURRENT TELE SUPPORTIVE CARE AND MGT--TRANSFER TO [place] (STABLE ON TELE) CONT WITH IV ABXS, IV/INHALED STEROIDS CONT WITH PULM TOILET, O2 SUPPORT CONT WITH SEROQUEL/1:1 SITTER PULM/PSYCH/PSYCHOLOGY FU PT CLEARED FOR ACUTE PSYCH TRANSFER Nutritional Asmnt/Malnutr-PDOC - Dietary Evaluation Malnutrition Findings (Please click <Entered> for more info): Nutritional Asmnt/Malnutrition Start: 05/28/18 14: 15 Text: Status: Complete Freq: Protocol: Document 05/28/18 14:15 FRANCISCO JAVIER (Rec: 05/28/18 14:37 FRANCISCO JAVIER [email or web address]) Nutritional Asmnt/Malnutrition Patient General Information Nutritional Screening High Risk Diagnosis respiratory arrest Pertinent Medical Hx/Surgical Hx asthma/COPD Subjective Information Pt from home admitted for respiratory arrest. Pt seen intubated to vent at time of visit. Pt is on propofol noted d/t increasing restlessness per RN note. Glucose 254 at admission noted, trending down to 168 today. Current Diet Order/ Nutrition Support no diet order Pertinent Medications D5-0.45ns, protonix, propofol (55mcg/kg/min) Pertinent Labs 05/28 Na 134, Cr 1.5, glucose 168 05/27 Na 133, Glucose 254 Nutritional Hx/Data Height 1.78 m Height (Calculated Centimeters) 177.8 Current Weight (lbs) 116.12 kg Weight (Calculated Kilograms) 116.1 Weight (Calculated Grams) 999898.6 [place] Body Weight 150 Body Mass Index (BMI) 36.7 Weight Status Obese GI Symptoms GI Symptoms None Last BM not indicated Skin Integrity/Comment: intact Current %PO Negligible < 25% Estimated Nutritional Goals BEE in Kcals: Adj wt of IBW Calories/Kcals/Kg 25-30 adj wt 80kg Kcals Calculated 3180-1472 Protein: Adj wt of IBW Protein g/k Protein Calculated 80 Fluid: ml 2000-2400ml (1ml/kcal) Nutritional Problem 1. Problem Problem inadequate energy intake Etiology pt intubated on vent secondary to respiratory arrest Signs/Symptoms: Pt on NPO status Intervention/Recommendation Comments 1. Monitor NPO status. Will consider alternative nutrition route if pt not able to start oral diet. 2. Monitor wt, labs and skin integrity 3. F/U as high risk in 2-3 days Expected Outcomes/Goals Expected Outcomes/Goals 1. Pt to meet at least 75% of nutritinal needs via oral diet or nutrition support 2. Wt stability, skin to remain intact, labs to approach WNL.
--- NOTE | 2018-06-08 11:33 | Diagnostic Imaging Report ---
Portable chest x-ray History: Shortness of breath Allowing for portable technique the heart size is normal. No focal pulmonary parenchymal processes. No hilar or mediastinal abnormalities. Impression: No acute abnormalities.
[2018-06-08] MEDS ORDERED: Haloperidol Lactate 5 mg/mL 1mL Vial ONE (15:39)
[2018-06-08] MEDS ORDERED: Haloperidol Lactate 5 mg/mL 1mL Vial IM ONE (15:53)
[2018-06-08 16:22] LABS: BASOPHILE ABSOLUTE 0.2 Th/cumm (0-0.2); EOSINOPHILE ABSOLUTE 0.2 Th/cmm (0.1-0.4); HEMATOCRIT 37.4 % (41.0-60); HEMOGLOBIN 12.2 gm/dL (12-16); LYMPHOCYTE ABSOLUTE 0.7 Th/cmm (1.5-3.0); MEAN CELL VOLUME 88.1 fl (81-100); MEAN CORPUSCULAR HEMOGLOBIN 28.8 pg (27.0-31.0); MEAN CORPUSCULAR HGB CONC 32.7 pg (28.0-36.0); MEAN PLATELET VOLUME 8.2 fl; MONOCYTE ABSOLUTE 0.9 Th/cmm (0.3-1.0); NEUTROPHILE ABSOLUTE 21.7 Th/cmm (1.8-8.0); PLATELET COUNT 215 Th/cmm (150-400); RED BLOOD COUNT 4.24 Mil/cmm (3.80-5.10); RED CELL DISTRIBUTION WIDTH 15.3 % (11.5-20.0)
[2018-06-08 16:30] LABS: WHITE BLOOD COUNT 23.7 Th/cmm (4.8-10.8)
[2018-06-08 16:42] LABS: ANION GAP 14.9 (7.0-16.0); CALCIUM SERUM 8.5 mg/dL (8.6-10.3); CREATININE - SERUM 2.2 mg/dL (0.6-1.2); GFR AFRICAN-AMERICAN 31.3 ml/min (>90); GFR NON AFRICAN-AMERICAN 25.9 ml/min; MAGNESIUM 2.1 mg/dL (1.9-2.7); POTASSIUM SERUM 3.9 mEq/L (3.5-5.1)
--- NOTE | 2018-06-08 16:49 | Infectious Disease Prog Note ---
Infectious Disease Subjective - Review of Systems Service Date: 06/08/18 Subjective: No fever. Aggressive and talking about her mother's dying. aggressive blaming her sitter. irrelevant talks, yelling and shouting. Infectious Disease Objective - Results Result Diagrams: 06/08/18 16:00 06/08/18 16:00 Recent Labs: Laboratory Last Values WBC 23.7 Th/cmm (4.8-10.8) H* 06/08/18 16:00 RBC 4.24 Mil/cmm (3.80-5.10) 06/08/18 16:00 Hgb 12.2 gm/dL (12-16) 06/08/18 16:00 Hct 37.4 % (41.0-60) L 06/08/18 16:00 MCV 88.1 fl (81-100) 06/08/18 16:00 MCH 28.8 pg (27.0-31.0) 06/08/18 16:00 MCHC Differential 32.7 pg (28.0-36.0) 06/08/18 16:00 RDW 15.3 % (11.5-20.0) 06/08/18 16:00 Plt Count 215 Th/cmm (150-400) 06/08/18 16:00 MPV 8.2 fl 06/08/18 16:00 Add Manual Diff YES 06/08/18 16:00 Band Neutrophils % 1 % (0-10) 06/06/18 05:45 Neutrophils (Manual) 69 % (40-80) 06/06/18 05:45 Lymphocytes 18 % (20-50) L 06/06/18 05:45 Monocytes 6 % (2-10) 06/06/18 05:45 Eosinophils 1 % (0-5) 06/06/18 05:45 Basophils 0 % (0-3) 06/06/18 05:45 Metamyelocytes 1 % (0-0) H 06/06/18 05:45 Myelocytes 4 % 06/06/18 05:45 Atypical Lymphocytes 7 % 05/27/18 12:10 Platelet Estimate ADEQUATE (NORMAL) 06/03/18 08:00 Smear Path Review Y 06/05/18 06:54 Specimen Source ARTERIAL 06/01/18 12:00 Sample Site Right Radial 06/01/18 12:00 pH 7.38 (7.35-7.45) 06/01/18 12:00 pCO2 42.2 mmHg (35.0-45.0) 06/01/18 12:00 pO2 59.8 mmHg (80.0-100.0) L 06/01/18 12:00 HCO3 24.5 mEq/L (20.0-26.0) 06/01/18 12:00 Base Excess -0.6 mEq/L (-3.0-3.0) 06/01/18 12:00 O2 Saturation 90.0 % (92.0-100.0) L 06/01/18 12:00 Obi Test Y 06/01/18 12:00 Vent Rate N/A 06/01/18 12:00 Inspired O2 60 06/01/18 12:00 Tidal Volume N/A 06/01/18 12:00 PEEP N/A 06/01/18 12:00 Pressure (ins/psv/peep) N/A 06/01/18 12:00 Critical Value DRAMOS 06/01/18 12:00 Sodium 142 mEq/L (136-145) 06/06/18 05:45 Potassium 3.1 mEq/L (3.5-5.1) L 06/06/18 05:45 Chloride 107 mEq/L (98-107) 06/06/18 05:45 Carbon Dioxide 23.6 mEq/L (21.0-31.0) 06/06/18 05:45 Anion Gap 14.5 (7.0-16.0) 06/06/18 05:45 BUN 34 mg/dL (7-25) H 06/06/18 05:45 Creatinine 0.9 mg/dL (0.6-1.2) 06/06/18 05:45 Est GFR ( Amer) > 60.0 ml/min (>90) 06/06/18 05:45 Est GFR (Non-Af Amer) > 60.0 ml/min 06/06/18 05:45 BUN/Creatinine Ratio 37.8 06/06/18 05:45 Glucose 95 mg/dL (70-105) 06/06/18 05:45 Whole Bld Lactic Acid 2.34 mmol/L (0.60-1.99) H* 05/28/18 06:05 Calcium 8.9 mg/dL (8.6-10.3) 06/06/18 05:45 Magnesium 2.3 mg/dL (1.9-2.7) 06/05/18 06:54 Total Bilirubin 0.7 mg/dL (0.3-1.0) 05/31/18 04:15 AST 53 U/L (13-39) H 05/31/18 04:15 ALT 63 U/L (7-52) H 05/31/18 04:15 Alkaline Phosphatase 53 U/L (34-104) 05/31/18 04:15 B-Natriuretic Peptide 32.9 pg/mL (5.0-100.0) 06/02/18 07:15 Total Protein 6.1 gm/dL (6.0-8.3) 05/31/18 04:15 Albumin 3.5 gm/dL (3.7-5.3) L 05/31/18 04:15 Globulin 2.6 gm/dL 05/31/18 04:15 Albumin/Globulin Ratio 1.4 (1.0-1.8) 05/31/18 04:15 Serum , Qual NEGATIVE (NEGATIVE) 05/27/18 14:10 Urine Source [place] 05/27/18 20:15 Urine Color PINK 05/27/18 20:15 Urine Clarity HAZY (CLEAR) 05/27/18 20:15 Urine pH 5.5 (4.6 - 8.0) 05/27/18 20:15 Ur Specific [place] 1.015 (1.005-1.030) 05/27/18 20:15 Urine Protein TRACE mg/dL (NEGATIVE) 05/27/18 20:15 Urine Glucose (UA) NEGATIVE mg/dL (NEGATIVE) 05/27/18 20:15 Urine Ketones NEGATIVE mg/dL (NEGATIVE) 05/27/18 20:15 Urine Blood LARGE (NEGATIVE) H 05/27/18 20:15 Urine Nitrate NEGATIVE (NEGATIVE) 05/27/18 20:15 Urine Bilirubin NEGATIVE (NEGATIVE) 05/27/18 20:15 Urine Urobilinogen 0.2 E.U./dL (0.2 - 1.0) 05/27/18 20:15 Ur Leukocyte Esterase TRACE (NEGATIVE) H 05/27/18 20:15 Urine RBC 50-100 /hpf (0-5) H 05/27/18 20:15 Urine WBC 2-5 /hpf (0-5) 05/27/18 20:15 Ur Epithelial Cells RARE /lpf (FEW) 05/27/18 20:15 Urine Bacteria OCCASIONAL /hpf (NONE SEEN) 05/27/18 20:15 Fluid Glucose 132.0 mg/dL 05/30/18 15:35 Vancomycin Trough 17.8 ug/mL (5-10) H 06/05/18 06:54 Urine Opiates Screen NEGATIVE (NEGATIVE) 05/27/18 20:15 Urine Methadone Screen NEGATIVE (NEGATIVE) 05/27/18 20:15 Ur Barbiturates Screen NEGATIVE (NEGATIVE) 05/27/18 20:15 Ur Tricyclics Screen NEGATIVE (NEGATIVE) 05/27/18 20:15 Ur Phencyclidine Scrn NEGATIVE (NEGATIVE) 05/27/18 20:15 Amphetamines Screen NEGATIVE (NEGATIVE) 05/27/18 20:15 U Methamphetamines Scrn NEGATIVE (NEGATIVE) 05/27/18 20:15 U Benzodiazepines Scrn POSITIVE (NEGATIVE) H 05/27/18 20:15 U Cocaine Metab Screen NEGATIVE (NEGATIVE) 05/27/18 20:15 U Cannabinoids Screen NEGATIVE (NEGATIVE) 05/27/18 20:15 Influenza A (Rapid) NEG FOR INF A 05/27/18 20:25 Influenza B (Rapid) NEG FOR INF B 05/27/18 20:25 L.pneumophila Antigen Negative (Negative) 06/01/18 06:30 - Physical Exam Vitals and I&O: Vital Signs Temp 98.6 F 06/08/18 04:00 Pulse 110 06/08/18 15:56 Resp 20 06/08/18 15:56 BP 107/82 06/08/18 15:56 Pulse Ox 93 06/08/18 15:56 Intake & Output 06/07/18 06/08/18 06/08/18 18:59 06:59 18:59 Intake Total 1500 590 Balance 1500 590 Weight (lbs) 111.584 kg 111.584 kg Intake: Intake, IV Amount 700 350 Piperacillin Sodium/ 200 100 Tazobact 4.5 gm In Sodium Chloride 0.9% 100 ml @ 100 mls/hr IV Q8H [facility] Rx# :[id number] Vancomycin HCl 1.25 gm In 500 250 Sodium Chloride 0.9% 250 ml @ 165 mls/hr IV Q8HR@ 0100,0900,1700 [facility] Rx#: [id number] Oral 800 240 Other: # Voids 4 2 # Bowel Movements 1 Stool Characteristics Soft Soft Soft Formed Formed Formed Liquid Liquid Liquid Weight Source Bedscale Bedscale Active Medications: Current Medications Acetylcysteine (Mucomyst 20%) 2 ml HHN Q4HRT [facility] Stop: 07/28/18 14:59 Last Admin: 06/08/18 14:29 Dose: Not Given Albuterol/Ipratropium (Duoneb Neb) 3 ml HHN Q4HRT [facility] Stop: 07/26/18 15:14 Last Admin: 06/08/18 14:30 Dose: Not Given Benazepril HCl (Lotensin) 10 mg PO DAILY [facility] Stop: 08/01/18 09:29 Last Admin: 06/08/18 08:47 Dose: 10 mg Budesonide (Pulmicort) 0.5 mg HHN BIDRT [facility] Stop: 07/26/18 18:59 Last Admin: 06/08/18 07:25 Dose: Not Given Diphenhydramine HCl (Benadryl 50 Mg/Ml) 50 mg IVP Q4HR PRN PRN Reason: Agitation Stop: 08/03/18 13:00 Last Admin: 06/04/18 23:36 Dose: 50 mg Haloperidol Lactate (Haldol) 2 mg PO Q6HR PRN; Protocol PRN Reason: Agitation Stop: 08/06/18 17:59 Last Admin: 06/08/18 15:33 Dose: 2 mg Vancomycin HCl 1.25 gm/ Sodium (Chloride) 250 mls @ 165 mls/hr IV Q8HR@0100, 0900,1700 [facility] Stop: 08/02/18 16:59 Last Admin: 06/08/18 09:07 Dose: 165 mls/hr Piperacillin Sod/Tazobactam (Sod 4.5 gm/ Sodium Chloride) 100 mls @ 100 mls/hr IV Q8H [facility] Stop: 08/02/18 14:59 Last Admin: 06/08/18 06:28 Dose: 100 mls/hr Miscellaneous (Vancomycin Iv Per Pharmacy) 1 ea PRN PRN PRN Reason: PROTOCOL Stop: 07/28/18 14:01 Miscellaneous (Zosyn Iv Per Pharmacy) 1 ea PRN PRN PRN Reason: PROTOCOL Stop: 07/28/18 14:04 Morphine Sulfate (Morphine) 1 mg IVP Q4HR PRN PRN Reason: Pain (Moderate) Stop: 07/29/18 10:20 Last Admin: 05/31/18 22:39 Dose: 1 mg Pantoprazole Sodium (Protonix) 40 mg IVP DAILY [facility] Stop: 07/26/18 20:59 Last Admin: 06/08/18 08:45 Dose: 40 mg Prednisone (Deltasone) 20 mg PO DAILY [facility] Stop: 08/05/18 08:59 Last Admin: 06/08/18 08:46 Dose: 20 mg Quetiapine Fumarate (Seroquel) 50 mg PO BID [facility]; Protocol Stop: 08/05/18 16:59 Last Admin: 06/08/18 08:51 Dose: 50 mg General: no acute distress, well developed, well nourished HEENT: atraumatic, normocephalic, PERRLA Neck: supple, no thyromegaly Cardiovascular: S1S2, regular Lungs: clear to auscultation bilaterally, clear to percussion Abdomen: soft, no tender, no distended, no rebound, no hepatomegaly, no splenomegaly Extremities: no cyanosis, no clubbing Neurological: awake, alert, oriented Skin: intact - Procedures Procedures: Procedures Procedure Code Date RESPIRATORY VENTILATION, GREATER THAN 96 CONSECUTIVE HOURS [id number] 05/27/18 Infectious Disease Assmt/Plan - Assessment Assessment: 1. Pneumonia. 2. Respiratory failure. Improved. 3. Leukocytosis persistent. 4. Asthma and chronic obstructive pulmonary disease. 5. May have interstitial lung disease. 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 8. Leukocytosis, 2/2 steroids. 9. acute psychosis. - Plan Plan: 1. Continue Zosyn. d/c vanco 2. Continue same treatment. 3. CONSIDER HEMATOLOGY CONSULT AND GET RECORDS FROP PREVIOUS ADMISSIONS AT DIFFERENT HOSPITAL. 4. Psych consult for intervention. Nutritional Asmnt/Malnutr-PDOC - Dietary Evaluation Malnutrition Findings (Please click <Entered> for more info): Nutritional Asmnt/Malnutrition Start: 05/28/18 14: 15 Text: Status: Complete Freq: Protocol: Document 05/28/18 14:15 LCHENG (Rec: 05/28/18 14:37 LCHENG [email or web address]) Nutritional Asmnt/Malnutrition Patient General Information Nutritional Screening High Risk Diagnosis respiratory arrest Pertinent Medical Hx/Surgical Hx asthma/COPD Subjective Information Pt from home admitted for respiratory arrest. Pt seen intubated to vent at time of visit. Pt is on propofol noted d/t increasing restlessness per RN note. Glucose 254 at admission noted, trending down to 168 today. Current Diet Order/ Nutrition Support no diet order Pertinent Medications D5-0.45ns, protonix, propofol (55mcg/kg/min) Pertinent Labs 05/28 Na 134, Cr 1.5, glucose 168 05/27 Na 133, Glucose 254 Nutritional Hx/Data Height 1.78 m Height (Calculated Centimeters) 177.8 Current Weight (lbs) 116.12 kg Weight (Calculated Kilograms) 116.1 Weight (Calculated Grams) 248117.6 [place] Body Weight 150 Body Mass Index (BMI) 36.7 Weight Status Obese GI Symptoms GI Symptoms None Last BM not indicated Skin Integrity/Comment: intact Current %PO Negligible < 25% Estimated Nutritional Goals BEE in Kcals: Adj wt of IBW Calories/Kcals/Kg 25-30 adj wt 80kg Kcals Calculated 9699-6154 Protein: Adj wt of IBW Protein g/k Protein Calculated 80 Fluid: ml 2000-2400ml (1ml/kcal) Nutritional Problem 1. Problem Problem inadequate energy intake Etiology pt intubated on vent secondary to respiratory arrest Signs/Symptoms: Pt on NPO status Intervention/Recommendation Comments 1. Monitor NPO status. Will consider alternative nutrition route if pt not able to start oral diet. 2. Monitor wt, labs and skin integrity 3. F/U as high risk in 2-3 days Expected Outcomes/Goals Expected Outcomes/Goals 1. Pt to meet at least 75% of nutritinal needs via oral diet or nutrition support 2. Wt stability, skin to remain intact, labs to approach WNL.
[2018-06-08 21:06] LABS: BAND NEUTROPHILE 2 % (0-10); LYMPHOCYTE 5 % (20-50); MONOCYTE 4 % (2-10); NEUTROPHILS 89 % (40-80)
--- NOTE | 2018-06-09 04:06 | Progress Notes ---
DATE: 06/08/2018 SUBJECTIVE: Staff was spoken to. The patient is interviewed. The patient continues to be dysphoric. The patient has been going on a tangent. The patient has been very paranoid. Insight and judgment are very much impaired. Impulse control is noted to be poor. Coping skills are also noted to be very poor. The patient is not making much sense. The patient is very intrusive and impulsive and has been threatening the staff. In view of this one, it has been decided to continue the patient with the Haldol on a p.r.n. basis and follow the patient with the supportive therapy. The patient is currently on Seroquel and has been able to tolerate the medications. No side effects to the medications are noted. 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 PLAN: To continue the patient with the supportive therapy and await for transfer of this patient to a psychiatric unit whenever there is a bed available. JOB# [id number]
--- NOTE | 2018-06-09 17:26 | Progress Notes ---
DATE: PULMONARY PROGRESS NOTE SUBJECTIVE: The patient appears to be doing okay, still very agitated and psychotic. receiving Haldol on and off. Respiratory hall, no distress. Still refusing medications. OBJECTIVE: VITAL SIGNS: Afebrile, pulse 112, respirations 18, blood pressure 107/83, saturation 94% on room air, temperature 98.6. CHEST: Good breath sound. No wheezing or crackles. HEART: Regular rate and rhythm. ABDOMEN: Soft. EXTREMITIES: No edema. IMAGING: Last chest x-ray completely clear. No evidence of interstitial lung process or pneumonia. IMPRESSION: 1. Respiratory failure, resolved. 2. Pneumonia, resolved. 3. Asthma, stable. 4. Psychosis and possible underlying problem such as schizophrenia. Other mentally issues not clear at this point. 5. Respiratory hall, the patient is doing well, awaiting transfer to mental health facility. I will sign off the case. JOB# [id number]
== END 2018-06-08 23:08 | disposition short-term general hospital (02) | DRG 870 ==
LOC: ER 11:37 → ICU 12:00 → TELE 06-03 07:06 → MSI 06-08 10:47
PROVIDERS: ADMIT Internal Medicine; ATTEND Internal Medicine
PROC: 5A1955Z Respiratory Ventilation, Greater than 96 Consecutive Hours (ICD-10-PCS; principal; 2018-05-27)
PROC: 0BH17EZ Insertion of Endotracheal Airway into Trachea, Via Natural or Artificial Opening (ICD-10-PCS; 2018-05-27)
DX: A41.9 Sepsis, unspecified organism (principal); J18.9 Pneumonia, unspecified organism; J96.02 Acute respiratory failure with hypercapnia; J45.901 Unspecified asthma with (acute) exacerbation; J44.0 Chronic obstructive pulmonary disease with (acute) lower respiratory infection; F23 Brief psychotic disorder; F41.9 Anxiety disorder, unspecified; R23.0 Cyanosis; E66.9 Obesity, unspecified; F29 Unspecified psychosis not due to a substance or known physiological condition; T38.0X5A Adverse effect of glucocorticoids and synthetic analogues, initial encounter; Y92.89 Other specified places as the place of occurrence of the external cause; D72.829 Elevated white blood cell count, unspecified; Z68.35 Body mass index [BMI] 35.0-35.9, adult
CPT/HCPCS: 36415-UA; 36600-90; 71045-TC; 71250-TC; 80048-TC; 80053-TC; 80202-TC; 80307; 81001-TC; 82803-TC; 82945-TC; 83036-90; 83605; 83735-TC; 83880-TC; 84703-TC; 85007-TC; 85025-TC; 87070; 87449-90; 87804-TC; 90779; 90799; 93005; 94002; 94003; 94640; 94664; 94760; 97530; 99201; C9113; J0330; J0456; J0692; J1200; J1630; J1940; J2060; J2270; J2543; J2704; J2920; J2930; J3370; J7030; J7040; J7512; J7613; X3904; X7704; Z7610